=== PATIENT | female | born 1960 | race Caucasian/White ===

== ENCOUNTER → 2016-08-13 | Day surgery (SDC) | payer OTHER ==
[~2016-08-13] MED LIST: AZIT250T PO; DULO30CA2 PO; IV RINGERS,LACTATED 1000ML 1,000 ML IV SCH; LANS30CA PO; LEVO75TA5 PO; LIDOCAINE 2% PF Vial for OR 5 ML VIAL. ONE; MELO-150 PO; PROPOFOL 20 ML IV ONE; ROPI1TAB PO
[2016-08-13 08:20] VITALS: BP 133/75
== END | disposition home or self-care (01) ==
LOC: ENDOS 06:21
PROVIDERS: ATTEND Internal Medicine Gastroenterology
DX: K22.2 Esophageal obstruction (principal); K44.9 Diaphragmatic hernia without obstruction or gangrene; K29.70 Gastritis, unspecified, without bleeding; F41.9 Anxiety disorder, unspecified; F32.9 Major depressive disorder, single episode, unspecified; M19.90 Unspecified osteoarthritis, unspecified site; E03.9 Hypothyroidism, unspecified; Z80.3 Family history of malignant neoplasm of breast; Z87.891 Personal history of nicotine dependence; Z90.49 Acquired absence of other specified parts of digestive tract; Z98.51 Tubal ligation status
CPT/HCPCS: 43235; 43450; 99156; J2704

== ENCOUNTER 2016-12-09 05:50 | Observation (INO) | payer OTHER ==
[~2016-12-09] VITALS: Ht 180.3 cm; Wt 125.2 kg
[~2016-12-09 05:50] MED LIST changes: +ATOR20TA58 PO; -IV RINGERS,LACTATED 1000ML 1,000 ML IV SCH; -LIDOCAINE 2% PF Vial for OR 5 ML VIAL. ONE; +LIOT25TA3 PO; -MELO-150 PO; +MELO15TA23 PO; +MONT10TA9 PO; -PROPOFOL 20 ML IV ONE
[2016-12-09 06:47] LABS: BASO % 1 % (0-3); EOS % 3 % (0-3); HEMATOCRIT 39.6 % (36.0-47.0); HEMOGLOBIN 13.1 g/dL (12.0-15.5); LYMPH # 1.9 x10^3/uL (1.0-4.8); LYMPH % 28 % (24-48); MEAN CORPUSCULAR HEMOGLOBIN 28 pg (25-35); MEAN CORPUSCULAR HGB CONC 33 g/dL (31-37); MEAN CORPUSCULAR VOLUME 85 fL (79-100); MONO % 8 % (0-9); NEUT % 60 % (31-73); PLATELET COUNT 195 x10^3/uL (140-400); RED BLOOD COUNT 4.65 x10^6/uL (3.50-5.40); RED CELL DISTRIBUTION WIDTH 14.2 % (11.5-14.5); WHITE BLOOD COUNT 6.6 x10^3/uL (4.0-11.0)
[2016-12-09] MEDS ORDERED: LIDOCAINE 1% 1 ML SYRINGE. ID PRN (07:00)
[2016-12-09] MEDS ORDERED: ONDANSETRON PF 4 MG/2 ML VIAL. IV PRN ×2 (07:00→10:45)
[2016-12-09] MEDS ORDERED: IV RINGERS,LACTATED 1000ML 1,000 ML IV SCH (07:00)
[2016-12-09] MEDS ORDERED: fentaNYL PF VIAL 100 MCG/2 ML VIAL IV PRN (07:00)
[2016-12-09] MEDS ORDERED: HYDROmorphone 2 MG/ML VIAL IV PRN (07:00)
[2016-12-09] MEDS ORDERED: PROCHLORPERAZINE 10 MG/2 ML VIAL. IV PRN ×2 (07:00→10:45)
[2016-12-09] MEDS ORDERED: MORPHINE SULFATE 2 MG/ML DISP.SYRIN. IV PRN (07:00)
[2016-12-09] MEDS ORDERED: ESTROGENS, CONJ VAGINAL CREAM 30GM TUBE. ONE (07:12)
[2016-12-09] MEDS ORDERED: LIDOCAINE 1% PF 30 ML VIAL. ONE (07:16)
[2016-12-09] MEDS ORDERED: BUPIVAC MPF-EPI 0.5%-1:200000 30 ML VIAL. ONE ×2 (07:16→09:42)
[2016-12-09] MEDS ORDERED: DEXAMETHASONE SOD PHOS 20 MG/5 ML VIAL. ONE (07:43)
[2016-12-09] MEDS ORDERED: PROPOFOL 20 ML IV ONE (07:43)
[2016-12-09] MEDS ORDERED: MIDAZOLAM HCL/PF 2 MG/2 ML VIAL. ONE (07:43)
[2016-12-09] MEDS ORDERED: fentaNYL PF VIAL 100 MCG/2 ML VIAL ONE ×4 (07:43→11:00)
[2016-12-09] MEDS ORDERED: ROCURONIUM 100 MG/10 ML VIAL. ONE (07:43)
[2016-12-09] MEDS ORDERED: LIDOCAINE 2% PF Vial for OR 5 ML VIAL. ONE (07:43)
[2016-12-09] MEDS ORDERED: ONDANSETRON PF 4 MG/2 ML VIAL. ONE (07:43)
[2016-12-09] MEDS ORDERED: NEOSTIGMINE 10 MG/10 ML VIAL. ONE (07:49)
[2016-12-09] MEDS ORDERED: 0.9 % SODIUM CHLORIDE 50 ML VIAL. IJ ONE (08:24)
[2016-12-09] MEDS ORDERED: PHENYLEPHRINE 10 MG/ML VIAL. ONE (08:24)
[2016-12-09] MEDS ORDERED: GLYCOPYRROLATE 1 MG/5 ML VIAL. ONE (08:29)
[2016-12-09] MEDS ORDERED: KETOROLAC 30 MG/ML INJ FOR OR. INJ ONE (09:40)
--- NOTE | 2016-12-09 10:43 | PDOC ---
BRIEF OPERATIVE NOTE Pre-Op Diagnosis 1. MARIZOL 2. Complete Uterovaginal Prolapse Post-Op Diagnosis Same Procedure Performed 1. TVH & BSO 2. SSF 3. Bladder Sling 4. Anterior and Posterior Colporrhaphy Surgeon Dr. Fisher Anesthesia Type: General Blood Loss 300 ml Specimens Obtained uterus, cervix, connie. fallopian tubes and ovaries Findings complete uterovaginal prolapse with MARIZOL Complications none BEBO FISHER Jr, MD Dec 09, 2016 10:43
[2016-12-09] MEDS ORDERED: ZOLPIDEM 5 MG TABLET. PO PRN (10:45)
[2016-12-09] MEDS ORDERED: CALCIUM CARBONATE 500 MG TAB.CHEW PO PRN (10:45)
[2016-12-09] MEDS ORDERED: DEXTROSE 50% 25 GM / 50ML DISP.SYRIN. IV PRN (10:45)
[2016-12-09] MEDS ORDERED: diphenhydrAMINE HCL 25 MG CAPSULE PO PRN (10:45)
[2016-12-09] MEDS ORDERED: diphenhydrAMINE 50 MG/ML VIAL IV PRN (10:45)
[2016-12-09] MEDS ORDERED: 0.9 % SODIUM CHLORIDE 10 ML DISP.SYRIN. IV PRN (10:45)
[2016-12-09] MEDS: fentaNYL PF VIAL 100 MCG/2 ML VIAL IV PRN ×2 (11:32→12:02)
--- NOTE | 2016-12-09 12:25 | OP ---
DATE OF SURGERY: PREOPERATIVE DIAGNOSES: 1. Stress urinary incontinence. 2. Complete uterovaginal prolapse. POSTOPERATIVE DIAGNOSES: 1. Stress urinary incontinence. 2. Complete uterovaginal prolapse. PROCEDURE: 1. Transvaginal hysterectomy, bilateral salpingo-oophorectomy. 2. Sacrospinous ligament fixation. 3. Bladder sling placement. 4. Anterior and posterior colporrhaphy. SURGEON: Bebo Fisher M.D. ANESTHESIA: GETA. ESTIMATED BLOOD LOSS: 300 mL. COMPLICATIONS: None. FINDINGS: Complete uterovaginal prolapse with stress urinary incontinence. SUMMARY: A 56-year-old female who was diagnosed with complete uterovaginal prolapse and stress urinary incontinence required surgical procedure in the form of TVH, BSO, sacrospinous ligament fixation, anterior, posterior repair and suburethral bladder sling placement. The patient was counseled on risks, benefits and expectations and voiced a clear understanding to proceed. DESCRIPTION OF PROCEDURE: The patient was taken to surgery suite and placed in dorsal lithotomy position. She was prepped with Betadine solution and draped in a sterile fashion. After adequate anesthesia, a weighted speculum and curved Sam placed vaginally. Jason clamps were placed on the anterior and posterior lip of the cervix. A 0.5% Marcaine with epinephrine was injected in a circumferential manner. Bovie cautery was utilized to circumscribe the cervix. The vaginal mucosa was dissected away from the lower uterine segment using blunt dissection, a moist Ray-Radha. The parametrial tissues were clamped bilaterally with curved Christen clamps, cut and suture ligated with 2-0 Vicryl suture. The posterior cul-de-sac was entered sharply using curved Prado scissors. The long weighted speculum was placed. The anterior cul-de-sac was entered sharply using Metzenbaum scissors. The curved Linden was repositioned. The cardinal ligaments and uterosacral ligaments were clamped bilaterally, cut, and suture ligated. The uterus was retroverted, which the uteroovarian pedicles were clamped bilaterally, cut, and suture ligated. The uterus and cervix were then removed. [place] retractors were then used to grasp the right fallopian tube and ovary, which the right infundibula ligament was clamped with curved Christen clamps, cut, and suture ligated. Same process took place for the left adnexa. We now proceeded to the sacrospinous ligament fixation in which the right sacrospinous ligament was palpated. The Capio device was utilized to place permanent sutures through the medial aspect of the right sacrospinous ligament. This was then attached to the anterior and posterior vaginal cuff wall. This was performed with 2 sutures in this manner to provide good vaginal cuff support. The remainder of the vaginal cuff was reapproximated using 2-0 Vicryl suture in a xumqkt-br-wacac manner. We then proceeded with a bladder sling in which an Allis clamp was placed 1 cm below the urethral orifice on the anterior vaginal wall. A second Allis clamp was placed about 4 cm below the first Allis clamp on the anterior vaginal wall. A 0.5% Marcaine with epinephrine was injected in the periurethral space as well as between the 2 Allis clamps in a linear fashion. Scalpel was utilized to make a linear incision between the 2 Allis clamps as well as incisions in the groin region for the entry points to the Obtryx trocars. The anterior vaginal wall mucosa was dissected away from the pubovesical fascia using sharp dissection with Metzenbaum scissors as well as blunt dissection using moist Ray-Radha. The periurethral spaces were further dissected bluntly all the way to the obturator foramen bilaterally. The left trocar was then placed through the left entry point at the level of the clitoris where the abductus longus attached the pubic rami. This was passed through the obturator foramen guided with my index finger through the periurethral space. The suburethral mesh was then attached and trocars were removed in opposite fashion. Same process took place on the right groin region. Cystoscopy was performed in which the bladder was normal. There was no evidence of perforation. The uterovesical junctions were functioning normally. Cystoscope was removed. The suburethral bladder sling was then adjusted to loose fit using size 7 Hegar dilator. The exposed mesh at the groin region was removed using suture scissors. The groin incisions were reapproximated using Dermabond. We then proceeded to the anterior repair, which the pubovesical fascia was reapproximated using interrupted sutures of 2-0 Vicryl suture. The excess anterior vaginal wall mucosa was excised using Metzenbaum scissors. The remaining anterior vaginal wall mucosa was reapproximated using 2-0 Vicryl suture in a oumtnc-fc-mzycq manner. Attention was now placed on the rectocele in which the area of the defect was identified and a long Allis clamp was placed about 3 cm into the vaginal vault. Two Allis clamps were placed near the proximal portion towards the vaginal introitus for better retention of the posterior defect. A 0.5% Marcaine with epinephrine was injected underneath the posterior vaginal wall mucosa. Scalpel was utilized to make a transverse incision. Metzenbaum scissors were used to undermine the posterior vaginal wall mucosa up to about 3 cm in length. The endopelvic fascia was then dissected away from the posterior vaginal mucosa using blunt dissection using a moist Ray-Radha. The endopelvic fascia was reapproximated using interrupted sutures of 2-0 Vicryl suture. The excess posterior vaginal mucosa was removed. The remaining posterior vaginal wall mucosa was reapproximated using 2-0 Vicryl suture in a yyoqii-aw-xicbs manner. A Premarin soaked vaginal packing was placed. The patient tolerated the procedure well and was taken to recovery room in stable condition. Sponge and needle count correct x 3. BEBO FISHER MD DR: JEAN/edu JOB#: [id number] / [id number]
[2016-12-09 12:39] VITALS: BP 124/49
[2016-12-09 13:00] VITALS: BP 117/44
[2016-12-09] MEDS: KETOROLAC TROMETHAMINE 30 MG/ML INJ. IV PRN ×2 (13:23→19:44)
[2016-12-09] MEDS: GABAPENTIN 300 MG CAPSULE. PO SCH ×2 (14:00→22:45)
[2016-12-09 15:00] VITALS: BP 114/49
[2016-12-09] MEDS: oxyCODONE/APAP 5/325 1 TAB TABLET PO PRN ×2 (15:25→20:42)
[2016-12-09 19:40] VITALS: BP 120/81
[2016-12-09 23:00] VITALS: BP 126/92
[2016-12-10] MEDS: oxyCODONE/APAP 5/325 1 TAB TABLET PO PRN ×3 (01:34→16:59)
[2016-12-10 01:35] VITALS: BP 126/68
[2016-12-10 04:05] LABS: BASO % 0 % (0-3); EOS % 0 % (0-3); HEMATOCRIT 26.7 % (36.0-47.0); HEMOGLOBIN 8.7 g/dL (12.0-15.5); LYMPH # 1.5 x10^3/uL (1.0-4.8); LYMPH % 9 % (24-48); MEAN CORPUSCULAR HEMOGLOBIN 28 pg (25-35); MEAN CORPUSCULAR HGB CONC 33 g/dL (31-37); MEAN CORPUSCULAR VOLUME 85 fL (79-100); MONO % 7 % (0-9); NEUT % 84 % (31-73); PLATELET COUNT 234 x10^3/uL (140-400); RED BLOOD COUNT 3.13 x10^6/uL (3.50-5.40); RED CELL DISTRIBUTION WIDTH 14.4 % (11.5-14.5); WHITE BLOOD COUNT 17.1 x10^3/uL (4.0-11.0)
[2016-12-10 05:07] LABS: PLT ESTIMATE ADEQUATE (ADEQUATE)
[2016-12-10 06:23] VITALS: BP 126/62
--- NOTE | 2016-12-10 08:42 | PDOC ---
SURGICAL PROGRESS NOTE Subjective PT. feeling well. Pain controlled. Pt. tolerating regular diet and ambulating in room. Vital Signs Vital Signs Date Time Temp Pulse Resp B/P (MAP) Pulse Ox O2 Delivery O2 Flow Rate FiO2 12/10/16 06:23 98.0 104 20 126/62 (83) 92 Nasal Cannula 98.0 12/09/16 15:00 3.0 I&O Intake and Output 12/10/16 07:00 Intake Total 1980 ml Output Total 795 ml Balance 1185 ml Intake Oral 80 ml IV Total 1900 ml Output Urine Total 470 ml Emesis 25 ml Estimated Blood Loss 300 ml PATIENT HAS A PACE: Yes (Will have bladder challenge this afternoon.) General: Alert, Oriented X3, Cooperative HEENT: Atraumatic Lungs: Clear to auscultation Heart: Regular rate Abdomen: Normal bowel sounds, Soft, No tenderness, No masses Psych/Mental Status: Mental status NL Labs Laboratory Tests Test 12/09/16 06:30 12/10/16 03:40 White Blood Count 6.6 x10^3/uL (4.0-11.0) 17.1 x10^3/uL (4.0-11.0) Red Blood Count 4.65 x10^6/uL (3.50-5.40) 3.13 x10^6/uL (3.50-5.40) Hemoglobin 13.1 g/dL (12.0-15.5) 8.7 g/dL (12.0-15.5) Hematocrit 39.6 % (36.0-47.0) 26.7 % (36.0-47.0) Mean Corpuscular Volume 85 fL (79-100) 85 fL (79-100) Mean Corpuscular Hemoglobin 28 pg (25-35) 28 pg (25-35) Mean Corpuscular Hemoglobin Concent 33 g/dL (31-37) 33 g/dL (31-37) Red Cell Distribution Width 14.2 % (11.5-14.5) 14.4 % (11.5-14.5) Platelet Count 195 x10^3/uL (140-400) 234 x10^3/uL (140-400) Neutrophils (%) (Auto) 60 % (31-73) 84 % (31-73) Lymphocytes (%) (Auto) 28 % (24-48) 9 % (24-48) Monocytes (%) (Auto) 8 % (0-9) 7 % (0-9) Eosinophils (%) (Auto) 3 % (0-3) 0 % (0-3) Basophils (%) (Auto) 1 % (0-3) 0 % (0-3) Neutrophils # (Auto) 3.9 x10^3uL (1.8-7.7) 14.3 x10^3uL (1.8-7.7) Lymphocytes # (Auto) 1.9 x10^3/uL (1.0-4.8) 1.5 x10^3/uL (1.0-4.8) Monocytes # (Auto) 0.5 x10^3/uL (0.0-1.1) 1.3 x10^3/uL (0.0-1.1) Eosinophils # (Auto) 0.2 x10^3/uL (0.0-0.7) 0.0 x10^3/uL (0.0-0.7) Basophils # (Auto) 0.0 x10^3/uL (0.0-0.2) 0.0 x10^3/uL (0.0-0.2) Segmented Neutrophils % 87 % (35-66) Band Neutrophils % 1 % (0-9) Lymphocytes % 9 % (24-48) Monocytes % 3 % (0-10) Platelet Estimate Adequate (ADEQUATE) Laboratory Tests Test 12/10/16 03:40 White Blood Count 17.1 x10^3/uL (4.0-11.0) Red Blood Count 3.13 x10^6/uL (3.50-5.40) Hemoglobin 8.7 g/dL (12.0-15.5) Hematocrit 26.7 % (36.0-47.0) Mean Corpuscular Volume 85 fL (79-100) Mean Corpuscular Hemoglobin 28 pg (25-35) Mean Corpuscular Hemoglobin Concent 33 g/dL (31-37) Red Cell Distribution Width 14.4 % (11.5-14.5) Platelet Count 234 x10^3/uL (140-400) Neutrophils (%) (Auto) 84 % (31-73) Lymphocytes (%) (Auto) 9 % (24-48) Monocytes (%) (Auto) 7 % (0-9) Eosinophils (%) (Auto) 0 % (0-3) Basophils (%) (Auto) 0 % (0-3) Neutrophils # (Auto) 14.3 x10^3uL (1.8-7.7) Lymphocytes # (Auto) 1.5 x10^3/uL (1.0-4.8) Monocytes # (Auto) 1.3 x10^3/uL (0.0-1.1) Eosinophils # (Auto) 0.0 x10^3/uL (0.0-0.7) Basophils # (Auto) 0.0 x10^3/uL (0.0-0.2) Segmented Neutrophils % 87 % (35-66) Band Neutrophils % 1 % (0-9) Lymphocytes % 9 % (24-48) Monocytes % 3 % (0-10) Platelet Estimate Adequate (ADEQUATE) Assessment/Plan A: POD#1 s/p TVH, BSO, SSF, Bladder Sling and A&P Repair P: D/c home after bladder challenge. Problems: BEBO HUGHES Jr, MD Dec 10, 2016 08:42
--- NOTE | 2016-12-10 08:43 | DISCH ---
DISCHARGE INSTRUCTIONS Condition on Discharge Condition on Discharge: Stable Activity After Discharge Activity Instructions for Disc: Activity as tolerated Lifting Instructions after Dis: No heavy lifting Driving Instructions after Dis: Do not drive today Diet after Discharge Diet after Discharge: Regular Contacting the DRRosetta after DC Call your doctor for: Concerns you may have Follow-Up Follow up with: Dr. Fisher in 2 weeks. BEBO FISHER Jr, MD Dec 10, 2016 08:42
[2016-12-10] MEDS ORDERED: OXYC-323 PO (08:46)
[2016-12-10] MEDS ORDERED: DOCU-109 PO (08:46)
[2016-12-10] MEDS ORDERED: IBUP-1060 PO (08:46)
[2016-12-10] MEDS: SIMETHICONE 80 MG TAB.CHEW PO PRN ×2 (10:23→12:46)
[2016-12-10] MEDS: GABAPENTIN 300 MG CAPSULE. PO SCH (10:23)
--- NOTE | 2016-12-10 14:53 | PATHOLOGY ---
PATHOLOGY REPORT * * * * * * * * FINAL DIAGNOSIS: Uterus and separate segments of ovarian tissue, fallopian tube, and fibrovascular tissue, total vaginal hysterectomy with salpingo-oophorectomy: - Mild chronic inflammation of exocervix. - Mild chronic cervicitis with focal squamous metaplasia. - Nabothian cysts, cervix. - Atrophic endometrium. - Adenomyosis, uterine corpus, sub-basal, focal. - Leiomyoma, uterine corpus, intramural, small. - Single segment of fallopian tube identified. - Single segment of ovarian tissue identified showing involutional changes. COMMENT: There is no evidence of malignancy. Only a single segment of fallopian tube and ovarian tissue are identified. (JPM:db; 12/10/2016) REPORT ELECTRONICALLY SIGNED BY: Leighton Francisco M.D. DATE/TIME: 12/10/2016 14:52 * * * * * * * * GROSS PATHOLOGY: The specimen is received in formalin labeled "Hockley, Reuben, uterus, cervix, bilateral tubes and ovaries". Received is a 6.9 x 4.4 x 2.5 cm 48 g uterus with attached cervix. The uterine serosa is pink peter, smooth and glistening. The 1.2 x 0.7 cm cervical os is surrounded by pink peter, edematous appearing ectocervical mucosa. The uterus is oriented using the peritoneal reflection and the anterior paracervical margin is inked black. The uterus is opened laterally to reveal a yellow peter, corrugated endocervical canal measuring 2.5 cm in length. The endometrial cavity is roughly triangular in shape measuring 3.2 cm in length by 1.5 cm in width. The endometrium is pink peter and somewhat granular in appearance and measures 0.3 in thickness. Serial sectioning reveals a yellow peter, focally glandular myometrium measuring 1.2 cm in thickness. Also within the specimen container is a 5 g segment of extensively hemorrhagic tissue, measuring 4.1 x 2.0 x 1.2 cm in maximum dimensions. There is a black silk suture present on this segment. One area shows acosta yellow nodularity consistent with possible ovarian tissue. There is no fallopian tube readily identified grossly. Sectioning shows an apparent ovary, with a solid, acosta yellow cut surface. There are a few tubular structures present, but these are distorted by instrument teeth clamp sandy. There are several additional segments of pink peter tissue present, measuring 3.5 x 2.4 x 1.4 cm. There is a segment that may be consistent with fallopian tube, measuring 1.5 cm in length and 0.7 cm in diameter. There is no grossly recognizable ovarian tissue present within this segment. Service [employer] sections are submitted as follows: A1- anterior and posterior cervix A2- anterior endomyometrium A3- posterior endomyometrium A4- career representative sections of possible ovarian tissue A5- career representative sections of hemorrhagic tissue surrounding possible ovarian tissue A6- career representative sections of fallopian tube and surrounding tissue (JPM; 12/09/16) INITIAL CPT CODE(S): 79677 Professional services performed by [facility] at [address] [address] Technical services performed by [facility] at [address] [place] [address], [address], [place] [address]. SPECIMEN(S) RECEIVED: A.Uterus, cervix, bilateral tubes and ovaries CLINICAL HISTORY: Complete prolapse, stress urinary incontinence PATIENT: REUBEN TUTTLE Roxi /AGE: 2 1960 (Age: 56) PATIENT #: [id number] ALT CASE #: SPECIMEN COLLECTION DATE: 12/09/2016 SPECIMEN RECEIVED DATE: 12/09/2016 [facility] - [address] [place] [address] - PHONE: [phone] * * * END OF REPORT * * *
[2016-12-10 17:09] VITALS: BP 122/56
== END 2016-12-10 17:43 | disposition home or self-care (01) ==
LOC: SURG 05:50 → 3 NORTH 11:12
PROVIDERS: ADMIT Obstetrics & Gynecology; ATTEND Obstetrics & Gynecology
DX: N81.3 Complete uterovaginal prolapse (principal); N39.3 Stress incontinence (female) (male); N81.6 Rectocele
CPT/HCPCS: 36415; 57260; 57282; 57288; 58262; 85007; 85025; 86850; 86900; 86901; 96374; 96375; 96376; A4215; G0378; G0379; J0690; J0780; J1100; J1885; J2250; J2405; J2704; J2710; J3010; J3490; J7030; J7120; C1771; J2001

== ENCOUNTER 2016-12-11 11:35 | Observation (INO) | payer OTHER ==
[~2016-12-11] VITALS: Ht 152.4 cm; Wt 127.6 kg
[2016-12-11] VITALS (10 sets, daily range): BP systolic 111–133; BP diastolic 51–63
[~2016-12-11 11:35] MED LIST changes: +DOCU-109 PO; +IBUP-1060 PO; +OXYC-323 PO
--- NOTE | 2016-12-11 12:09 | PHYS DOC ---
Adult General Chief Complaint Chief Complaint: ABDOMINAL PAIN HPI HPI Patient is a 56 year old female presenting to the emergency department for evaluation of lower abdominal pain nausea sweats chills and leakage of urine. She is postop day 2 from transvaginal hysterectomy and bilateral oophorectomy and bladder sling. Patient says that she can feel the urine coming but she does not have the urge to urinate and everything just comes out on its own. She says that she has not passed gas or had a bowel movement since her surgery. Patient denies any vomiting fevers or significant amount of bleeding. I spoke to her surgeon Dr. Fisher on the phone and he recommended labs urinalysis and Orlando catheter placement. No imaging indicated if she is afebrile and labs are unremarkable. Review of Systems Review of Systems Constitutional: Denies fever. + chills [] Respiratory: Denies cough or shortness of breath [] Cardiovascular: No additional information not addressed in HPI [] GI: + abdominal pain, nausea. No vomiting, bloody stools or diarrhea [] : Denies dysuria or hematuria [] Musculoskeletal: Denies back pain or joint pain [] Integument: Denies rash or skin lesions [] Neurologic: Denies headache, focal weakness or sensory changes [] Current Medications Current Medications Current Medications Medications (Trade) Dose Ordered Sig/Regis Start Time Stop Time Status Last Admin Dose Admin Fentanyl Citrate (Fentanyl 2ml Vial) 50 mcg PRN Q2HR PRN 12/11/16 13:00 12/12/16 12:59 UNV Morphine Sulfate 5 mg 1X ONCE 12/11/16 12:30 12/11/16 12:31 DC 12/11/16 12:28 5 MG Ondansetron HCl (Zofran) 4 mg PRN Q8HRS PRN 12/11/16 13:00 12/12/16 12:59 UNV Allergies Allergies Allergies Coded Allergies Type Severity Reaction Last Updated Verified Sulfa (Sulfonamide Antibiotics) Allergy Intermediate Hives 12/09/16 Yes Physical Exam Physical Exam Constitutional: Well developed, well nourished, no acute distress, non-toxic appearance. [] Neck: Normal range of motion, no tenderness, supple, no stridor. [] Cardiovascular:Heart rate regular rhythm, no murmur [] Lungs & Thorax: Bilateral breath sounds clear to auscultation [] Abdomen: Bowel sounds normal, soft, positive suprapubic tenderness, no rebound or guarding, no masses, no pulsatile masses. BARK GRINDER exam revealed no obvious active bleeding and no urine in the vaginal vault. Some pain during speculum exam. Skin: Warm, dry, no erythema, no rash. [] Back: No tenderness, no CVA tenderness. [] Extremities: No tenderness, no cyanosis, no clubbing, ROM intact, no edema. [] Neurologic: Alert and oriented X 3, normal motor function, normal sensory function, no focal deficits noted. [] Current Patient Data Vital Signs Vital Signs Date Time Temp Pulse Resp B/P (MAP) Pulse Ox O2 Delivery O2 Flow Rate FiO2 12/11/16 12:28 21 93 Room Air 12/11/16 11:56 98.9 102 133/61 (85) 98.9 Lab Values Laboratory Tests Test 12/11/16 12:00 12/11/16 12:20 Urine Collection Type Unknown Urine Color Yellow Urine Clarity Cloudy Urine pH 8.0 Urine Specific [place] 1.025 Urine Protein 30 mg/dL (NEG-TRACE) Urine Glucose (UA) Negative mg/dL (NEG) Urine Ketones (Stick) Negative mg/dL (NEG) Urine Blood Large (NEG) Urine Nitrite Negative (NEG) Urine Bilirubin Negative (NEG) Urine Urobilinogen Dipstick 1.0 mg/dL (0.2 mg/dL) Urine Leukocyte Esterase Moderate (NEG) Urine RBC >40 /HPF (0-2) Urine WBC 20-40 /HPF (0-4) Urine Squamous Epithelial Cells Few /LPF Urine Bacteria 0 /HPF (0-FEW) Urine Mucus Mod /LPF White Blood Count 8.2 x10^3/uL (4.0-11.0) Red Blood Count 2.21 x10^6/uL (3.50-5.40) L Hemoglobin 6.4 g/dL (12.0-15.5) *L Hematocrit 18.9 % (36.0-47.0) *L Mean Corpuscular Volume 86 fL (79-100) Mean Corpuscular Hemoglobin 29 pg (25-35) Mean Corpuscular Hemoglobin Concent 34 g/dL (31-37) Red Cell Distribution Width 14.1 % (11.5-14.5) Platelet Count 151 x10^3/uL (140-400) Neutrophils (%) (Auto) 77 % (31-73) H Lymphocytes (%) (Auto) 15 % (24-48) L Monocytes (%) (Auto) 7 % (0-9) Eosinophils (%) (Auto) 0 % (0-3) Basophils (%) (Auto) 0 % (0-3) Neutrophils # (Auto) 6.3 x10^3uL (1.8-7.7) Lymphocytes # (Auto) 1.2 x10^3/uL (1.0-4.8) Monocytes # (Auto) 0.6 x10^3/uL (0.0-1.1) Eosinophils # (Auto) 0.0 x10^3/uL (0.0-0.7) Basophils # (Auto) 0.0 x10^3/uL (0.0-0.2) Sodium Level 143 mmol/L (136-145) Potassium Level 3.8 mmol/L (3.5-5.1) Chloride Level 105 mmol/L (98-107) Carbon Dioxide Level 32 mmol/L (21-32) Anion Gap 6 (6-14) Blood Urea Nitrogen 13 mg/dL (7-20) Creatinine 0.8 mg/dL (0.6-1.0) Estimated GFR (Cockcroft-Gault) 73.7 BUN/Creatinine Ratio 16 (6-20) Glucose Level 122 mg/dL (70-99) H Calcium Level 8.4 mg/dL (8.5-10.1) L Total Bilirubin 0.4 mg/dL (0.2-1.0) Aspartate Amino Transferase (AST) 26 U/L (15-37) Alanine Aminotransferase (ALT) 30 U/L (14-59) Alkaline Phosphatase 62 U/L (46-116) Total Protein 6.3 g/dL (6.4-8.2) L Albumin 3.3 g/dL (3.4-5.0) L Albumin/Globulin Ratio 1.1 (1.0-1.7) Laboratory Tests 12/11/16 12:20 Laboratory Tests 12/11/16 12:20 EKG EKG [] Radiology/Procedures Radiology/Procedures [] Course & Med Decision Making Course & Med Decision Making Patient has had progressive drop in her hemoglobin. Given patient is feeling worse will admit for transfusion. Surgeon also asked me to order CT abdomen and pelvis to evaluate hematoma. Patient admitted in stable but guarded condition. Dragon Disclaimer Dragon Disclaimer This electronic medical record was generated, in whole or in part, using a voice recognition dictation system. Departure Departure Impression: Primary Impression: Anemia Additional Impression: Abdominal pain Disposition: ADMITTED INPATIENT Admitting Physician: Other (PEGHEE) Condition: GUARDED Referrals: SHUN DURAN MD (PCP) Problem Qualifiers Primary Impression: Anemia Anemia type: iron deficiency Iron deficiency anemia type: unspecified iron deficiency Qualified Codes: D50.9 - Iron deficiency anemia, unspecified LINDY MATUTE DO Dec 11, 2016 12:09
[2016-12-11 12:26] LABS: BILIRUBIN,URINE NEGATIVE (NEG); GLUCOSE,URINE NEGATIVE (NEG); NITRITE,URINE NEGATIVE (NEG); PROTEIN,URINE 30 mg/dL (NEG-TRACE)
[2016-12-11] MEDS ORDERED: MORPHINE SULFATE 10 MG/ML VIAL. IV ONE (12:30)
[2016-12-11] MEDS ORDERED: ONDANSETRON PF 4 MG/2 ML VIAL. IV ONE (12:30)
[2016-12-11 12:36] LABS: BASO % 0 % (0-3); EOS % 0 % (0-3); LYMPH # 1.2 x10^3/uL (1.0-4.8); LYMPH % 15 % (24-48); MEAN CORPUSCULAR HEMOGLOBIN 29 pg (25-35); MEAN CORPUSCULAR HGB CONC 34 g/dL (31-37); MEAN CORPUSCULAR VOLUME 86 fL (79-100); MONO % 7 % (0-9); NEUT % 77 % (31-73); PLATELET COUNT 151 x10^3/uL (140-400); RED BLOOD COUNT 2.21 x10^6/uL (3.50-5.40); RED CELL DISTRIBUTION WIDTH 14.1 % (11.5-14.5); WHITE BLOOD COUNT 8.2 x10^3/uL (4.0-11.0)
[2016-12-11 12:37] LABS: CALCIUM 8.4 mg/dL (8.5-10.1); CREATININE 0.8 mg/dL (0.6-1.0); GFR 73.7; POTASSIUM 3.8 mmol/L (3.5-5.1)
[2016-12-11 12:41] LABS: HEMATOCRIT 18.9 % (36.0-47.0); HEMOGLOBIN 6.4 g/dL (12.0-15.5)
[2016-12-11 12:43] LABS: ALBUMIN 3.3 g/dL (3.4-5.0); ALBUMIN/GLOBULIN RATIO 1.1 (1.0-1.7); TOTAL BILIRUBIN 0.4 mg/dL (0.2-1.0); TOTAL PROTEIN 6.3 g/dL (6.4-8.2)
[2016-12-11 12:47] LABS: BACTERIA,URINE 0 /HPF (0-FEW); RBC,URINE >40 /HPF (0-2); WBC,URINE 20-40 /HPF (0-4)
[2016-12-11 12:48] LABS: SQUAMOUS EPITHELIAL CELL,UR FEW /LPF
[2016-12-11] MEDS ORDERED: ONDANSETRON PF 4 MG/2 ML VIAL. IV PRN (13:00)
[2016-12-11] MEDS ORDERED: fentaNYL PF VIAL 100 MCG/2 ML VIAL IV PRN (13:00)
[2016-12-11] MEDS ORDERED: CONTRAST GIVEN MC PRN (13:15)
[2016-12-11 13:22] LABS: INR 1.1 (0.8-1.1); PROTHROMBIN TIME PATIENT 13.6 SEC (11.7-14.0)
[2016-12-11] MEDS ORDERED: IOHEXOL 300 MG/ML 75 ML VIAL IV ONE (13:30)
--- NOTE | 2016-12-11 14:53 | RAD ---
Indication: Lower abdominal pain and nausea. No sensation to urinate. Urinary incontinence. Recent transvaginal hysterectomy and old fracture May with bladder sling. Technique: Axial images and coronal and sagittal reformatted images are provided. 75 mL of intravenous Omnipaque 300 was administered without complication. No comparison is available. One or more of the following individualized dose reduction techniques were utilized for this examination: 1. Automated exposure control 2. Adjustment of the mA and/or kV according to patient size 3. Use of iterative reconstruction technique Findings: The lung bases are clear. There is no pleural effusion. The heart is not enlarged. Subcentimeter low-density lesion in the liver may represent small cysts, too small to characterize. The liver dome was initially clipped but the technologist did rescan the upper abdomen to include the entirety of the liver. Small amount of hemoperitoneum along the inferior margin of the liver is noted. Gallbladder is absent. Spleen is not enlarged. Perisplenic fluid is noted measuring 85 Hounsfield units. Small amount of hemoperitoneum is noted in the left paracolic gutter. Pancreas and adrenals are unremarkable. Kidneys are symmetrically perfused. There is atheromatous disease in the abdominal aorta without aneurysm. Fat-containing umbilical hernia is noted. There is no small bowel obstruction or mural thickening. There are a few diverticula in the colon. Normal appendix is probably visualized. Hyperdense stranding in the pelvis is likely postsurgical. More focal hyperdensities within the pelvis likely represents hematomas measuring 7 x 7 cm and 5 x 3 cm. It is difficult to separate the pelvic hematomas from any pelvic small bowel loops without oral contrast. Small amount of retroperitoneal blood extends on the left along the descending colon. This is in addition to the hemoperitoneum described above. Extraluminal foci of gas to the left of the bladder are noted and could be postsurgical. Integrity of the bladder wall cannot be confirmed. Bladder is decompressed by Orlando catheter. Uterus is absent. There are degenerative changes in the spine. Impression: 1. Hyperdense lesions within the pelvis likely represent postoperative hematomas. No peripherally enhancing collection to suggest an abscess is identified. 2. In addition to the pelvic hematomas and a small amount of retroperitoneal hemorrhage, there is hemoperitoneum most notable perisplenic. This may also be postsurgical. 3. A few tiny foci of gas which may be extraluminal in the pelvis, correlate with the timing of the patient's recent surgery. Bladder perforation cannot be excluded.
[2016-12-11] MEDS: oxyCODONE/APAP 5/325 1 TAB TABLET PO PRN (16:02)
[2016-12-11] MEDS ORDERED: HYDROmorphone 2 MG/ML VIAL IM PRN (17:00)
--- NOTE | 2016-12-11 17:32 | PDOC1 ---
History and Physical Date of Admission Date of Admission DATE: 12/11/16 TIME: 17:26 Identification/Chief Complaint Chief Complaint leakage of urine and back pain Problems: Source Source: Patient History of Present Illness History of Present Illness 56 y/o presented to ED with c/o leakage of urine and low back pain for the past day. No fevers, chills, night sweats, CP or SOB. She reports a lot of fatigue and mild dizziness. She had TVH, BSO, SSF, Bladder Sling and A&P Repair 2 days ago. Past Surgical History Past Surgical History: Hysterectomy, Other (SSF, Bladder sling and A&P repair) Current Problem List Problem List Problems Medical Problems: (1) Abdominal pain Status: Acute Problems: Current Medications Current Medications Current Medications Ondansetron HCl (Zofran) 8 mg 1X ONCE IV Last administered on 12/11/16 12:26 ; Start 12/11/16 at 12:30; Stop 12/11/16 at 12:31; Status DC Morphine Sulfate 5 mg 1X ONCE IV Last administered on 12/11/16 12:28; Start 12/11/16 at 12:30; Stop 12/11/16 at 12:31; Status DC Ondansetron HCl (Zofran) 4 mg PRN Q8HRS PRN IV NAUSEA/VOMITING; Start 12/11/16 at 13:00; Stop 12/12/16 at 12:59 Fentanyl Citrate (Fentanyl 2ml Vial) 50 mcg PRN Q2HR PRN IV PAIN; Start at 13:00; Stop 12/12/16 at 12:59 Iohexol (Omnipaque 300 Mg/ml) 75 ml 1X ONCE IV Last administered on 12/11/16 13:55; Start 12/11/16 at 13:30; Stop 12/11/16 at 13:31; Status DC Info (Do NOT chart on this entry -- for MONITORING) 1 each PRN DAILY PRN MC SEE COMMENTS; Start 12/11/16 at 13:15; Stop 12/13/16 at 13:14 Ibuprofen (Motrin) 800 mg PRN Q6HRS PRN PO INFLAMMATION; Start 12/11/16 at 15: 15 Oxycodone/ Acetaminophen (Percocet 5/325) 1 tab PRN Q4HRS PRN PO PAIN; Start at 15:15 Oxycodone/ Acetaminophen (Percocet 5/325) 2 tab PRN Q4HRS PRN PO PAIN Last administered on 12/11/16t 16:02; Start 12/11/16 at 15:15 Hydromorphone HCl (Dilaudid) 2 mg PRN Q4HRS PRN IM PAIN; Start 12/11/16 at 17: 00 Active Scripts Active Percocet 5-325 Mg Tablet (Oxycodone/Acetaminophen) 1 Each Tablet 1 Tab PO PRN Q6HRS PRN Ibuprofen 800 Mg Tablet 800 Mg PO PRN Q6HRS PRN Colace (Docusate Sodium) 100 Mg Capsule 100 Mg PO BID Reported Atorvastatin Calcium 20 Mg Tablet 20 Mg PO DAILY Montelukast Sodium Tablet (Montelukast Sodium) 10 Mg Tablet 10 Mg PO DAILY Liothyronine Sodium 25 Mcg Tablet 10 Mcg PO DAILY Cymbalta (Duloxetine Hcl) 30 Mg Capsule.dr 30 Mg PO DAILY Lansoprazole 30 Mg Capsule.dr 30 Mg PO DAILY Requip (Ropinirole Hcl) 1 Mg Tablet 1 Mg PO TID Meloxicam 15 Mg Tablet 15 Mg PO DAILY Levothyroxine Sodium 75 Mcg Tablet 75 Mcg PO DAILYAC Allergies Allergies: Coded Allergies: Sulfa (Sulfonamide Antibiotics) (Verified Allergy, Intermediate, Hives, ) ROS General: YES: Fatigue, Appetite, No: Chills, Night Sweats, Malaise, Other PSYCHOLOGICAL ROS: No: Anxiety, Behavioral Disorder, Concentration difficultie , Decreased libido, Depression, Disorientation, Hallucinations, Hostility, Irritablity, Memory difficulties, Mood Swings, Obsessive thoughts, Physical abuse, Sexual abuse, Sleep disturbances, Suicidal ideation, Other Eyes: No Blurry vision, No Decreased vision, No Double vision, No Dry eyes, No Excessive tearing, No Eye Pain, No Itchy Eyes, No Loss of vision, No Photophobia , No Scotomata, No Uses contacts, No Uses glasses, No Other HEENT: YES: Vertigo, No: Heacaches, Visual Changes, Hearing change, Nasal congestion, Nasal discharge, Oral lesions, Sinus pain, Sore Throat, Epistaxis, Sneezing, Snoring, Tinnitus, Vocal changes, Other ALLERGY AND IMMUNOLOGY: No: Hives, Insect Bite Sensitivity, Itchy/Watery Eyes, Nasal Congestion, Post Nasal Drip, Seasonal Allergies, Other Hematological and Lymphatic: No: Bleeding Problems, Blood Clots, Blood Transfusions, Brusing, Night Sweats, Pallor, Swollen Lymph Nodes, Other ENDOCRINE: No: Breast Changes, Galactorrhea, Hair Pattern Changes, Hot Flashes , Malaise/lethargy, Mood Swings, Palpitations, Polydipsia/polyuria, Skin Changes , Temperature Intolerance, Unexpected Weight Changes, Other Breast: No New/Changing Breast Lumps, No Nipple changes, No Nipple discharge, No Other Respiratory: No: Cough, Hemoptysis, Orthopnea, Pleuritic Pain, Shortness of breath, SOB with excertion, Sputum Changes, Stridor, Tachypnea, Wheezing, Other Cardiovascular: No Chest Pain, No Palpitations, No Orthopnea, No Paroxysmal Noc. Dyspnea, No Edema, No Lt Headedness, No Other Gastrointestinal: Yes Abdominal Pain, No Nausea, No Vomiting, No Diarrhea, No Constipation, No Melena, No Hematochezia, No Other Genitourinary: YES Incontinence, No Dysuria, No Frequency, No Hematuria, No Retention, No Discharge, No Urgency, No Pain, No Flank Pain, No Other, No , No , No , No , No , No , No Physical Exam General: Alert, Oriented X3, Cooperative HEENT: Atraumatic Lungs: Clear to auscultation Heart: S1S2 Breasts: Normal Abdomen: Normal bowel sounds, Soft, No tenderness, No masses PELVIC: Nml ext genitalia, Nml ext vulva, Nml ext vagina Vitals Vitals Vital Signs Date Time Temp Pulse Resp B/P (MAP) Pulse Ox O2 Delivery O2 Flow Rate FiO2 12/11/16 16:00 98.1 83 18 115/51 98.1 12/11/16 13:30 92 Room Air Labs Labs Laboratory Tests Test 12/11/16 12:00 12/11/16 12:20 Urine Collection Type Unknown Urine Color Yellow Urine Clarity Cloudy Urine pH 8.0 Urine Specific [place] 1.025 Urine Protein 30 mg/dL (NEG-TRACE) Urine Glucose (UA) Negative mg/dL (NEG) Urine Ketones (Stick) Negative mg/dL (NEG) Urine Blood Large (NEG) Urine Nitrite Negative (NEG) Urine Bilirubin Negative (NEG) Urine Urobilinogen Dipstick 1.0 mg/dL (0.2 mg/dL) Urine Leukocyte Esterase Moderate (NEG) Urine RBC >40 /HPF (0-2) Urine WBC 20-40 /HPF (0-4) Urine Squamous Epithelial Cells Few /LPF Urine Bacteria 0 /HPF (0-FEW) Urine Mucus Mod /LPF White Blood Count 8.2 x10^3/uL (4.0-11.0) Red Blood Count 2.21 x10^6/uL (3.50-5.40) Hemoglobin 6.4 g/dL (12.0-15.5) Hematocrit 18.9 % (36.0-47.0) Mean Corpuscular Volume 86 fL (79-100) Mean Corpuscular Hemoglobin 29 pg (25-35) Mean Corpuscular Hemoglobin Concent 34 g/dL (31-37) Red Cell Distribution Width 14.1 % (11.5-14.5) Platelet Count 151 x10^3/uL (140-400) Neutrophils (%) (Auto) 77 % (31-73) Lymphocytes (%) (Auto) 15 % (24-48) Monocytes (%) (Auto) 7 % (0-9) Eosinophils (%) (Auto) 0 % (0-3) Basophils (%) (Auto) 0 % (0-3) Neutrophils # (Auto) 6.3 x10^3uL (1.8-7.7) Lymphocytes # (Auto) 1.2 x10^3/uL (1.0-4.8) Monocytes # (Auto) 0.6 x10^3/uL (0.0-1.1) Eosinophils # (Auto) 0.0 x10^3/uL (0.0-0.7) Basophils # (Auto) 0.0 x10^3/uL (0.0-0.2) Prothrombin Time 13.6 SEC (11.7-14.0) Prothromb Time International Ratio 1.1 (0.8-1.1) Activated Partial Thromboplast Time 25 SEC (24-38) Sodium Level 143 mmol/L (136-145) Potassium Level 3.8 mmol/L (3.5-5.1) Chloride Level 105 mmol/L (98-107) Carbon Dioxide Level 32 mmol/L (21-32) Anion Gap 6 (6-14) Blood Urea Nitrogen 13 mg/dL (7-20) Creatinine 0.8 mg/dL (0.6-1.0) Estimated GFR (Cockcroft-Gault) 73.7 BUN/Creatinine Ratio 16 (6-20) Glucose Level 122 mg/dL (70-99) Calcium Level 8.4 mg/dL (8.5-10.1) Total Bilirubin 0.4 mg/dL (0.2-1.0) Aspartate Amino Transf (AST/SGOT) 26 U/L (15-37) Alanine Aminotransferase (ALT/SGPT) 30 U/L (14-59) Alkaline Phosphatase 62 U/L (46-116) Total Protein 6.3 g/dL (6.4-8.2) Albumin 3.3 g/dL (3.4-5.0) Albumin/Globulin Ratio 1.1 (1.0-1.7) Laboratory Tests Test 12/11/16 12:00 12/11/16 12:20 Urine Collection Type Unknown Urine Color Yellow Urine Clarity Cloudy Urine pH 8.0 Urine Specific [place] 1.025 Urine Protein 30 mg/dL (NEG-TRACE) Urine Glucose (UA) Negative mg/dL (NEG) Urine Ketones (Stick) Negative mg/dL (NEG) Urine Blood Large (NEG) Urine Nitrite Negative (NEG) Urine Bilirubin Negative (NEG) Urine Urobilinogen Dipstick 1.0 mg/dL (0.2 mg/dL) Urine Leukocyte Esterase Moderate (NEG) Urine RBC >40 /HPF (0-2) Urine WBC 20-40 /HPF (0-4) Urine Squamous Epithelial Cells Few /LPF Urine Bacteria 0 /HPF (0-FEW) Urine Mucus Mod /LPF White Blood Count 8.2 x10^3/uL (4.0-11.0) Red Blood Count 2.21 x10^6/uL (3.50-5.40) Hemoglobin 6.4 g/dL (12.0-15.5) Hematocrit 18.9 % (36.0-47.0) Mean Corpuscular Volume 86 fL (79-100) Mean Corpuscular Hemoglobin 29 pg (25-35) Mean Corpuscular Hemoglobin Concent 34 g/dL (31-37) Red Cell Distribution Width 14.1 % (11.5-14.5) Platelet Count 151 x10^3/uL (140-400) Neutrophils (%) (Auto) 77 % (31-73) Lymphocytes (%) (Auto) 15 % (24-48) Monocytes (%) (Auto) 7 % (0-9) Eosinophils (%) (Auto) 0 % (0-3) Basophils (%) (Auto) 0 % (0-3) Neutrophils # (Auto) 6.3 x10^3uL (1.8-7.7) Lymphocytes # (Auto) 1.2 x10^3/uL (1.0-4.8) Monocytes # (Auto) 0.6 x10^3/uL (0.0-1.1) Eosinophils # (Auto) 0.0 x10^3/uL (0.0-0.7) Basophils # (Auto) 0.0 x10^3/uL (0.0-0.2) Prothrombin Time 13.6 SEC (11.7-14.0) Prothromb Time International Ratio 1.1 (0.8-1.1) Activated Partial Thromboplast Time 25 SEC (24-38) Sodium Level 143 mmol/L (136-145) Potassium Level 3.8 mmol/L (3.5-5.1) Chloride Level 105 mmol/L (98-107) Carbon Dioxide Level 32 mmol/L (21-32) Anion Gap 6 (6-14) Blood Urea Nitrogen 13 mg/dL (7-20) Creatinine 0.8 mg/dL (0.6-1.0) Estimated GFR (Cockcroft-Gault) 73.7 BUN/Creatinine Ratio 16 (6-20) Glucose Level 122 mg/dL (70-99) Calcium Level 8.4 mg/dL (8.5-10.1) Total Bilirubin 0.4 mg/dL (0.2-1.0) Aspartate Amino Transf (AST/SGOT) 26 U/L (15-37) Alanine Aminotransferase (ALT/SGPT) 30 U/L (14-59) Alkaline Phosphatase 62 U/L (46-116) Total Protein 6.3 g/dL (6.4-8.2) Albumin 3.3 g/dL (3.4-5.0) Albumin/Globulin Ratio 1.1 (1.0-1.7) VTE Prophylaxis Ordered VTE Prophylaxis Devices: No VTE Pharmacological Prophylaxi: No Assessment/Plan Assessment/Plan A: s/p TVH, BSO, Bladder sling, SSF and A&P repair with hematoma per CT scan Acute blood loss from surgery anemia P: Admit for pain management and blood transfusion 2 Units PRBC's. Hematoma appears stable. BEBO HUGHES Jr, MD Dec 11, 2016 17:32
[2016-12-11] MEDS: DOCUSATE SODIUM 100 MG CAPSULE. PO SCH (19:47)
[2016-12-11 23:36] LABS: HEMOGLOBIN 8.7 g/dL (12.0-15.5)
[2016-12-12] MEDS: oxyCODONE/APAP 5/325 1 TAB TABLET PO PRN (01:14)
[2016-12-12 06:00] VITALS: BP 110/53
[2016-12-12 07:14] LABS: BASO % 1 % (0-3); EOS % 2 % (0-3); HEMATOCRIT 25.8 % (36.0-47.0); HEMOGLOBIN 8.5 g/dL (12.0-15.5); LYMPH # 2.1 x10^3/uL (1.0-4.8); LYMPH % 24 % (24-48); MEAN CORPUSCULAR HEMOGLOBIN 29 pg (25-35); MEAN CORPUSCULAR HGB CONC 33 g/dL (31-37); MEAN CORPUSCULAR VOLUME 87 fL (79-100); MONO % 7 % (0-9); NEUT % 66 % (31-73); PLATELET COUNT 153 x10^3/uL (140-400); RED BLOOD COUNT 2.95 x10^6/uL (3.50-5.40); RED CELL DISTRIBUTION WIDTH 14.3 % (11.5-14.5); WHITE BLOOD COUNT 8.6 x10^3/uL (4.0-11.0)
[2016-12-12 07:30] LABS: CALCIUM 8.4 mg/dL (8.5-10.1); CREATININE 0.8 mg/dL (0.6-1.0); GFR 73.7; POTASSIUM 3.8 mmol/L (3.5-5.1)
[2016-12-12] MEDS: IBUPROFEN 800 MG TABLET. PO PRN ×3 (08:43→20:56)
[2016-12-12] MEDS: DOCUSATE SODIUM 100 MG CAPSULE. PO SCH ×2 (08:43→17:13)
[2016-12-12] MEDS ORDERED: MAGNESIUM HYDROXIDE 2,400 MG/30 ML ORAL.SUSP. PO PRN (08:45)
[2016-12-12 11:30] VITALS: BP 101/56
--- NOTE | 2016-12-12 12:54 | RAD ---
Indication: Palpitations. Hysterectomy 3 days ago. Decreased O2 saturations. Technique: Upright portable chest radiograph was obtained. Comparison is from July 19, 2010. Findings: There is new mild elevation of the right hemidiaphragm. The lungs are clear. The cardiopulmonary silhouette is within normal limits. The bony structures are intact. Impression: No active pulmonary disease.
--- NOTE | 2016-12-12 12:55 | EKG ---
[facility] [address] [place] [address] Test Date: 2016-12-12 Test Time: 12:53:00 Pat Name: REUBEN TUTTLE Department: Room: 341 Gender: F Guard Immigration: : 1960 Requested By: BEBO HUGHES Order Number: [id number] Reading MD: Natacha Aleman Measurements Intervals [place] Rate: 72 P: 0 PA: 170 QRS: 43 QRSD: 76 T: 24 QT: 354 QTc: 389 Interpretive Statements SINUS RHYTHM NORMAL EKG Electronically Signed On 12-12-2016 20:22:21 CDT by Natacha Aleman
[2016-12-12] MEDS ORDERED: IOHEXOL 240 MG/ML 50ML VIAL. PO ONE (13:30)
[2016-12-12] MEDS ORDERED: IOHEXOL 300 MG/ML 75 ML VIAL IV ONE (13:30)
[2016-12-12 13:33] LABS: ALBUMIN/GLOBULIN RATIO 0.9 (1.0-1.7); CALCIUM 8.4 mg/dL (8.5-10.1); CREATININE 0.7 mg/dL (0.6-1.0); GFR 85.9; POTASSIUM 3.7 mmol/L (3.5-5.1); TOTAL BILIRUBIN 0.5 mg/dL (0.2-1.0); TOTAL PROTEIN 6.3 g/dL (6.4-8.2)
--- NOTE | 2016-12-12 15:23 | RAD ---
Indication: Postoperative complications related to the bladder sling and hysterectomy. Technique: Axial images and coronal and sagittal reformatted images are provided. Oral contrast and 75 mL of intravenous Omnipaque 300 was administered without complication. Comparison is from one day ago. One or more of the following individualized dose reduction techniques were utilized for this examination: 1. Automated exposure control 2. Adjustment of the mA and/or kV according to patient size 3. Use of iterative reconstruction technique Findings: There is minimal atelectasis in the lung bases. There is a minimal right pleural effusion. Heart is not enlarged. Liver, spleen, pancreas, and adrenals are unchanged. Gallbladder is absent. Kidneys are symmetrically perfused. There is atheromatous disease in the abdominal aorta. Contrast in the esophagus may be secondary to reflux. There is no small bowel obstruction or mural thickening. Contrast has reached the proximal colon. There are a few diverticula in the colon. Hemoperitoneum has decreased, there is still some residual in the left paracolic gutter. Hemoperitoneum along the liver and spleen on prior study no longer is visualized. There is again retroperitoneal hemorrhage noted on the left which is similar to prior. Pelvic hematomas are unchanged. There are 3 separate areas of pelvic hematoma, may all communicate. Free pelvic fluid is noted as well. Air within the bladder may be related to fully catheter. The extraluminal foci of gas noted previously are not definitely visualized on today's study. Uterus is absent. Impression: 1. Decreased hemoperitoneum compared to previous study. 2. Pelvic hematomas are unchanged. Left retroperitoneal hemorrhage is unchanged. 3. Questionable foci of extraluminal gas on prior study have resolved.
[2016-12-12 15:30] VITALS: BP 110/65
--- NOTE | 2016-12-12 18:20 | PDOC ---
SURGICAL PROGRESS NOTE Subjective Pt. feeling better with less pain. She reports h/o irregular heart beat for past 2 years. EKG and CXR were normal. She had audible irregular heart beat and will need telemetry and Cardiology consult. Vital Signs Vital Signs Date Time Temp Pulse Resp B/P (MAP) Pulse Ox O2 Delivery O2 Flow Rate FiO2 12/12/16 12:29 97 Nasal Cannula 2.0 12/12/16 11:30 99.0 77 22 101/56 (71) 99.0 I&O Intake and Output 12/12/16 07:00 Intake Total 2180 ml Output Total 700 ml Balance 1480 ml Intake Blood Product IV Normal Saline Flush 2180 ml Output Urine Total 700 ml PATIENT HAS A PACE: Yes General: Alert, Oriented X3, Cooperative, No acute distress HEENT: Mucous membr. moist/pink Lungs: Clear to auscultation, Normal air movement Heart: Regular rate, Normal S1, Normal S2, No murmurs Abdomen: Normal bowel sounds, Soft, No tenderness, No hepatosplenomegaly, No masses Extremities: No clubbing, No cyanosis, No edema, Normal pulses, No tenderness/ swelling Skin: No rashes, No breakdown, No significant lesion Neuro: Normal gait, Normal speech, Strength at 5/5 X4 ext, Normal tone, Sensation intact, Reflexes 2+ Psych/Mental Status: Mental status NL, Mood NL Labs Laboratory Tests Test 12/11/16 12:00 12/11/16 12:20 12/11/16 23:30 12/12/16 07:00 Urine Collection Type Unknown Urine Color Yellow Urine Clarity Cloudy Urine pH 8.0 Urine Specific [place] 1.025 Urine Protein 30 mg/dL (NEG-TRACE) Urine Glucose (UA) Negative mg/dL (NEG) Urine Ketones (Stick) Negative mg/dL (NEG) Urine Blood Large (NEG) Urine Nitrite Negative (NEG) Urine Bilirubin Negative (NEG) Urine Urobilinogen Dipstick 1.0 mg/dL (0.2 mg/dL) Urine Leukocyte Esterase Moderate (NEG) Urine RBC >40 /HPF (0-2) Urine WBC 20-40 /HPF (0-4) Urine Squamous Epithelial Cells Few /LPF Urine Bacteria 0 /HPF (0-FEW) Urine Mucus Mod /LPF White Blood Count 8.2 x10^3/uL (4.0-11.0) 8.6 x10^3/uL (4.0-11.0) Red Blood Count 2.21 x10^6/uL (3.50-5.40) 2.95 x10^6/uL (3.50-5.40) Hemoglobin 6.4 g/dL (12.0-15.5) 8.7 g/dL (12.0-15.5) 8.5 g/dL (12.0-15.5) Hematocrit 18.9 % (36.0-47.0) 26.0 % (36.0-47.0) 25.8 % (36.0-47.0) Mean Corpuscular Volume 86 fL (79-100) 87 fL (79-100) Mean Corpuscular Hemoglobin 29 pg (25-35) 29 pg (25-35) Mean Corpuscular Hemoglobin Concent 34 g/dL (31-37) 34 g/dL (31-37) 33 g/dL (31-37) Red Cell Distribution Width 14.1 % (11.5-14.5) 14.3 % (11.5-14.5) Platelet Count 151 x10^3/uL (140-400) 153 x10^3/uL (140-400) Neutrophils (%) (Auto) 77 % (31-73) 66 % (31-73) Lymphocytes (%) (Auto) 15 % (24-48) 24 % (24-48) Monocytes (%) (Auto) 7 % (0-9) 7 % (0-9) Eosinophils (%) (Auto) 0 % (0-3) 2 % (0-3) Basophils (%) (Auto) 0 % (0-3) 1 % (0-3) Neutrophils # (Auto) 6.3 x10^3uL (1.8-7.7) 5.7 x10^3uL (1.8-7.7) Lymphocytes # (Auto) 1.2 x10^3/uL (1.0-4.8) 2.1 x10^3/uL (1.0-4.8) Monocytes # (Auto) 0.6 x10^3/uL (0.0-1.1) 0.6 x10^3/uL (0.0-1.1) Eosinophils # (Auto) 0.0 x10^3/uL (0.0-0.7) 0.2 x10^3/uL (0.0-0.7) Basophils # (Auto) 0.0 x10^3/uL (0.0-0.2) 0.0 x10^3/uL (0.0-0.2) Prothrombin Time 13.6 SEC (11.7-14.0) Prothromb Time International Ratio 1.1 (0.8-1.1) Activated Partial Thromboplast Time 25 SEC (24-38) Sodium Level 143 mmol/L (136-145) 141 mmol/L (136-145) Potassium Level 3.8 mmol/L (3.5-5.1) 3.8 mmol/L (3.5-5.1) Chloride Level 105 mmol/L (98-107) 104 mmol/L (98-107) Carbon Dioxide Level 32 mmol/L (21-32) 31 mmol/L (21-32) Anion Gap 6 (6-14) 6 (6-14) Blood Urea Nitrogen 13 mg/dL (7-20) 14 mg/dL (7-20) Creatinine 0.8 mg/dL (0.6-1.0) 0.8 mg/dL (0.6-1.0) Estimated GFR (Cockcroft-Gault) 73.7 73.7 BUN/Creatinine Ratio 16 (6-20) Glucose Level 122 mg/dL (70-99) 99 mg/dL (70-99) Calcium Level 8.4 mg/dL (8.5-10.1) 8.4 mg/dL (8.5-10.1) Total Bilirubin 0.4 mg/dL (0.2-1.0) Aspartate Amino Transf (AST/SGOT) 26 U/L (15-37) Alanine Aminotransferase (ALT/SGPT) 30 U/L (14-59) Alkaline Phosphatase 62 U/L (46-116) Total Protein 6.3 g/dL (6.4-8.2) Albumin 3.3 g/dL (3.4-5.0) Albumin/Globulin Ratio 1.1 (1.0-1.7) Test 12/12/16 13:01 Sodium Level 141 mmol/L (136-145) Potassium Level 3.7 mmol/L (3.5-5.1) Chloride Level 103 mmol/L (98-107) Carbon Dioxide Level 33 mmol/L (21-32) Anion Gap 5 (6-14) Blood Urea Nitrogen 15 mg/dL (7-20) Creatinine 0.7 mg/dL (0.6-1.0) Estimated GFR (Cockcroft-Gault) 85.9 BUN/Creatinine Ratio 21 (6-20) Glucose Level 110 mg/dL (70-99) Calcium Level 8.4 mg/dL (8.5-10.1) Total Bilirubin 0.5 mg/dL (0.2-1.0) Aspartate Amino Transf (AST/SGOT) 20 U/L (15-37) Alanine Aminotransferase (ALT/SGPT) 24 U/L (14-59) Alkaline Phosphatase 63 U/L (46-116) Total Protein 6.3 g/dL (6.4-8.2) Albumin 3.0 g/dL (3.4-5.0) Albumin/Globulin Ratio 0.9 (1.0-1.7) Laboratory Tests Test 12/11/16 23:30 12/12/16 07:00 12/12/16 13:01 Hemoglobin 8.7 g/dL (12.0-15.5) 8.5 g/dL (12.0-15.5) Hematocrit 26.0 % (36.0-47.0) 25.8 % (36.0-47.0) Mean Corpuscular Hemoglobin Concent 34 g/dL (31-37) 33 g/dL (31-37) White Blood Count 8.6 x10^3/uL (4.0-11.0) Red Blood Count 2.95 x10^6/uL (3.50-5.40) Mean Corpuscular Volume 87 fL (79-100) Mean Corpuscular Hemoglobin 29 pg (25-35) Red Cell Distribution Width 14.3 % (11.5-14.5) Platelet Count 153 x10^3/uL (140-400) Neutrophils (%) (Auto) 66 % (31-73) Lymphocytes (%) (Auto) 24 % (24-48) Monocytes (%) (Auto) 7 % (0-9) Eosinophils (%) (Auto) 2 % (0-3) Basophils (%) (Auto) 1 % (0-3) Neutrophils # (Auto) 5.7 x10^3uL (1.8-7.7) Lymphocytes # (Auto) 2.1 x10^3/uL (1.0-4.8) Monocytes # (Auto) 0.6 x10^3/uL (0.0-1.1) Eosinophils # (Auto) 0.2 x10^3/uL (0.0-0.7) Basophils # (Auto) 0.0 x10^3/uL (0.0-0.2) Sodium Level 141 mmol/L (136-145) 141 mmol/L (136-145) Potassium Level 3.8 mmol/L (3.5-5.1) 3.7 mmol/L (3.5-5.1) Chloride Level 104 mmol/L (98-107) 103 mmol/L (98-107) Carbon Dioxide Level 31 mmol/L (21-32) 33 mmol/L (21-32) Anion Gap 6 (6-14) 5 (6-14) Blood Urea Nitrogen 14 mg/dL (7-20) 15 mg/dL (7-20) Creatinine 0.8 mg/dL (0.6-1.0) 0.7 mg/dL (0.6-1.0) Estimated GFR (Cockcroft-Gault) 73.7 85.9 Glucose Level 99 mg/dL (70-99) 110 mg/dL (70-99) Calcium Level 8.4 mg/dL (8.5-10.1) 8.4 mg/dL (8.5-10.1) BUN/Creatinine Ratio 21 (6-20) Total Bilirubin 0.5 mg/dL (0.2-1.0) Aspartate Amino Transf (AST/SGOT) 20 U/L (15-37) Alanine Aminotransferase (ALT/SGPT) 24 U/L (14-59) Alkaline Phosphatase 63 U/L (46-116) Total Protein 6.3 g/dL (6.4-8.2) Albumin 3.0 g/dL (3.4-5.0) Albumin/Globulin Ratio 0.9 (1.0-1.7) Problem List Problems Medical Problems: (1) Abdominal pain Status: Acute Assessment/Plan A: Abd hematoma with no expansion s/p transfusion 2 Units PRBC's Abnml heart rate P: Transfer to telemetry floor and Cardiology consult. Problems: BEBO HUGHES Jr, MD Dec 12, 2016 18:20
[2016-12-12 19:35] VITALS: BP 107/47
[2016-12-12] MEDS: rOPINIRole 1 MG TABLET. PO SCH (20:54)
[2016-12-12] MEDS: ATORVASTATIN CALCIUM 20 MG TABLET PO SCH (20:56)
[2016-12-12] MEDS ORDERED: DOCUSATE SODIUM 100 MG CAPSULE. PO SCH (21:00)
[2016-12-12 22:45] VITALS: BP 108/57
[2016-12-13 02:45] VITALS: BP 109/44
[2016-12-13] MEDS: oxyCODONE/APAP 5/325 1 TAB TABLET PO PRN ×2 (02:59→16:18)
[2016-12-13 07:00] VITALS: BP 136/96
[2016-12-13] MEDS: PANTOPRAZOLE 40 MG TABLET.DR. PO SCH (08:12)
[2016-12-13] MEDS: IBUPROFEN 800 MG TABLET. PO PRN ×2 (08:12→21:09)
[2016-12-13] MEDS: LEVOTHYROXINE 75 MCG TABLET PO SCH (08:13)
[2016-12-13] MEDS: MELOXICAM 7.5 MG TABLET PO SCH (08:51)
[2016-12-13] MEDS: DULoxetine HCL 30 MG CAPSULE.DR PO SCH (08:51)
[2016-12-13] MEDS: DOCUSATE SODIUM 100 MG CAPSULE. PO SCH ×2 (08:51→21:08)
[2016-12-13] MEDS: MONTELUKAST SODIUM 10 MG TABLET. PO SCH (08:51)
[2016-12-13] MEDS: LIOTHYRONINE 5 MCG TABLET. PO SCH (08:52)
[2016-12-13] MEDS: rOPINIRole 1 MG TABLET. PO SCH ×4 (08:52→21:08)
[2016-12-13 11:00] VITALS: BP 122/38
--- NOTE | 2016-12-13 11:54 | PDOC2 ---
IVANNA NARAYAN [facility] [employer] 12/13/16 1154: CARDIAC CONSULT DATE OF CONSULT Date of Consult DATE: 12/13/16 TIME: 11:50 REASON FOR CONSULT Reason for Consult: Irregular heart beat REFERRING PHYSICIAN Referring Physician: Dr. Fisher SOURCE Source: Chart review, Patient HISTORY OF PRESENT ILLNESS HISTORY OF PRESENT ILLNESS This is a 56 yo female, who recently underwent transvaginal hysterectomy and bilateral oophorectomy and bladder sling, who presented secondary to leakage of urine and abdominal pain. Patient noted with irregular heart rhythm, which prompted this consult. PAST MEDICAL HISTORY Cardiovascular: Hyperlipidemia Pulmonary: No pertinent hx GI: No pertinent hx Heme/Onc: No pertinent hx Hepatobiliary: No pertinent hx Psych: No pertinent hx Musculoskeletal: Osteoarthritis ENT: No pertinent hx Renal/: No pertinent hx Endocrine: Hypothyroidism Dermatology: No pertinent hx PAST SURGICAL HISTORY Past Surgical History: Hysterectomy, Other (SSF, Bladder sling and A&P repair, tubal ) FAMILY HISTORY Family History: Cancer (breast), Diabetes SOCIAL HISTORY Smoke: No ALCOHOL: none Drugs: None Lives: with Family CURRENT MEDICATIONS CURRENT MEDICATIONS Current Medications Medications (Trade) Dose Ordered Sig/Regis Route PRN Reason Start Time Stop Time Status Last Admin Dose Admin Iohexol (Omnipaque 300 Mg/ml) 75 ml 1X ONCE IV 12/12/16 13:30 12/12/16 13:31 DC 12/12/16 14:44 Iohexol (Omnipaque 240 Mg/ml) 50 ml 1X ONCE PO 12/12/16 13:30 12/12/16 13:31 DC 12/12/16 14:45 Atorvastatin Calcium (Lipitor) 20 mg QHS PO 12/12/16 21:00 12/12/16 20:56 Duloxetine HCl (Cymbalta) 30 mg DAILY PO 12/13/16 09:00 12/13/16 08:51 Levothyroxine Sodium (Synthroid) 75 mcg DAILYAC PO 12/13/16 07:30 12/13/16 08:13 Montelukast Sodium (Singulair) 10 mg DAILY PO 12/13/16 09:00 12/13/16 08:51 Ropinirole HCl (Requip) 1 mg TID PO 12/12/16 21:00 12/13/16 09:58 Pantoprazole Sodium (Protonix) 40 mg DAILYAC PO 12/13/16 07:30 12/13/16 08:12 Liothyronine Sodium (Cytomel) 10 mcg DAILY PO 12/13/16 09:00 12/13/16 08:52 Meloxicam (Mobic) 15 mg DAILY PO 12/13/16 09:00 12/13/16 08:51 ALLERGIES ALLERGIES: Coded Allergies: Sulfa (Sulfonamide Antibiotics) (Verified Allergy, Intermediate, Hives, ) ROS Review of System 14 point ROS conducted with pertinent positives noted above in HPI. PHYSICAL EXAM General: Alert, Oriented X3, Cooperative, No acute distress HEENT: Atraumatic, Mucous membr. moist/pink Lungs: Clear to auscultation Heart: Regular rate, Normal S1, Normal S2, No murmurs, Other (tele : SR with PAC's ) Abdomen: Other (diffuse tenderness ) Extremities: No edema, Normal pulses Skin: No significant lesion Neuro: Normal speech, Sensation intact Psych/Mental Status: Mental status NL, Mood NL MUSCULOSKELETAL: Osteoarthritic changes both hands VITALS VITALS Vital Signs Date Time Temp Pulse Resp B/P (MAP) Pulse Ox O2 Delivery O2 Flow Rate FiO2 12/13/16 08:00 Room Air 12/13/16 07:00 97.5 93 18 136/96 (109) 94 97.5 12/12/16 15:30 2.0 LABS Lab: Laboratory Tests Test 12/12/16 13:01 Sodium Level 141 mmol/L (136-145) Potassium Level 3.7 mmol/L (3.5-5.1) Chloride Level 103 mmol/L (98-107) Carbon Dioxide Level 33 mmol/L (21-32) Anion Gap 5 (6-14) Blood Urea Nitrogen 15 mg/dL (7-20) Creatinine 0.7 mg/dL (0.6-1.0) Estimated GFR (Cockcroft-Gault) 85.9 BUN/Creatinine Ratio 21 (6-20) Glucose Level 110 mg/dL (70-99) Calcium Level 8.4 mg/dL (8.5-10.1) Total Bilirubin 0.5 mg/dL (0.2-1.0) Aspartate Amino Transf (AST/SGOT) 20 U/L (15-37) Alanine Aminotransferase (ALT/SGPT) 24 U/L (14-59) Alkaline Phosphatase 63 U/L (46-116) Total Protein 6.3 g/dL (6.4-8.2) Albumin 3.0 g/dL (3.4-5.0) Albumin/Globulin Ratio 0.9 (1.0-1.7) ASSESSMENT/PLAN ASSESSMENT/PLAN 1. Sinus arrhythmia 2. Abdominal pain s/p recent hysterectomy, bilateral oophorectomy, bladder sling, sacrospinous fixation, and anterior and posterior colporrhaphy with post op hematoma Recommendations Telemetry revealed no significant dysrhythmia. Is having occasional, benign PAC' s. Continue supportive care. No further cardiac workup warranted. May transfer off CVC If patient develops palpitations, could consider outpatient event monitoring. Problems: MCKAY TODD MD 12/13/16 1613: CARDIAC CONSULT ALLERGIES ALLERGIES: Coded Allergies: Sulfa (Sulfonamide Antibiotics) (Verified Allergy, Intermediate, Hives, ) ASSESSMENT/PLAN ASSESSMENT/PLAN Patient seen and examined. Agree with above nurse practitioner note. 56-year-old woman presenting with bleeding after abdominal surgery. Telemetry and cardiac exam are unremarkable thus far. Supportive care from a cardiac standpoint. Follow-up on an outpatient basis when necessary if she has symptoms. Problems: IVANNA NARAYAN APRN Dec 13, 2016 11:54 MCKAY TODD MD Dec 13, 2016 16:13
[2016-12-13] MEDS: ONDANSETRON ODT 4 MG TAB.RAPDIS. PO PRN ×2 (12:36→21:07)
--- NOTE | 2016-12-13 13:31 | PDOC ---
SURGICAL PROGRESS NOTE Subjective Pt. reports fatigue. Telemetry was negative during last 24-48 hours. No changes on repeat CT scan. Pt. with stable abd hematoma. Vital Signs Vital Signs Date Time Temp Pulse Resp B/P (MAP) Pulse Ox O2 Delivery O2 Flow Rate FiO2 12/13/16 11:00 98.4 81 18 122/38 (66) 94 Room Air 98.4 12/12/16 15:30 2.0 I&O Intake and Output 12/13/16 07:00 Intake Total 240 ml Output Total 950 ml Balance -710 ml Intake Oral 240 ml Output Urine Total 950 ml PATIENT HAS A PACE: Yes General: Alert, Cooperative, No acute distress HEENT: Atraumatic Lungs: Clear to auscultation Heart: Regular rate Abdomen: Normal bowel sounds, Soft, No tenderness, No masses Psych/Mental Status: Mental status NL Labs Laboratory Tests Test 12/11/16 23:30 12/12/16 07:00 12/12/16 13:01 Hemoglobin 8.7 g/dL (12.0-15.5) 8.5 g/dL (12.0-15.5) Hematocrit 26.0 % (36.0-47.0) 25.8 % (36.0-47.0) Mean Corpuscular Hemoglobin Concent 34 g/dL (31-37) 33 g/dL (31-37) White Blood Count 8.6 x10^3/uL (4.0-11.0) Red Blood Count 2.95 x10^6/uL (3.50-5.40) Mean Corpuscular Volume 87 fL (79-100) Mean Corpuscular Hemoglobin 29 pg (25-35) Red Cell Distribution Width 14.3 % (11.5-14.5) Platelet Count 153 x10^3/uL (140-400) Neutrophils (%) (Auto) 66 % (31-73) Lymphocytes (%) (Auto) 24 % (24-48) Monocytes (%) (Auto) 7 % (0-9) Eosinophils (%) (Auto) 2 % (0-3) Basophils (%) (Auto) 1 % (0-3) Neutrophils # (Auto) 5.7 x10^3uL (1.8-7.7) Lymphocytes # (Auto) 2.1 x10^3/uL (1.0-4.8) Monocytes # (Auto) 0.6 x10^3/uL (0.0-1.1) Eosinophils # (Auto) 0.2 x10^3/uL (0.0-0.7) Basophils # (Auto) 0.0 x10^3/uL (0.0-0.2) Sodium Level 141 mmol/L (136-145) 141 mmol/L (136-145) Potassium Level 3.8 mmol/L (3.5-5.1) 3.7 mmol/L (3.5-5.1) Chloride Level 104 mmol/L (98-107) 103 mmol/L (98-107) Carbon Dioxide Level 31 mmol/L (21-32) 33 mmol/L (21-32) Anion Gap 6 (6-14) 5 (6-14) Blood Urea Nitrogen 14 mg/dL (7-20) 15 mg/dL (7-20) Creatinine 0.8 mg/dL (0.6-1.0) 0.7 mg/dL (0.6-1.0) Estimated GFR (Cockcroft-Gault) 73.7 85.9 Glucose Level 99 mg/dL (70-99) 110 mg/dL (70-99) Calcium Level 8.4 mg/dL (8.5-10.1) 8.4 mg/dL (8.5-10.1) BUN/Creatinine Ratio 21 (6-20) Total Bilirubin 0.5 mg/dL (0.2-1.0) Aspartate Amino Transf (AST/SGOT) 20 U/L (15-37) Alanine Aminotransferase (ALT/SGPT) 24 U/L (14-59) Alkaline Phosphatase 63 U/L (46-116) Total Protein 6.3 g/dL (6.4-8.2) Albumin 3.0 g/dL (3.4-5.0) Albumin/Globulin Ratio 0.9 (1.0-1.7) Problem List Problems Medical Problems: (1) Abdominal pain Status: Acute Assessment/Plan A: ABd hematoma: stable P: Transfer back to 3rd floor for pain management and rehydration. Encourage ambulation. Anticipate d/c home tomorrow. Problems: BEBO HUGHES Jr, MD Dec 13, 2016 13:31
[2016-12-13 14:22] VITALS: BP 120/68
[2016-12-13 19:31] VITALS: BP 119/67
[2016-12-13] MEDS: ATORVASTATIN CALCIUM 20 MG TABLET PO SCH (21:08)
[2016-12-14] MEDS: oxyCODONE/APAP 5/325 1 TAB TABLET PO PRN (01:50)
[2016-12-14] MEDS: PANTOPRAZOLE 40 MG TABLET.DR. PO SCH (06:40)
[2016-12-14] MEDS: LEVOTHYROXINE 75 MCG TABLET PO SCH (06:40)
[2016-12-14] MEDS: IBUPROFEN 800 MG TABLET. PO PRN ×2 (06:41→16:33)
[2016-12-14 06:50] VITALS: BP 124/77
[2016-12-14] MEDS: MONTELUKAST SODIUM 10 MG TABLET. PO SCH (08:12)
[2016-12-14] MEDS: DULoxetine HCL 30 MG CAPSULE.DR PO SCH ×2 (08:12→08:44)
[2016-12-14] MEDS: rOPINIRole 1 MG TABLET. PO SCH (08:13)
[2016-12-14] MEDS: MELOXICAM 7.5 MG TABLET PO SCH (08:45)
[2016-12-14] MEDS: ONDANSETRON ODT 4 MG TAB.RAPDIS. PO PRN (08:50)
[2016-12-14] MEDS ORDERED: METOCLOPRAMIDE HCL 10 MG/2 ML VIAL. IV PRN (11:45)
[2016-12-14] MEDS: LIOTHYRONINE 5 MCG TABLET. PO SCH (12:57)
--- NOTE | 2016-12-14 13:03 | PDOC ---
SURGICAL PROGRESS NOTE Subjective Pt. feeling better. Pain improved. She had nausea this am but feeing better. Vital Signs Vital Signs Date Time Temp Pulse Resp B/P (MAP) Pulse Ox O2 Delivery O2 Flow Rate FiO2 12/14/16 06:50 98.2 74 18 124/77 (93) 96 Room Air 98.2 I&O Intake and Output 12/14/16 07:00 Intake Total 920 ml Output Total 1000 ml Balance -80 ml Intake Oral 920 ml Output Urine Total 1000 ml PATIENT HAS A SHEETS: Yes General: Alert, Oriented X3, Cooperative HEENT: Mucous membr. moist/pink Lungs: Clear to auscultation, Normal air movement Heart: Regular rate, Normal S1, Normal S2, No murmurs Abdomen: Normal bowel sounds, Soft, No tenderness, No hepatosplenomegaly, No masses Extremities: No clubbing, No cyanosis, No edema, Normal pulses, No tenderness/ swelling Skin: No rashes, No breakdown, No significant lesion Neuro: Normal gait, Normal speech, Strength at 5/5 X4 ext, Normal tone, Sensation intact, Reflexes 2+ Psych/Mental Status: Mental status NL, Mood NL Labs Laboratory Tests Test 12/13/16 14:35 Magnesium Level 2.2 mg/dL (1.8-2.4) Thyroid Stimulating Hormone (TSH) 1.244 uIU/mL (0.358-3.74) Laboratory Tests Test 12/13/16 14:35 Magnesium Level 2.2 mg/dL (1.8-2.4) Thyroid Stimulating Hormone (TSH) 1.244 uIU/mL (0.358-3.74) Problem List Problems Medical Problems: (1) Abdominal pain Status: Acute Assessment/Plan A: ABd hematoma: stable P: D/c home with sheets cath. F/u in 1 week. Problems: BEBO HUGHES Jr, MD Dec 14, 2016 13:03
--- NOTE | 2016-12-14 13:04 | DISCH ---
DISCHARGE INSTRUCTIONS Condition on Discharge Condition on Discharge: Stable Activity After Discharge Activity Instructions for Disc: Activity as tolerated Lifting Instructions after Dis: No heavy lifting Driving Instructions after Dis: Do not drive today Diet after Discharge Diet after Discharge: Regular Contacting the [facility] after DC Call your doctor for: Concerns you may have Follow-Up Follow up with: Dr. Fisher in 1 week for evaluation and sheets cath removal. BEBO FISHER Jr, MD Dec 14, 2016 13:04
[2016-12-14 17:18] VITALS: BP 108/48
== END 2016-12-14 18:31 | disposition home or self-care (01) ==
LOC: ER 11:35 → 3 NORTH 12:54 → 2 NORTH 12-12 19:45 → 3 NORTH 12-13 13:24
PROVIDERS: ADMIT Obstetrics & Gynecology; ATTEND Obstetrics & Gynecology
DX: D62 Acute posthemorrhagic anemia (principal); K91.870 Postprocedural hematoma of a digestive system organ or structure following a digestive system procedure; I49.9 Cardiac arrhythmia, unspecified; E78.5 Hyperlipidemia, unspecified; E03.9 Hypothyroidism, unspecified; M19.042 Primary osteoarthritis, left hand; M19.041 Primary osteoarthritis, right hand; Y83.8 Other surgical procedures as the cause of abnormal reaction of the patient, or of later complication, without mention of misadventure at the time of the procedure; Z83.3 Family history of diabetes mellitus; Z80.3 Family history of malignant neoplasm of breast
CPT/HCPCS: 36415; 36430; 71010; 74177; 80048; 80053; 81001; 83735; 84443; 85014; 85018; 85025; 85610; 85730; 86850; 86900; 86901; 86920; 87086; 93005; 96372; 96374; 96375; 96376; 99285; G0378; J1170; J2270; J2405; J2765; P9016; Q0162; Q9966; Q9967; G0379

== ENCOUNTER 2016-12-20 19:24 | Inpatient (IN) | payer OTHER ==
[~2016-12-20] VITALS: Ht 180.3 cm; Wt 122.6 kg
[2016-12-20 20:38] LABS: BASO % 0 % (0-3); EOS % 1 % (0-3); HEMATOCRIT 34.6 % (36.0-47.0); HEMOGLOBIN 11.2 g/dL (12.0-15.5); LYMPH # 1.2 x10^3/uL (1.0-4.8); LYMPH % 6 % (24-48); MEAN CORPUSCULAR HEMOGLOBIN 29 pg (25-35); MEAN CORPUSCULAR HGB CONC 32 g/dL (31-37); MEAN CORPUSCULAR VOLUME 89 fL (79-100); MONO % 4 % (0-9); NEUT % 89 % (31-73); PLATELET COUNT 256 x10^3/uL (140-400); RED BLOOD COUNT 3.88 x10^6/uL (3.50-5.40); RED CELL DISTRIBUTION WIDTH 15.6 % (11.5-14.5); WHITE BLOOD COUNT 18.6 x10^3/uL (4.0-11.0)
[2016-12-20 20:40] LABS: BILIRUBIN,URINE NEGATIVE (NEG); GLUCOSE,URINE NEGATIVE (NEG); NITRITE,URINE NEGATIVE (NEG); PH,URINE 5.5; PROTEIN,URINE NEGATIVE (NEG-TRACE); UROBILINOGEN,URINE 0.2 mg/dL (0.2 mg/dL)
[2016-12-20] MEDS ORDERED: IV NORMAL SALINE 1000ML BAG 1,000 ML IV ONE (20:45)
[2016-12-20] MEDS ORDERED: ONDANSETRON PF 4 MG/2 ML VIAL. IV ONE (20:45)
[2016-12-20] MEDS ORDERED: HYDROmorphone 2 MG/ML VIAL IV ONE (20:45)
[2016-12-20 20:52] LABS: CALCIUM 8.9 mg/dL (8.5-10.1); CREATININE 0.8 mg/dL (0.6-1.0); GFR 73.7
[2016-12-20 20:59] LABS: ALBUMIN 3.9 g/dL (3.4-5.0); TOTAL BILIRUBIN 0.8 mg/dL (0.2-1.0); TOTAL PROTEIN 7.8 g/dL (6.4-8.2)
[2016-12-20 21:00] LABS: BACTERIA,URINE MODERATE /HPF (0-FEW); SQUAMOUS EPITHELIAL CELL,UR OCC /LPF
[2016-12-20] MEDS ORDERED: IOHEXOL 300 MG/ML 75 ML VIAL IV ONE (21:00)
[2016-12-20] MEDS ORDERED: CONTRAST GIVEN MC PRN (21:15)
--- NOTE | 2016-12-20 21:40 | RAD ---
EXAM: Abdomen and pelvis CT with intravenous contrast. HISTORY: Pain status post total abdominal hysterectomy and bladder sling surgery. TECHNIQUE: Computed tomographic images of the abdomen and pelvis were obtained following the administration of 75 cc Omnipaque 300 intravenous contrast. Multiplanar reformatting was performed. *One or more of the following individualized dose reduction techniques were utilized for this examination: 1. Automated exposure control. 2. Adjustment of the mA and/or kV according to patient size. 3. Use of iterative reconstruction technique. COMPARISON: 12/12/2016. FINDINGS: Evaluation of the lower thorax demonstrates right middle lobe pleural parenchymal scarring. Redemonstrated small right pleural effusion and right greater than left basilar atelectasis has resolved. There are small hypodense lesions within the liver, the largest of which measures 1 cm within the right hepatic lobe. The gallbladder is surgically absent. There is common bile duct dilatation likely due to reservoir effect status post cholecystectomy. The pancreas, spleen, adrenal glands and kidneys are unremarkable. There is no evidence of bowel obstruction. There is sigmoid diverticulosis without diverticulitis. There is a heterogeneous slightly hyperdense fluid collection within the pelvis measuring approximate 8.6 cm transversely by 8.2 cm craniocaudally by 5.5 cm anterior posteriorly, the attenuation which favors blood products. There is a second collection extending cephalad into the left adnexal region, measuring 5.0 cm in maximum dimension. There is surrounding stranding. There is a Orlando catheter within a decompressed urinary bladder. The uterus is surgically absent. No pathologically enlarged lymph node is seen. There is a small fat-containing umbilical hernia. There are degenerative changes involving the lower lumbar spine. IMPRESSION: 1. 8.6 cm complex fluid collection within the midline pelvis with smaller complex fluid collection extending superiorly into the left adnexa. Given a history of recent pelvic surgery, these are likely due to hematomas. The possibility of superimposed infected fluid collection is not excluded. The pelvic collection is similar compared to the prior study and the left adnexal collection is decreased compared to the prior study. The possibility of adjacent bladder injury is difficult to assess given bladder decompression from a Orlando catheter. 2. Sigmoid diverticulosis. 3. Small hypodense lesions within the liver. In the absence of known malignancy, these are likely cysts or hemangiomas. 4. Resolution of previously demonstrated bilateral lower lobe atelectasis and a small right pleural effusion. Electronically signed by: Corrie Purvis MD (12/20/2016 9:37 PM) [facility]
--- NOTE | 2016-12-20 22:32 | PHYS DOC ---
Past Medical History Past Medical History: Arthritis, Asthma, GERD, High Cholesterol, Hypothyroid Additional Past Medical Histor: RLS, SLEEP APNEA Past Surgical History: Cholecystectomy, Hysterectomy, Tubal ligation Alcohol Use: None Drug Use: None Adult General Chief Complaint Chief Complaint: ABDOMINAL PAIN HPI HPI Patient is a 56 year old email who presents with 2 day history of progressive lower moderate in severity abdominal pain, no nausea or vomiting, some constipation but did have a bowel movement earlier; recent total abdominal hysterectomy and bladder sling done within the last 2 weeks followed by readmission for UTI and pelvic hematoma that was discovered on CT scan. She currently has an indwelling Orlando catheter and thought maybe she had a UTI was started on Levaquin yesterday took one dose and that resulted in palpitations throughout the night so she has not taken second dose. Denies fevers. Review of Systems Review of Systems Constitutional: Denies fever or chills [] Eyes: Denies change in visual acuity, redness, or eye pain [] HENT: Denies nasal congestion or sore throat [] Respiratory: Denies cough or shortness of breath [] Cardiovascular: No additional information not addressed in HPI [] GI: Denies abdominal pain, nausea, vomiting, bloody stools or diarrhea [] : Denies dysuria or hematuria [] Musculoskeletal: Denies back pain or joint pain [] Integument: Denies rash or skin lesions [] Neurologic: Denies headache, focal weakness or sensory changes [] Endocrine: Denies polyuria or polydipsia [] Current Medications Current Medications Current Medications Medications (Trade) Dose Ordered Sig/Regis Start Time Stop Time Status Last Admin Dose Admin Hydromorphone HCl (Dilaudid) 0.5 mg 1X ONCE 12/20/16 20:45 12/20/16 20:48 DC 12/20/16 21:02 0.5 MG Info (Do NOT chart on this entry -- for MONITORING) 1 each PRN DAILY PRN 12/20/16 21:15 12/22/16 21:14 Iohexol (Omnipaque 300 Mg/ml) 75 ml 1X ONCE 12/20/16 21:00 12/20/16 21:03 DC 12/20/16 21:15 75 ML Ondansetron HCl (Zofran) 4 mg 1X ONCE 12/20/16 20:45 12/20/16 20:48 DC 12/20/16 21:01 4 MG Sodium Chloride 1,000 ml @ 1,000 mls/hr 1X ONCE 12/20/16 20:45 12/20/16 21:44 DC 12/20/16 21:01 1,000 MLS/HR Allergies Allergies Allergies Coded Allergies Type Severity Reaction Last Updated Verified Sulfa (Sulfonamide Antibiotics) Allergy Intermediate Hives 12/09/16 Yes Physical Exam Physical Exam Constitutional: Well developed, well nourished, no acute distress, non-toxic appearance. [] HENT: Normocephalic, atraumatic, bilateral external ears normal, oropharynx moist, no oral exudates, nose normal. [] Eyes: PERRLA, EOMI, conjunctiva normal, no discharge. [] Neck: Normal range of motion, no tenderness, supple, no stridor. [] Cardiovascular:Heart rate regular rhythm, no murmur [] Lungs & Thorax: Bilateral breath sounds clear to auscultation [] Abdomen: Bowel sounds normal, soft, no tenderness, no masses, no pulsatile masses. [] Skin: Warm, dry, no erythema, no rash. [] Back: No tenderness, no CVA tenderness. [] Extremities: No tenderness, no cyanosis, no clubbing, ROM intact, no edema. [] Neurologic: Alert and oriented X 3, normal motor function, normal sensory function, no focal deficits noted. [] Psychologic: Affect normal, judgement normal, mood normal. [] Current Patient Data Vital Signs Vital Signs Date Time Temp Pulse Resp B/P (MAP) Pulse Ox O2 Delivery O2 Flow Rate FiO2 12/20/16 21:30 96 129/59 (82) 93 Room Air 12/20/16 19:30 98.7 20 98.7 Lab Values Laboratory Tests Test 12/20/16 19:35 12/20/16 19:45 12/20/16 22:00 Urine Color Yellow Urine Clarity Clear Urine pH 5.5 Urine Specific [place] 1.020 Urine Protein Negative mg/dL (NEG-TRACE) Urine Glucose (UA) Negative mg/dL (NEG) Urine Ketones (Stick) Negative mg/dL (NEG) Urine Blood Large (NEG) Urine Nitrite Negative (NEG) Urine Bilirubin Negative (NEG) Urine Urobilinogen Dipstick 0.2 mg/dL (0.2 mg/dL) Urine Leukocyte Esterase Moderate (NEG) Urine RBC 3-5 /HPF (0-2) Urine WBC 1-4 /HPF (0-4) Urine Squamous Epithelial Cells Occ /LPF Urine Bacteria Moderate /HPF (0-FEW) Urine Mucus Mod /LPF White Blood Count 18.6 x10^3/uL (4.0-11.0) H Red Blood Count 3.88 x10^6/uL (3.50-5.40) Hemoglobin 11.2 g/dL (12.0-15.5) L Hematocrit 34.6 % (36.0-47.0) L Mean Corpuscular Volume 89 fL (79-100) Mean Corpuscular Hemoglobin 29 pg (25-35) Mean Corpuscular Hemoglobin Concent 32 g/dL (31-37) Red Cell Distribution Width 15.6 % (11.5-14.5) H Platelet Count 256 x10^3/uL (140-400) Neutrophils (%) (Auto) 89 % (31-73) H Lymphocytes (%) (Auto) 6 % (24-48) L Monocytes (%) (Auto) 4 % (0-9) Eosinophils (%) (Auto) 1 % (0-3) Basophils (%) (Auto) 0 % (0-3) Neutrophils # (Auto) 16.5 x10^3uL (1.8-7.7) H Lymphocytes # (Auto) 1.2 x10^3/uL (1.0-4.8) Monocytes # (Auto) 0.7 x10^3/uL (0.0-1.1) Eosinophils # (Auto) 0.1 x10^3/uL (0.0-0.7) Basophils # (Auto) 0.0 x10^3/uL (0.0-0.2) Platelet Estimate Pending Sodium Level 139 mmol/L (136-145) Potassium Level 4.0 mmol/L (3.5-5.1) Chloride Level 102 mmol/L (98-107) Carbon Dioxide Level 27 mmol/L (21-32) Anion Gap 10 (6-14) Blood Urea Nitrogen 14 mg/dL (7-20) Creatinine 0.8 mg/dL (0.6-1.0) Estimated GFR (Cockcroft-Gault) 73.7 BUN/Creatinine Ratio 18 (6-20) Glucose Level 117 mg/dL (70-99) H Calcium Level 8.9 mg/dL (8.5-10.1) Total Bilirubin 0.8 mg/dL (0.2-1.0) Aspartate Amino Transferase (AST) 14 U/L (15-37) L Alanine Aminotransferase (ALT) 26 U/L (14-59) Alkaline Phosphatase 88 U/L (46-116) Total Protein 7.8 g/dL (6.4-8.2) Albumin 3.9 g/dL (3.4-5.0) Albumin/Globulin Ratio 1.0 (1.0-1.7) Lipase 198 U/L (73-393) Lactic Acid Level 1.4 mmol/L (0.4-2.0) Laboratory Tests 12/20/16 19:45 Laboratory Tests 12/20/16 19:45 EKG EKG [] Radiology/Procedures Radiology/Procedures CT abdomen and pelvis per the radiology report patient has 2 fluid collections in the pelvis most consistent with hematoma however infection can't be excluded the size of the fluid collections have not increased. [] Course & Med Decision Making Course & Med Decision Making Pertinent Labs and Imaging studies reviewed. (See chart for details) White blood cell count 18,000, urine looks dirty, CT scan shows 2 fairly decent sized fluid collections in the pelvis radiologist felt was still consistent with hematoma but of course cannot completely exclude infection this is per the radiology report [\ A she responded very well to pain meds given IV fluids and IV Rocephin. Discussed case with and Dr Armstrong (agrees to admit).] Dragon Disclaimer Dragon Disclaimer This electronic medical record was generated, in whole or in part, using a voice recognition dictation system. Departure Departure Impression: Primary Impression: UTI (urinary tract infection) Additional Impressions: Leukocytosis Pelvic fluid collection Disposition: 01 HOME, SELF-CARE Condition: STABLE Referrals: SHUN DURAN MD (PCP) Problem Qualifiers ANKITA GARY MD Dec 20, 2016 22:32
[2016-12-20] MEDS ORDERED: MORPHINE SULFATE 4 MG/ML DISP.SYRIN. IV PRN (22:45)
[2016-12-20] MEDS ORDERED: ONDANSETRON PF 4 MG/2 ML VIAL. IV PRN (22:45)
[2016-12-20] MEDS ORDERED: IV NORMAL SALINE 1000ML BAG 1,000 ML IV SCH (22:45)
[2016-12-20 23:29] LABS: % EOS 3 % (0-5); PLT ESTIMATE ADEQUATE (ADEQUATE)
[2016-12-20 23:45] VITALS: BP 108/65
[2016-12-21] MEDS: IBUPROFEN 800 MG TABLET. PO PRN ×3 (01:09→17:54)
--- NOTE | 2016-12-21 03:25 | ACF ---
Admission Forms Criteria URINARY COMPLICATIONS (Place 'X' for any and all applicable criteria): Ongoing inpatient care may be needed for Urinary complications with 1 or more of the following: [ ]I. Reduced urine output (eg, despite adequate hydration) [ ]II. Renal failure. (Also use Renal Failure: Common Complications and Conditions as appropriate) [ ]III. Urinary retention requiring drainage or surgery(19)(20)(21)(33)(34) [ ]IV. Postobstructive diuresis requiring close monitoring of urine output and intravenous compensation for excessive fluid losses(35) [X]V. Urinary tract infection requiring inpatient care as indicated by ANY ONE of the following(8)(19)(20): [ ]a) Hemodynamic instability [ ]b) Severe symptoms (eg, high fever, severe pain) [ ]c) Vomiting or dehydration requiring ongoing inpatient care [X]d) IV antibiotic needs that cannot be managed at lower level of care [ ]e) Obstruction of collecting system by stone or tumor Extended stay beyond goal length of stay for primary condition may be needed until ALL of the following are present(3)(4)(5)(8): [ ]a) Renal function (creatinine) at baseline, or daily decreases in creatinine consistent with renal function return [ ]b) Voiding adequately or with urinary catheter or percutaneous suprapubic tube and management regimen in place that is performable at lower level of care. [ ]c) Urine output adequate [ ]d) Fever absent or resolving [ ]e) Infection absent or treatable at next level of care The original [employer] content created by [employer] has been revised. The portions of the content which have been revised are identified through the use of italic text, and [facility] [employer] has neither reviewed nor approved the modified material. All other unmodified content is copyright [email or web address] Please see references footnoted in the original [facility] edition 2014 Admission Criteria Met?: Yes VARSHA ZURITA Dec 21, 2016 03:25
[2016-12-21 04:56] VITALS: BP 108/60
[2016-12-21] MEDS: IV RINGERS,LACTATED 1000ML 1,000 ML IV SCH ×2 (05:01→13:05)
[2016-12-21] MEDS: ACETAMINOPHEN 500 MG TABLET PO PRN ×2 (05:07→16:06)
[2016-12-21 08:27] LABS: CALCIUM 8.6 mg/dL (8.5-10.1); CREATININE 0.8 mg/dL (0.6-1.0); GFR 73.7; POTASSIUM 3.7 mmol/L (3.5-5.1)
[2016-12-21] MEDS ORDERED: oxyCODONE/APAP 5/325 1 TAB TABLET PO PRN (08:30)
--- NOTE | 2016-12-21 08:30 | PDOC1 ---
History and Physical Date of Admission Date of Admission DATE: 12/21/16 TIME: 08:26 Identification/Chief Complaint Chief Complaint UTI Problems: Source Source: Patient History of Present Illness History of Present Illness 56 y/o almost 2 wks s/p TVH, BSO, A&P repair and bladder sling presented with suspicion for UTI. She reports foul smelling urine that is also dark and gritty. She has sheets cath in place from surgery. She had complications from surgery that involved post op hematoma that required blood transfusion. Past Medical History Cardiovascular: Hyperlipidemia Pulmonary: No pertinent hx GI: No pertinent hx Heme/Onc: No pertinent hx Hepatobiliary: No pertinent hx Psych: No pertinent hx Musculoskeletal: Osteoarthritis Renal/: No pertinent hx Endocrine: Hypothyroidism Past Surgical History Past Surgical History: Hysterectomy (TVH, BSO, A&P repari and bladder sling), Other Family History Family History: Cancer, Diabetes Social History ALCOHOL: none Drugs: None Current Problem List Problem List Problems Medical Problems: (1) Leukocytosis Status: Acute (2) Pelvic fluid collection Status: Acute (3) UTI (urinary tract infection) Status: Acute Problems: Current Medications Current Medications Current Medications Sodium Chloride 1,000 ml @ 1,000 mls/hr 1X ONCE IV Last administered on 21:01; Start 12/20/16 at 20:45; Stop 12/20/16 at 21:44; Status DC Hydromorphone HCl (Dilaudid) 0.5 mg 1X ONCE IV Last administered on 12/20/16 21:02; Start 12/20/16 at 20:45; Stop 12/20/16 at 20:48; Status DC Ondansetron HCl (Zofran) 4 mg 1X ONCE IV Last administered on 12/20/16 21:01 ; Start 12/20/16 at 20:45; Stop 12/20/16 at 20:48; Status DC Iohexol (Omnipaque 300 Mg/ml) 75 ml 1X ONCE IV Last administered on 12/20/16 21:15; Start 12/20/16 at 21:00; Stop 12/20/16 at 21:03; Status DC Info (Do NOT chart on this entry -- for MONITORING) 1 each PRN DAILY PRN MC SEE COMMENTS; Start 12/20/16 at 21:15; Stop 12/22/16 at 21:14 Ceftriaxone Sodium 50 ml @ 100 mls/hr 1X ONCE IV Last administered on 22:30; Start 12/20/16 at 22:30; Stop 12/20/16 at 22:59; Status DC Ondansetron HCl (Zofran) 4 mg PRN Q8HRS PRN IV NAUSEA/VOMITING; Start 12/20/16 at 22:45; Stop 12/21/16 at 22:44 Morphine Sulfate 4 mg PRN Q2HR PRN IV PAIN; Start 12/20/16 at 22:45; Stop 12/21 at 22:44 Sodium Chloride 1,000 ml @ 150 mls/hr Q6H40M IV Last administered on 22:45; Start 12/20/16 at 22:45; Stop 12/21/16 at 22:44 Ibuprofen (Motrin) 800 mg PRN Q8HRS PRN PO MILD PAIN / TEMP Last administered on 12/21/16 01:09; Start 12/21/16 at 00:30 Acetaminophen (Tylenol) 1,000 mg PRN Q4HRS PRN PO MILD PAIN / TEMP Last administered on 12/21/16 05:07; Start 12/21/16 at 00:30 Ceftriaxone Sodium 1 gm/ Sodium Chloride 50 ml @ 100 mls/hr Q24H IV ; Start at 22:00 Ringer's Solution 1,000 ml @ 150 mls/hr Q6H40M IV Last administered on 05:01; Start 12/21/16 at 00:30 Active Scripts Active Percocet 5-325 Mg Tablet (Oxycodone/Acetaminophen) 1 Each Tablet 1 Tab PO PRN Q6HRS PRN Ibuprofen 800 Mg Tablet 800 Mg PO PRN Q6HRS PRN Colace (Docusate Sodium) 100 Mg Capsule 100 Mg PO BID Reported Atorvastatin Calcium 20 Mg Tablet 20 Mg PO DAILY Montelukast Sodium Tablet (Montelukast Sodium) 10 Mg Tablet 10 Mg PO DAILY Liothyronine Sodium 25 Mcg Tablet 10 Mcg PO DAILY Cymbalta (Duloxetine Hcl) 30 Mg Capsule.dr 30 Mg PO DAILY Lansoprazole 30 Mg Capsule.dr 30 Mg PO DAILY Requip (Ropinirole Hcl) 1 Mg Tablet 1 Mg PO TID Meloxicam 15 Mg Tablet 15 Mg PO DAILY Levothyroxine Sodium 75 Mcg Tablet 75 Mcg PO DAILYAC Allergies Allergies: Coded Allergies: Sulfa (Sulfonamide Antibiotics) (Verified Allergy, Intermediate, Hives, ) ROS General: YES: Chills, Fatigue, Appetite, No: Night Sweats, Malaise, Other PSYCHOLOGICAL ROS: No: Anxiety, Behavioral Disorder, Concentration difficultie , Decreased libido, Depression, Disorientation, Hallucinations, Hostility, Irritablity, Memory difficulties, Mood Swings, Obsessive thoughts, Physical abuse, Sexual abuse, Sleep disturbances, Suicidal ideation, Other Eyes: No Blurry vision, No Decreased vision, No Double vision, No Dry eyes, No Excessive tearing, No Eye Pain, No Itchy Eyes, No Loss of vision, No Photophobia , No Scotomata, No Uses contacts, No Uses glasses, No Other HEENT: No: Heacaches, Visual Changes, Hearing change, Nasal congestion, Nasal discharge, Oral lesions, Sinus pain, Sore Throat, Epistaxis, Sneezing, Snoring, Tinnitus, Vertigo, Vocal changes, Other ALLERGY AND IMMUNOLOGY: No: Hives, Insect Bite Sensitivity, Itchy/Watery Eyes, Nasal Congestion, Post Nasal Drip, Seasonal Allergies, Other Hematological and Lymphatic: No: Bleeding Problems, Blood Clots, Blood Transfusions, Brusing, Night Sweats, Pallor, Swollen Lymph Nodes, Other ENDOCRINE: No: Breast Changes, Galactorrhea, Hair Pattern Changes, Hot Flashes , Malaise/lethargy, Mood Swings, Palpitations, Polydipsia/polyuria, Skin Changes , Temperature Intolerance, Unexpected Weight Changes, Other Breast: No New/Changing Breast Lumps, No Nipple changes, No Nipple discharge, No Other Respiratory: No: Cough, Hemoptysis, Orthopnea, Pleuritic Pain, Shortness of breath, SOB with excertion, Sputum Changes, Stridor, Tachypnea, Wheezing, Other Cardiovascular: No Chest Pain, No Palpitations, No Orthopnea, No Paroxysmal Noc. Dyspnea, No Edema, No Lt Headedness, No Other Gastrointestinal: Yes Abdominal Pain, No Nausea, No Vomiting, No Diarrhea, No Constipation, No Melena, No Hematochezia, No Other Genitourinary: No Dysuria, No Frequency, No Incontinence, No Hematuria, No Retention, No Discharge, No Urgency, No Pain, No Flank Pain, No Other, No , No , No , No , No , No , No Physical Exam General: Alert, Oriented X3, Cooperative HEENT: Atraumatic Lungs: Clear to auscultation Heart: S1S2 Cardiovascular: S1 Breasts: Normal Abdomen: Normal bowel sounds, Soft, No masses, Other (mild lower abd tenderness ) Psych/Mental Status: Mental status NL Vitals Vitals Vital Signs Date Time Temp Pulse Resp B/P (MAP) Pulse Ox O2 Delivery O2 Flow Rate FiO2 12/21/16 04:56 99.7 83 18 108/60 (76) 97 Room Air 99.7 Labs Labs Laboratory Tests Test 12/20/16 19:35 12/20/16 19:45 12/20/16 22:00 Urine Color Yellow Urine Clarity Clear Urine pH 5.5 Urine Specific [employer] 1.020 Urine Protein Negative mg/dL (NEG-TRACE) Urine Glucose (UA) Negative mg/dL (NEG) Urine Ketones (Stick) Negative mg/dL (NEG) Urine Blood Large (NEG) Urine Nitrite Negative (NEG) Urine Bilirubin Negative (NEG) Urine Urobilinogen Dipstick 0.2 mg/dL (0.2 mg/dL) Urine Leukocyte Esterase Moderate (NEG) Urine RBC 3-5 /HPF (0-2) Urine WBC 1-4 /HPF (0-4) Urine Squamous Epithelial Cells Occ /LPF Urine Bacteria Moderate /HPF (0-FEW) Urine Mucus Mod /LPF White Blood Count 18.6 x10^3/uL (4.0-11.0) Red Blood Count 3.88 x10^6/uL (3.50-5.40) Hemoglobin 11.2 g/dL (12.0-15.5) Hematocrit 34.6 % (36.0-47.0) Mean Corpuscular Volume 89 fL (79-100) Mean Corpuscular Hemoglobin 29 pg (25-35) Mean Corpuscular Hemoglobin Concent 32 g/dL (31-37) Red Cell Distribution Width 15.6 % (11.5-14.5) Platelet Count 256 x10^3/uL (140-400) Neutrophils (%) (Auto) 89 % (31-73) Lymphocytes (%) (Auto) 6 % (24-48) Monocytes (%) (Auto) 4 % (0-9) Eosinophils (%) (Auto) 1 % (0-3) Basophils (%) (Auto) 0 % (0-3) Neutrophils # (Auto) 16.5 x10^3uL (1.8-7.7) Lymphocytes # (Auto) 1.2 x10^3/uL (1.0-4.8) Monocytes # (Auto) 0.7 x10^3/uL (0.0-1.1) Eosinophils # (Auto) 0.1 x10^3/uL (0.0-0.7) Basophils # (Auto) 0.0 x10^3/uL (0.0-0.2) Segmented Neutrophils % 83 % (35-66) Lymphocytes % 8 % (24-48) Monocytes % 6 % (0-10) Eosinophils % 3 % (0-5) Platelet Estimate Adequate (ADEQUATE) Large Platelets Few Sodium Level 139 mmol/L (136-145) Potassium Level 4.0 mmol/L (3.5-5.1) Chloride Level 102 mmol/L (98-107) Carbon Dioxide Level 27 mmol/L (21-32) Anion Gap 10 (6-14) Blood Urea Nitrogen 14 mg/dL (7-20) Creatinine 0.8 mg/dL (0.6-1.0) Estimated GFR (Cockcroft-Gault) 73.7 BUN/Creatinine Ratio 18 (6-20) Glucose Level 117 mg/dL (70-99) Calcium Level 8.9 mg/dL (8.5-10.1) Total Bilirubin 0.8 mg/dL (0.2-1.0) Aspartate Amino Transf (AST/SGOT) 14 U/L (15-37) Alanine Aminotransferase (ALT/SGPT) 26 U/L (14-59) Alkaline Phosphatase 88 U/L (46-116) Total Protein 7.8 g/dL (6.4-8.2) Albumin 3.9 g/dL (3.4-5.0) Albumin/Globulin Ratio 1.0 (1.0-1.7) Lipase 198 U/L (73-393) Lactic Acid Level 1.4 mmol/L (0.4-2.0) Laboratory Tests Test 12/20/16 19:35 12/20/16 19:45 12/20/16 22:00 Urine Color Yellow Urine Clarity Clear Urine pH 5.5 Urine Specific [employer] 1.020 Urine Protein Negative mg/dL (NEG-TRACE) Urine Glucose (UA) Negative mg/dL (NEG) Urine Ketones (Stick) Negative mg/dL (NEG) Urine Blood Large (NEG) Urine Nitrite Negative (NEG) Urine Bilirubin Negative (NEG) Urine Urobilinogen Dipstick 0.2 mg/dL (0.2 mg/dL) Urine Leukocyte Esterase Moderate (NEG) Urine RBC 3-5 /HPF (0-2) Urine WBC 1-4 /HPF (0-4) Urine Squamous Epithelial Cells Occ /LPF Urine Bacteria Moderate /HPF (0-FEW) Urine Mucus Mod /LPF White Blood Count 18.6 x10^3/uL (4.0-11.0) Red Blood Count 3.88 x10^6/uL (3.50-5.40) Hemoglobin 11.2 g/dL (12.0-15.5) Hematocrit 34.6 % (36.0-47.0) Mean Corpuscular Volume 89 fL (79-100) Mean Corpuscular Hemoglobin 29 pg (25-35) Mean Corpuscular Hemoglobin Concent 32 g/dL (31-37) Red Cell Distribution Width 15.6 % (11.5-14.5) Platelet Count 256 x10^3/uL (140-400) Neutrophils (%) (Auto) 89 % (31-73) Lymphocytes (%) (Auto) 6 % (24-48) Monocytes (%) (Auto) 4 % (0-9) Eosinophils (%) (Auto) 1 % (0-3) Basophils (%) (Auto) 0 % (0-3) Neutrophils # (Auto) 16.5 x10^3uL (1.8-7.7) Lymphocytes # (Auto) 1.2 x10^3/uL (1.0-4.8) Monocytes # (Auto) 0.7 x10^3/uL (0.0-1.1) Eosinophils # (Auto) 0.1 x10^3/uL (0.0-0.7) Basophils # (Auto) 0.0 x10^3/uL (0.0-0.2) Segmented Neutrophils % 83 % (35-66) Lymphocytes % 8 % (24-48) Monocytes % 6 % (0-10) Eosinophils % 3 % (0-5) Platelet Estimate Adequate (ADEQUATE) Large Platelets Few Sodium Level 139 mmol/L (136-145) Potassium Level 4.0 mmol/L (3.5-5.1) Chloride Level 102 mmol/L (98-107) Carbon Dioxide Level 27 mmol/L (21-32) Anion Gap 10 (6-14) Blood Urea Nitrogen 14 mg/dL (7-20) Creatinine 0.8 mg/dL (0.6-1.0) Estimated GFR (Cockcroft-Gault) 73.7 BUN/Creatinine Ratio 18 (6-20) Glucose Level 117 mg/dL (70-99) Calcium Level 8.9 mg/dL (8.5-10.1) Total Bilirubin 0.8 mg/dL (0.2-1.0) Aspartate Amino Transf (AST/SGOT) 14 U/L (15-37) Alanine Aminotransferase (ALT/SGPT) 26 U/L (14-59) Alkaline Phosphatase 88 U/L (46-116) Total Protein 7.8 g/dL (6.4-8.2) Albumin 3.9 g/dL (3.4-5.0) Albumin/Globulin Ratio 1.0 (1.0-1.7) Lipase 198 U/L (73-393) Lactic Acid Level 1.4 mmol/L (0.4-2.0) VTE Prophylaxis Ordered VTE Prophylaxis Devices: No VTE Pharmacological Prophylaxi: No Assessment/Plan Assessment/Plan A: UTI: sheets in place P: Pt. started Levaquin as outpatient and reports chest palpitations and flushing. She is now on Rocephin for UTI. Will perform bladder challenge this afternoon prior to sheets cath removal. BEBO HUGHES Jr, MD Dec 21, 2016 08:30
[2016-12-21] MEDS ORDERED: IBUPROFEN 800 MG TABLET. PO PRN (08:45)
[2016-12-21 09:03] LABS: RED BLOOD COUNT 3.22 x10^6/uL (3.50-5.40); WHITE BLOOD COUNT 15.1 x10^3/uL (4.0-11.0)
[2016-12-21 09:04] LABS: BASO # 0.1 x10^3/uL (0.0-0.2); BASO % 1 % (0-3); EOS % 0 % (0-3); HEMATOCRIT 28.4 % (36.0-47.0); HEMOGLOBIN 9.4 g/dL (12.0-15.5); LYMPH # 1.1 x10^3/uL (1.0-4.8); LYMPH % 7 % (24-48); MEAN CORPUSCULAR HEMOGLOBIN 29 pg (25-35); MEAN CORPUSCULAR HGB CONC 33 g/dL (31-37); MEAN CORPUSCULAR VOLUME 88 fL (79-100); MONO % 4 % (0-9); NEUT % 88 % (31-73); PLATELET COUNT 204 x10^3/uL (140-400); RED CELL DISTRIBUTION WIDTH 15.4 % (11.5-14.5)
[2016-12-21] MEDS: MELOXICAM 7.5 MG TABLET PO SCH (09:30)
--- NOTE | 2016-12-21 09:31 | PDOC1 ---
History and Physical Date of Admission Date of Admission DATE: 12/21/16 TIME: 09:27 Identification/Chief Complaint Chief Complaint abd pain, foul urine Problems: Source Source: Chart review, Patient History of Present Illness History of Present Illness Ms. Dejesus, 56 y/o female admit for acute worse abd pain. SHe is almost 2 wks s/p TVH, BSO, A&P repair and bladder sling. She had post-op pain, and small hematoma, and has not had a sheets cath for the past week. she need PRBC transfusion last week She reports foul smelling urine that is also dark and gritty. she works at [employer], she feels a little improved today, she was unable to tolerate PO quinolone at home for tx of this UTI, Past Medical History Cardiovascular: Hyperlipidemia Pulmonary: No pertinent hx GI: No pertinent hx Heme/Onc: No pertinent hx Hepatobiliary: No pertinent hx Psych: No pertinent hx Musculoskeletal: Osteoarthritis Renal/: No pertinent hx Endocrine: Hypothyroidism Past Surgical History Past Surgical History: Hysterectomy (TVH, BSO, A&P repari and bladder sling), Other Family History Family History: Cancer, Diabetes Social History Smoke: No ALCOHOL: none Drugs: None Current Problem List Problem List Problems Medical Problems: (1) Leukocytosis Status: Acute (2) Pelvic fluid collection Status: Acute (3) UTI (urinary tract infection) Status: Acute Problems: Current Medications Current Medications Current Medications Sodium Chloride 1,000 ml @ 1,000 mls/hr 1X ONCE IV Last administered on 21:01; Start 12/20/16 at 20:45; Stop 12/20/16 at 21:44; Status DC Hydromorphone HCl (Dilaudid) 0.5 mg 1X ONCE IV Last administered on 12/20/16 21:02; Start 12/20/16 at 20:45; Stop 12/20/16 at 20:48; Status DC Ondansetron HCl (Zofran) 4 mg 1X ONCE IV Last administered on 12/20/16 21:01 ; Start 12/20/16 at 20:45; Stop 12/20/16 at 20:48; Status DC Iohexol (Omnipaque 300 Mg/ml) 75 ml 1X ONCE IV Last administered on 12/20/16 21:15; Start 12/20/16 at 21:00; Stop 12/20/16 at 21:03; Status DC Info (Do NOT chart on this entry -- for MONITORING) 1 each PRN DAILY PRN MC SEE COMMENTS; Start 12/20/16 at 21:15; Stop 12/22/16 at 21:14 Ceftriaxone Sodium 50 ml @ 100 mls/hr 1X ONCE IV Last administered on 22:30; Start 12/20/16 at 22:30; Stop 12/20/16 at 22:59; Status DC Ondansetron HCl (Zofran) 4 mg PRN Q8HRS PRN IV NAUSEA/VOMITING; Start 12/20/16 at 22:45; Stop 12/21/16 at 22:44 Morphine Sulfate 4 mg PRN Q2HR PRN IV PAIN; Start 12/20/16 at 22:45; Stop 12/21 at 22:44 Sodium Chloride 1,000 ml @ 150 mls/hr Q6H40M IV Last administered on 22:45; Start 12/20/16 at 22:45; Stop 12/21/16 at 22:44 Ibuprofen (Motrin) 800 mg PRN Q8HRS PRN PO MILD PAIN / TEMP Last administered on 12/21/16 01:09; Start 12/21/16 at 00:30 Acetaminophen (Tylenol) 1,000 mg PRN Q4HRS PRN PO MILD PAIN / TEMP Last administered on 12/21/16 05:07; Start 12/21/16 at 00:30 Ceftriaxone Sodium 1 gm/ Sodium Chloride 50 ml @ 100 mls/hr Q24H IV ; Start at 22:00 Ringer's Solution 1,000 ml @ 150 mls/hr Q6H40M IV Last administered on 05:01; Start 12/21/16 at 00:30 Atorvastatin Calcium (Lipitor) 20 mg QHS PO ; Start 12/21/16 at 21:00 Docusate Sodium (Colace) 100 mg BID PO ; Start 12/21/16 at 09:30 Duloxetine HCl (Cymbalta) 30 mg DAILY PO ; Start 12/21/16 at 09:30 Levothyroxine Sodium (Synthroid) 75 mcg DAILYAC PO ; Start 12/21/16 at 09:30 Montelukast Sodium (Singulair) 10 mg DAILY PO ; Start 12/21/16 at 09:30 Oxycodone/ Acetaminophen (Percocet 5/325) 1 tab PRN Q6HRS PRN PO PAIN; Start at 08:30 Ropinirole HCl (Requip) 1 mg TID PO ; Start 12/21/16 at 09:30 Ibuprofen (Motrin) 800 mg PRN Q8HRS PRN PO INFLAMMATION; Start 12/21/16 at 08: 45 Pantoprazole Sodium (Protonix) 40 mg DAILYAC PO ; Start 12/21/16 at 09:30 Liothyronine Sodium (Cytomel) 10 mcg DAILY PO ; Start 12/21/16 at 09:30 Meloxicam (Mobic) 15 mg DAILY PO ; Start 12/21/16 at 09:30 Active Scripts Active Percocet 5-325 Mg Tablet (Oxycodone/Acetaminophen) 1 Each Tablet 1 Tab PO PRN Q6HRS PRN Ibuprofen 800 Mg Tablet 800 Mg PO PRN Q6HRS PRN Colace (Docusate Sodium) 100 Mg Capsule 100 Mg PO BID Reported Atorvastatin Calcium 20 Mg Tablet 20 Mg PO DAILY Montelukast Sodium Tablet (Montelukast Sodium) 10 Mg Tablet 10 Mg PO DAILY Liothyronine Sodium 25 Mcg Tablet 10 Mcg PO DAILY Cymbalta (Duloxetine Hcl) 30 Mg Capsule.dr 30 Mg PO DAILY Lansoprazole 30 Mg Capsule.dr 30 Mg PO DAILY Requip (Ropinirole Hcl) 1 Mg Tablet 1 Mg PO TID Meloxicam 15 Mg Tablet 15 Mg PO DAILY Levothyroxine Sodium 75 Mcg Tablet 75 Mcg PO DAILYAC Allergies Allergies: Coded Allergies: Sulfa (Sulfonamide Antibiotics) (Verified Allergy, Intermediate, Hives, ) ROS General: YES: Fatigue, Malaise, No: Chills, Night Sweats, Appetite, Other PSYCHOLOGICAL ROS: No: Anxiety, Behavioral Disorder, Concentration difficultie , Decreased libido, Depression, Disorientation, Hallucinations, Hostility, Irritablity, Memory difficulties, Mood Swings, Obsessive thoughts, Physical abuse, Sexual abuse, Sleep disturbances, Suicidal ideation, Other Eyes: No Blurry vision, No Decreased vision, No Double vision, No Dry eyes, No Excessive tearing, No Eye Pain, No Itchy Eyes, No Loss of vision, No Photophobia , No Scotomata, No Uses contacts, No Uses glasses, No Other HEENT: No: Heacaches, Visual Changes, Hearing change, Nasal congestion, Nasal discharge, Oral lesions, Sinus pain, Sore Throat, Epistaxis, Sneezing, Snoring, Tinnitus, Vertigo, Vocal changes, Other Respiratory: No: Cough, Hemoptysis, Orthopnea, Pleuritic Pain, Shortness of breath, SOB with excertion, Sputum Changes, Stridor, Tachypnea, Wheezing, Other Cardiovascular: No Chest Pain, No Palpitations, No Orthopnea, No Paroxysmal Noc. Dyspnea, No Edema, No Lt Headedness, No Other Gastrointestinal: Yes Nausea, Yes Abdominal Pain, No Vomiting, No Diarrhea, No Constipation, No Melena, No Hematochezia, No Other Genitourinary: No Dysuria, No Frequency, No Incontinence, No Hematuria, No Retention, No Discharge, No Urgency, No Pain, No Flank Pain, No Other, No , No , No , No , No , No , No Musculoskeletal: Yes Muscular Weakness, No Gait Disturbance, No Joint Pain, No Joint Stiffness, No Joint Swelling, No Muscle Pain, No Pain In:, No Swelling In:, No Other Neurological: Yes Gait Disturbance, No Behavorial Changes, No Bowel/Bladder ControlChng, No Confusion, No Dizziness, No Headaches, No Impaired Coord/balance, No Memory Loss, No Numbness/ Tingling, No Seizures, No Speech Problems, No Tremors, No Visual Changes, No Weakness, No Other Skin: No Dry Skin, No Eczema, No Hair Changes, No Lumps, No Mole Changes, No Mottling, No Nail Changes, No Pruritus, No Rash, No Skin Lesion Changes, No Other, No Acne Physical Exam General: Alert, Oriented X3, Cooperative, No acute distress HEENT: Atraumatic, PERRLA, EOMI, Mucous membr. moist/pink Lungs: Clear to auscultation Heart: no gallops, no murmurs Extremities: No cyanosis, No edema Skin: No rashes Neuro: Normal gait, Normal speech, Normal tone, Cranial nerves 3-12 NL Psych/Mental Status: Mental status NL, Mood NL Vitals Vitals Vital Signs Date Time Temp Pulse Resp B/P (MAP) Pulse Ox O2 Delivery O2 Flow Rate FiO2 12/21/16 04:56 99.7 83 18 108/60 (76) 97 Room Air 99.7 Labs Labs Laboratory Tests Test 12/20/16 19:35 12/20/16 19:45 12/20/16 22:00 12/21/16 04:40 Urine Color Yellow Urine Clarity Clear Urine pH 5.5 Urine Specific [place] 1.020 Urine Protein Negative mg/dL (NEG-TRACE) Urine Glucose (UA) Negative mg/dL (NEG) Urine Ketones (Stick) Negative mg/dL (NEG) Urine Blood Large (NEG) Urine Nitrite Negative (NEG) Urine Bilirubin Negative (NEG) Urine Urobilinogen Dipstick 0.2 mg/dL (0.2 mg/dL) Urine Leukocyte Esterase Moderate (NEG) Urine RBC 3-5 /HPF (0-2) Urine WBC 1-4 /HPF (0-4) Urine Squamous Epithelial Cells Occ /LPF Urine Bacteria Moderate /HPF (0-FEW) Urine Mucus Mod /LPF White Blood Count 18.6 x10^3/uL (4.0-11.0) 15.1 x10^3/uL (4.0-11.0) Red Blood Count 3.88 x10^6/uL (3.50-5.40) 3.22 x10^6/uL (3.50-5.40) Hemoglobin 11.2 g/dL (12.0-15.5) 9.4 g/dL (12.0-15.5) Hematocrit 34.6 % (36.0-47.0) 28.4 % (36.0-47.0) Mean Corpuscular Volume 89 fL (79-100) 88 fL (79-100) Mean Corpuscular Hemoglobin 29 pg (25-35) 29 pg (25-35) Mean Corpuscular Hemoglobin Concent 32 g/dL (31-37) 33 g/dL (31-37) Red Cell Distribution Width 15.6 % (11.5-14.5) 15.4 % (11.5-14.5) Platelet Count 256 x10^3/uL (140-400) 204 x10^3/uL (140-400) Neutrophils (%) (Auto) 89 % (31-73) 88 % (31-73) Lymphocytes (%) (Auto) 6 % (24-48) 7 % (24-48) Monocytes (%) (Auto) 4 % (0-9) 4 % (0-9) Eosinophils (%) (Auto) 1 % (0-3) 0 % (0-3) Basophils (%) (Auto) 0 % (0-3) 1 % (0-3) Neutrophils # (Auto) 16.5 x10^3uL (1.8-7.7) 13.3 x10^3uL (1.8-7.7) Lymphocytes # (Auto) 1.2 x10^3/uL (1.0-4.8) 1.1 x10^3/uL (1.0-4.8) Monocytes # (Auto) 0.7 x10^3/uL (0.0-1.1) 0.6 x10^3/uL (0.0-1.1) Eosinophils # (Auto) 0.1 x10^3/uL (0.0-0.7) 0.0 x10^3/uL (0.0-0.7) Basophils # (Auto) 0.0 x10^3/uL (0.0-0.2) 0.1 x10^3/uL (0.0-0.2) Segmented Neutrophils % 83 % (35-66) Lymphocytes % 8 % (24-48) Monocytes % 6 % (0-10) Eosinophils % 3 % (0-5) Platelet Estimate Adequate (ADEQUATE) Large Platelets Few Sodium Level 139 mmol/L (136-145) 138 mmol/L (136-145) Potassium Level 4.0 mmol/L (3.5-5.1) 3.7 mmol/L (3.5-5.1) Chloride Level 102 mmol/L (98-107) 104 mmol/L (98-107) Carbon Dioxide Level 27 mmol/L (21-32) 26 mmol/L (21-32) Anion Gap 10 (6-14) 8 (6-14) Blood Urea Nitrogen 14 mg/dL (7-20) 11 mg/dL (7-20) Creatinine 0.8 mg/dL (0.6-1.0) 0.8 mg/dL (0.6-1.0) Estimated GFR (Cockcroft-Gault) 73.7 73.7 BUN/Creatinine Ratio 18 (6-20) Glucose Level 117 mg/dL (70-99) 132 mg/dL (70-99) Calcium Level 8.9 mg/dL (8.5-10.1) 8.6 mg/dL (8.5-10.1) Total Bilirubin 0.8 mg/dL (0.2-1.0) Aspartate Amino Transf (AST/SGOT) 14 U/L (15-37) Alanine Aminotransferase (ALT/SGPT) 26 U/L (14-59) Alkaline Phosphatase 88 U/L (46-116) Total Protein 7.8 g/dL (6.4-8.2) Albumin 3.9 g/dL (3.4-5.0) Albumin/Globulin Ratio 1.0 (1.0-1.7) Lipase 198 U/L (73-393) Lactic Acid Level 1.4 mmol/L (0.4-2.0) Laboratory Tests Test 12/20/16 19:35 12/20/16 19:45 12/20/16 22:00 12/21/16 04:40 Urine Color Yellow Urine Clarity Clear Urine pH 5.5 Urine Specific [place] 1.020 Urine Protein Negative mg/dL (NEG-TRACE) Urine Glucose (UA) Negative mg/dL (NEG) Urine Ketones (Stick) Negative mg/dL (NEG) Urine Blood Large (NEG) Urine Nitrite Negative (NEG) Urine Bilirubin Negative (NEG) Urine Urobilinogen Dipstick 0.2 mg/dL (0.2 mg/dL) Urine Leukocyte Esterase Moderate (NEG) Urine RBC 3-5 /HPF (0-2) Urine WBC 1-4 /HPF (0-4) Urine Squamous Epithelial Cells Occ /LPF Urine Bacteria Moderate /HPF (0-FEW) Urine Mucus Mod /LPF White Blood Count 18.6 x10^3/uL (4.0-11.0) 15.1 x10^3/uL (4.0-11.0) Red Blood Count 3.88 x10^6/uL (3.50-5.40) 3.22 x10^6/uL (3.50-5.40) Hemoglobin 11.2 g/dL (12.0-15.5) 9.4 g/dL (12.0-15.5) Hematocrit 34.6 % (36.0-47.0) 28.4 % (36.0-47.0) Mean Corpuscular Volume 89 fL (79-100) 88 fL (79-100) Mean Corpuscular Hemoglobin 29 pg (25-35) 29 pg (25-35) Mean Corpuscular Hemoglobin Concent 32 g/dL (31-37) 33 g/dL (31-37) Red Cell Distribution Width 15.6 % (11.5-14.5) 15.4 % (11.5-14.5) Platelet Count 256 x10^3/uL (140-400) 204 x10^3/uL (140-400) Neutrophils (%) (Auto) 89 % (31-73) 88 % (31-73) Lymphocytes (%) (Auto) 6 % (24-48) 7 % (24-48) Monocytes (%) (Auto) 4 % (0-9) 4 % (0-9) Eosinophils (%) (Auto) 1 % (0-3) 0 % (0-3) Basophils (%) (Auto) 0 % (0-3) 1 % (0-3) Neutrophils # (Auto) 16.5 x10^3uL (1.8-7.7) 13.3 x10^3uL (1.8-7.7) Lymphocytes # (Auto) 1.2 x10^3/uL (1.0-4.8) 1.1 x10^3/uL (1.0-4.8) Monocytes # (Auto) 0.7 x10^3/uL (0.0-1.1) 0.6 x10^3/uL (0.0-1.1) Eosinophils # (Auto) 0.1 x10^3/uL (0.0-0.7) 0.0 x10^3/uL (0.0-0.7) Basophils # (Auto) 0.0 x10^3/uL (0.0-0.2) 0.1 x10^3/uL (0.0-0.2) Segmented Neutrophils % 83 % (35-66) Lymphocytes % 8 % (24-48) Monocytes % 6 % (0-10) Eosinophils % 3 % (0-5) Platelet Estimate Adequate (ADEQUATE) Large Platelets Few Sodium Level 139 mmol/L (136-145) 138 mmol/L (136-145) Potassium Level 4.0 mmol/L (3.5-5.1) 3.7 mmol/L (3.5-5.1) Chloride Level 102 mmol/L (98-107) 104 mmol/L (98-107) Carbon Dioxide Level 27 mmol/L (21-32) 26 mmol/L (21-32) Anion Gap 10 (6-14) 8 (6-14) Blood Urea Nitrogen 14 mg/dL (7-20) 11 mg/dL (7-20) Creatinine 0.8 mg/dL (0.6-1.0) 0.8 mg/dL (0.6-1.0) Estimated GFR (Cockcroft-Gault) 73.7 73.7 BUN/Creatinine Ratio 18 (6-20) Glucose Level 117 mg/dL (70-99) 132 mg/dL (70-99) Calcium Level 8.9 mg/dL (8.5-10.1) 8.6 mg/dL (8.5-10.1) Total Bilirubin 0.8 mg/dL (0.2-1.0) Aspartate Amino Transf (AST/SGOT) 14 U/L (15-37) Alanine Aminotransferase (ALT/SGPT) 26 U/L (14-59) Alkaline Phosphatase 88 U/L (46-116) Total Protein 7.8 g/dL (6.4-8.2) Albumin 3.9 g/dL (3.4-5.0) Albumin/Globulin Ratio 1.0 (1.0-1.7) Lipase 198 U/L (73-393) Lactic Acid Level 1.4 mmol/L (0.4-2.0) VTE Prophylaxis Ordered VTE Prophylaxis Devices: No VTE Pharmacological Prophylaxi: No Assessment/Plan Assessment/Plan Acute on chronic abd pain UTI, cont rocephin, cx pending recent hysterectomy obesity, BMI 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
[2016-12-21] MEDS: LEVOTHYROXINE 75 MCG TABLET PO SCH (09:40)
[2016-12-21] MEDS: DOCUSATE SODIUM 100 MG CAPSULE. PO SCH ×2 (09:40→21:11)
[2016-12-21] MEDS: LIOTHYRONINE 5 MCG TABLET. PO SCH (09:40)
[2016-12-21] MEDS: DULoxetine HCL 30 MG CAPSULE.DR PO SCH (09:40)
[2016-12-21] MEDS: PANTOPRAZOLE 40 MG TABLET.DR. PO SCH (09:41)
[2016-12-21] MEDS: MONTELUKAST SODIUM 10 MG TABLET. PO SCH (09:41)
[2016-12-21] MEDS: rOPINIRole 1 MG TABLET. PO SCH ×3 (09:44→21:11)
[2016-12-21 09:45] VITALS: BP 115/62
[2016-12-21] MEDS ORDERED: DOCUSATE SODIUM 100 MG CAPSULE. PO PRN (11:30)
[2016-12-21] MEDS ORDERED: POLYETHYLENE GLYCOL 3350 17 GM PACKET. PO PRN (11:30)
[2016-12-21] MEDS ORDERED: POLYETHYLENE GLYCOL 3350 17 GM PACKET. PO ONE (12:00)
[2016-12-21 15:00] VITALS: BP 114/59
[2016-12-21] MEDS ORDERED: OPIUM/BELLADONNA 30/16.2MG SUPP.RECT. PR ONE (17:30)
[2016-12-21 18:08] VITALS: BP 130/61
[2016-12-21] MEDS: ATORVASTATIN CALCIUM 20 MG TABLET PO SCH (21:11)
[2016-12-21 21:15] VITALS: BP 112/63
[2016-12-22] MEDS: IBUPROFEN 800 MG TABLET. PO PRN ×2 (01:43→10:43)
[2016-12-22] MEDS: LEVOTHYROXINE 75 MCG TABLET PO SCH (06:31)
[2016-12-22] MEDS: PANTOPRAZOLE 40 MG TABLET.DR. PO SCH (06:31)
[2016-12-22 06:39] VITALS: BP 116/77
[2016-12-22] MEDS: MAGNESIUM HYDROXIDE 2,400 MG/30 ML ORAL.SUSP. PO PRN (07:46)
[2016-12-22] MEDS: DOCUSATE SODIUM 100 MG CAPSULE. PO SCH ×2 (07:46→21:34)
--- NOTE | 2016-12-22 08:41 | PDOC ---
SURGICAL PROGRESS NOTE Subjective PT. feeling the same. No fevers overnight. SHe reports leakage of urine with movement and vaginal bleeding in toilet this am. Vital Signs Vital Signs Date Time Temp Pulse Resp B/P (MAP) Pulse Ox O2 Delivery O2 Flow Rate FiO2 12/22/16 06:39 98.5 85 18 116/77 (90) 97 Room Air 98.5 PATIENT HAS A PACE: No General: Alert, Oriented X3, Cooperative HEENT: Atraumatic Lungs: Clear to auscultation Heart: Regular rate Abdomen: Normal bowel sounds, Soft, No masses, Other (Suprapubic tenderness; Speculum: Scant bright red bleeding from suture line. No evidence of fistula or bladder injury. Leakage of urine from urethra with valsalva.) Extremities: No edema Neuro: Normal gait Psych/Mental Status: Mental status NL Labs Laboratory Tests Test 12/20/16 19:35 12/20/16 19:45 12/20/16 22:00 12/21/16 04:40 Urine Color Yellow Urine Clarity Clear Urine pH 5.5 Urine Specific [place] 1.020 Urine Protein Negative mg/dL (NEG-TRACE) Urine Glucose (UA) Negative mg/dL (NEG) Urine Ketones (Stick) Negative mg/dL (NEG) Urine Blood Large (NEG) Urine Nitrite Negative (NEG) Urine Bilirubin Negative (NEG) Urine Urobilinogen Dipstick 0.2 mg/dL (0.2 mg/dL) Urine Leukocyte Esterase Moderate (NEG) Urine RBC 3-5 /HPF (0-2) Urine WBC 1-4 /HPF (0-4) Urine Squamous Epithelial Cells Occ /LPF Urine Bacteria Moderate /HPF (0-FEW) Urine Mucus Mod /LPF White Blood Count 18.6 x10^3/uL (4.0-11.0) 15.1 x10^3/uL (4.0-11.0) Red Blood Count 3.88 x10^6/uL (3.50-5.40) 3.22 x10^6/uL (3.50-5.40) Hemoglobin 11.2 g/dL (12.0-15.5) 9.4 g/dL (12.0-15.5) Hematocrit 34.6 % (36.0-47.0) 28.4 % (36.0-47.0) Mean Corpuscular Volume 89 fL (79-100) 88 fL (79-100) Mean Corpuscular Hemoglobin 29 pg (25-35) 29 pg (25-35) Mean Corpuscular Hemoglobin Concent 32 g/dL (31-37) 33 g/dL (31-37) Red Cell Distribution Width 15.6 % (11.5-14.5) 15.4 % (11.5-14.5) Platelet Count 256 x10^3/uL (140-400) 204 x10^3/uL (140-400) Neutrophils (%) (Auto) 89 % (31-73) 88 % (31-73) Lymphocytes (%) (Auto) 6 % (24-48) 7 % (24-48) Monocytes (%) (Auto) 4 % (0-9) 4 % (0-9) Eosinophils (%) (Auto) 1 % (0-3) 0 % (0-3) Basophils (%) (Auto) 0 % (0-3) 1 % (0-3) Neutrophils # (Auto) 16.5 x10^3uL (1.8-7.7) 13.3 x10^3uL (1.8-7.7) Lymphocytes # (Auto) 1.2 x10^3/uL (1.0-4.8) 1.1 x10^3/uL (1.0-4.8) Monocytes # (Auto) 0.7 x10^3/uL (0.0-1.1) 0.6 x10^3/uL (0.0-1.1) Eosinophils # (Auto) 0.1 x10^3/uL (0.0-0.7) 0.0 x10^3/uL (0.0-0.7) Basophils # (Auto) 0.0 x10^3/uL (0.0-0.2) 0.1 x10^3/uL (0.0-0.2) Segmented Neutrophils % 83 % (35-66) Lymphocytes % 8 % (24-48) Monocytes % 6 % (0-10) Eosinophils % 3 % (0-5) Platelet Estimate Adequate (ADEQUATE) Large Platelets Few Sodium Level 139 mmol/L (136-145) 138 mmol/L (136-145) Potassium Level 4.0 mmol/L (3.5-5.1) 3.7 mmol/L (3.5-5.1) Chloride Level 102 mmol/L (98-107) 104 mmol/L (98-107) Carbon Dioxide Level 27 mmol/L (21-32) 26 mmol/L (21-32) Anion Gap 10 (6-14) 8 (6-14) Blood Urea Nitrogen 14 mg/dL (7-20) 11 mg/dL (7-20) Creatinine 0.8 mg/dL (0.6-1.0) 0.8 mg/dL (0.6-1.0) Estimated GFR (Cockcroft-Gault) 73.7 73.7 BUN/Creatinine Ratio 18 (6-20) Glucose Level 117 mg/dL (70-99) 132 mg/dL (70-99) Calcium Level 8.9 mg/dL (8.5-10.1) 8.6 mg/dL (8.5-10.1) Total Bilirubin 0.8 mg/dL (0.2-1.0) Aspartate Amino Transf (AST/SGOT) 14 U/L (15-37) Alanine Aminotransferase (ALT/SGPT) 26 U/L (14-59) Alkaline Phosphatase 88 U/L (46-116) Total Protein 7.8 g/dL (6.4-8.2) Albumin 3.9 g/dL (3.4-5.0) Albumin/Globulin Ratio 1.0 (1.0-1.7) Lipase 198 U/L (73-393) Lactic Acid Level 1.4 mmol/L (0.4-2.0) Problem List Problems Medical Problems: (1) Leukocytosis Status: Acute (2) Pelvic fluid collection Status: Acute (3) UTI (urinary tract infection) Status: Acute Assessment/Plan A: 1. s/p TVH, BSO, SSF, A&P repair and BLadder sling 2 wks ago 2. UTI: improved P: Continue IV abx. Check CBC. Anticipate d/c home tomorrow. Problems: BEBO HUGHES Jr, MD Dec 22, 2016 08:41
[2016-12-22] MEDS: ONDANSETRON PF 4 MG/2 ML VIAL. IV PRN ×2 (08:52→21:34)
[2016-12-22] MEDS ORDERED: DOCUSATE SODIUM 100 MG CAPSULE. PO SCH (09:00)
[2016-12-22 09:36] LABS: BASO % 0 % (0-3); EOS % 2 % (0-3); HEMATOCRIT 28.9 % (36.0-47.0); HEMOGLOBIN 9.8 g/dL (12.0-15.5); LYMPH # 0.6 x10^3/uL (1.0-4.8); LYMPH % 7 % (24-48); MEAN CORPUSCULAR HEMOGLOBIN 29 pg (25-35); MEAN CORPUSCULAR HGB CONC 34 g/dL (31-37); MEAN CORPUSCULAR VOLUME 87 fL (79-100); MONO % 6 % (0-9); NEUT % 84 % (31-73); PLATELET COUNT 203 x10^3/uL (140-400); RED BLOOD COUNT 3.31 x10^6/uL (3.50-5.40); RED CELL DISTRIBUTION WIDTH 14.7 % (11.5-14.5); WHITE BLOOD COUNT 9.1 x10^3/uL (4.0-11.0)
[2016-12-22] MEDS: MELOXICAM 7.5 MG TABLET PO SCH (10:37)
[2016-12-22] MEDS: LIOTHYRONINE 5 MCG TABLET. PO SCH (10:37)
[2016-12-22] MEDS: rOPINIRole 1 MG TABLET. PO SCH ×3 (10:37→21:34)
[2016-12-22] MEDS: MONTELUKAST SODIUM 10 MG TABLET. PO SCH (10:37)
[2016-12-22] MEDS: DULoxetine HCL 30 MG CAPSULE.DR PO SCH (10:37)
[2016-12-22 10:46] VITALS: BP 122/78
--- NOTE | 2016-12-22 12:15 | PDOC ---
PROGRESS NOTES Chief Complaint Chief Complaint Acute on chronic abd pain UTI, cont rocephin, cx pending recent hysterectomy obesity, BMI 37 post-op bleeding History of Present Illness History of Present Illness ambulating some no event pain and bleeding and nausea Vitals Vitals Vital Signs Date Time Temp Pulse Resp B/P (MAP) Pulse Ox O2 Delivery O2 Flow Rate FiO2 12/22/16 10:46 98.6 90 18 122/78 (93) 98 Room Air 98.6 Physical Exam General: Alert, Oriented X3, Cooperative Heart: Regular rate Abdomen: Normal bowel sounds, Soft, No masses, Other (Suprapubic tenderness; Speculum: Scant bright red bleeding from suture line. No evidence of fistula or bladder injury. Leakage of urine from urethra with valsalva.) Extremities: No edema Skin: No rashes Labs LABS Laboratory Tests Test 12/22/16 09:20 White Blood Count 9.1 x10^3/uL (4.0-11.0) Red Blood Count 3.31 x10^6/uL (3.50-5.40) Hemoglobin 9.8 g/dL (12.0-15.5) Hematocrit 28.9 % (36.0-47.0) Mean Corpuscular Volume 87 fL (79-100) Mean Corpuscular Hemoglobin 29 pg (25-35) Mean Corpuscular Hemoglobin Concent 34 g/dL (31-37) Red Cell Distribution Width 14.7 % (11.5-14.5) Platelet Count 203 x10^3/uL (140-400) Neutrophils (%) (Auto) 84 % (31-73) Lymphocytes (%) (Auto) 7 % (24-48) Monocytes (%) (Auto) 6 % (0-9) Eosinophils (%) (Auto) 2 % (0-3) Basophils (%) (Auto) 0 % (0-3) Neutrophils # (Auto) 7.7 x10^3uL (1.8-7.7) Lymphocytes # (Auto) 0.6 x10^3/uL (1.0-4.8) Monocytes # (Auto) 0.6 x10^3/uL (0.0-1.1) Eosinophils # (Auto) 0.2 x10^3/uL (0.0-0.7) Basophils # (Auto) 0.0 x10^3/uL (0.0-0.2) Assessment and Plan Assessmemt and Plan Problems Medical Problems: (1) Leukocytosis Status: Acute (2) Pelvic fluid collection Status: Acute (3) UTI (urinary tract infection) Status: Acute Problems: Comment Review of Relevant I have reviewed the following items george (where applicable) has been applied. Labs Laboratory Tests Test 12/20/16 19:35 12/20/16 19:45 12/20/16 22:00 12/21/16 04:40 Urine Color Yellow Urine Clarity Clear Urine pH 5.5 Urine Specific [place] 1.020 Urine Protein Negative mg/dL (NEG-TRACE) Urine Glucose (UA) Negative mg/dL (NEG) Urine Ketones (Stick) Negative mg/dL (NEG) Urine Blood Large (NEG) Urine Nitrite Negative (NEG) Urine Bilirubin Negative (NEG) Urine Urobilinogen Dipstick 0.2 mg/dL (0.2 mg/dL) Urine Leukocyte Esterase Moderate (NEG) Urine RBC 3-5 /HPF (0-2) Urine WBC 1-4 /HPF (0-4) Urine Squamous Epithelial Cells Occ /LPF Urine Bacteria Moderate /HPF (0-FEW) Urine Mucus Mod /LPF White Blood Count 18.6 x10^3/uL (4.0-11.0) 15.1 x10^3/uL (4.0-11.0) Red Blood Count 3.88 x10^6/uL (3.50-5.40) 3.22 x10^6/uL (3.50-5.40) Hemoglobin 11.2 g/dL (12.0-15.5) 9.4 g/dL (12.0-15.5) Hematocrit 34.6 % (36.0-47.0) 28.4 % (36.0-47.0) Mean Corpuscular Volume 89 fL (79-100) 88 fL (79-100) Mean Corpuscular Hemoglobin 29 pg (25-35) 29 pg (25-35) Mean Corpuscular Hemoglobin Concent 32 g/dL (31-37) 33 g/dL (31-37) Red Cell Distribution Width 15.6 % (11.5-14.5) 15.4 % (11.5-14.5) Platelet Count 256 x10^3/uL (140-400) 204 x10^3/uL (140-400) Neutrophils (%) (Auto) 89 % (31-73) 88 % (31-73) Lymphocytes (%) (Auto) 6 % (24-48) 7 % (24-48) Monocytes (%) (Auto) 4 % (0-9) 4 % (0-9) Eosinophils (%) (Auto) 1 % (0-3) 0 % (0-3) Basophils (%) (Auto) 0 % (0-3) 1 % (0-3) Neutrophils # (Auto) 16.5 x10^3uL (1.8-7.7) 13.3 x10^3uL (1.8-7.7) Lymphocytes # (Auto) 1.2 x10^3/uL (1.0-4.8) 1.1 x10^3/uL (1.0-4.8) Monocytes # (Auto) 0.7 x10^3/uL (0.0-1.1) 0.6 x10^3/uL (0.0-1.1) Eosinophils # (Auto) 0.1 x10^3/uL (0.0-0.7) 0.0 x10^3/uL (0.0-0.7) Basophils # (Auto) 0.0 x10^3/uL (0.0-0.2) 0.1 x10^3/uL (0.0-0.2) Segmented Neutrophils % 83 % (35-66) Lymphocytes % 8 % (24-48) Monocytes % 6 % (0-10) Eosinophils % 3 % (0-5) Platelet Estimate Adequate (ADEQUATE) Large Platelets Few Sodium Level 139 mmol/L (136-145) 138 mmol/L (136-145) Potassium Level 4.0 mmol/L (3.5-5.1) 3.7 mmol/L (3.5-5.1) Chloride Level 102 mmol/L (98-107) 104 mmol/L (98-107) Carbon Dioxide Level 27 mmol/L (21-32) 26 mmol/L (21-32) Anion Gap 10 (6-14) 8 (6-14) Blood Urea Nitrogen 14 mg/dL (7-20) 11 mg/dL (7-20) Creatinine 0.8 mg/dL (0.6-1.0) 0.8 mg/dL (0.6-1.0) Estimated GFR (Cockcroft-Gault) 73.7 73.7 BUN/Creatinine Ratio 18 (6-20) Glucose Level 117 mg/dL (70-99) 132 mg/dL (70-99) Calcium Level 8.9 mg/dL (8.5-10.1) 8.6 mg/dL (8.5-10.1) Total Bilirubin 0.8 mg/dL (0.2-1.0) Aspartate Amino Transf (AST/SGOT) 14 U/L (15-37) Alanine Aminotransferase (ALT/SGPT) 26 U/L (14-59) Alkaline Phosphatase 88 U/L (46-116) Total Protein 7.8 g/dL (6.4-8.2) Albumin 3.9 g/dL (3.4-5.0) Albumin/Globulin Ratio 1.0 (1.0-1.7) Lipase 198 U/L (73-393) Lactic Acid Level 1.4 mmol/L (0.4-2.0) Test 12/22/16 09:20 White Blood Count 9.1 x10^3/uL (4.0-11.0) Red Blood Count 3.31 x10^6/uL (3.50-5.40) Hemoglobin 9.8 g/dL (12.0-15.5) Hematocrit 28.9 % (36.0-47.0) Mean Corpuscular Volume 87 fL (79-100) Mean Corpuscular Hemoglobin 29 pg (25-35) Mean Corpuscular Hemoglobin Concent 34 g/dL (31-37) Red Cell Distribution Width 14.7 % (11.5-14.5) Platelet Count 203 x10^3/uL (140-400) Neutrophils (%) (Auto) 84 % (31-73) Lymphocytes (%) (Auto) 7 % (24-48) Monocytes (%) (Auto) 6 % (0-9) Eosinophils (%) (Auto) 2 % (0-3) Basophils (%) (Auto) 0 % (0-3) Neutrophils # (Auto) 7.7 x10^3uL (1.8-7.7) Lymphocytes # (Auto) 0.6 x10^3/uL (1.0-4.8) Monocytes # (Auto) 0.6 x10^3/uL (0.0-1.1) Eosinophils # (Auto) 0.2 x10^3/uL (0.0-0.7) Basophils # (Auto) 0.0 x10^3/uL (0.0-0.2) Laboratory Tests Test 12/22/16 09:20 White Blood Count 9.1 x10^3/uL (4.0-11.0) Red Blood Count 3.31 x10^6/uL (3.50-5.40) Hemoglobin 9.8 g/dL (12.0-15.5) Hematocrit 28.9 % (36.0-47.0) Mean Corpuscular Volume 87 fL (79-100) Mean Corpuscular Hemoglobin 29 pg (25-35) Mean Corpuscular Hemoglobin Concent 34 g/dL (31-37) Red Cell Distribution Width 14.7 % (11.5-14.5) Platelet Count 203 x10^3/uL (140-400) Neutrophils (%) (Auto) 84 % (31-73) Lymphocytes (%) (Auto) 7 % (24-48) Monocytes (%) (Auto) 6 % (0-9) Eosinophils (%) (Auto) 2 % (0-3) Basophils (%) (Auto) 0 % (0-3) Neutrophils # (Auto) 7.7 x10^3uL (1.8-7.7) Lymphocytes # (Auto) 0.6 x10^3/uL (1.0-4.8) Monocytes # (Auto) 0.6 x10^3/uL (0.0-1.1) Eosinophils # (Auto) 0.2 x10^3/uL (0.0-0.7) Basophils # (Auto) 0.0 x10^3/uL (0.0-0.2) Microbiology 12/20/16 Blood Culture - Preliminary, Resulted NO GROWTH AFTER 1 DAY Medications Current Medications Sodium Chloride 1,000 ml @ 1,000 mls/hr 1X ONCE IV Last administered on t 21:01; Start 12/20/16 at 20:45; Stop 12/20/16 at 21:44; Status DC Hydromorphone HCl (Dilaudid) 0.5 mg 1X ONCE IV Last administered on 12/20/16 21:02; Start 12/20/16 at 20:45; Stop 12/20/16 at 20:48; Status DC Ondansetron HCl (Zofran) 4 mg 1X ONCE IV Last administered on 12/20/16 21:01 ; Start 12/20/16 at 20:45; Stop 12/20/16 at 20:48; Status DC Iohexol (Omnipaque 300 Mg/ml) 75 ml 1X ONCE IV Last administered on 12/20/16 21:15; Start 12/20/16 at 21:00; Stop 12/20/16 at 21:03; Status DC Info (Do NOT chart on this entry -- for MONITORING) 1 each PRN DAILY PRN MC SEE COMMENTS; Start 12/20/16 at 21:15; Stop 12/22/16 at 21:14 Ceftriaxone Sodium 50 ml @ 100 mls/hr 1X ONCE IV Last administered on 22:30; Start 12/20/16 at 22:30; Stop 12/20/16 at 22:59; Status DC Ondansetron HCl (Zofran) 4 mg PRN Q8HRS PRN IV NAUSEA/VOMITING; Start 12/20/16 at 22:45; Stop 12/21/16 at 22:44; Status DC Morphine Sulfate 4 mg PRN Q2HR PRN IV PAIN; Start 12/20/16 at 22:45; Stop 12/21 at 22:44; Status DC Sodium Chloride 1,000 ml @ 150 mls/hr Q6H40M IV Last administered on 22:45; Start 12/20/16 at 22:45; Stop 12/21/16 at 22:44; Status DC Ibuprofen (Motrin) 800 mg PRN Q8HRS PRN PO MILD PAIN / TEMP Last administered on 12/22/16 10:43; Start 12/21/16 at 00:30 Acetaminophen (Tylenol) 1,000 mg PRN Q4HRS PRN PO MILD PAIN / TEMP Last administered on 12/21/16 16:06; Start 12/21/16 at 00:30 Ceftriaxone Sodium 1 gm/ Sodium Chloride 50 ml @ 100 mls/hr Q24H IV Last administered on 12/21/16 21:12; Start 12/21/16 at 22:00 Ringer's Solution 1,000 ml @ 150 mls/hr Q6H40M IV Last administered on 13:05; Start 12/21/16 at 00:30 Atorvastatin Calcium (Lipitor) 20 mg QHS PO Last administered on 12/21/16 21: 11; Start 12/21/16 at 21:00 Docusate Sodium (Colace) 100 mg BID PO Last administered on 12/22/16 07:46; Start 12/21/16 at 09:30 Duloxetine HCl (Cymbalta) 30 mg DAILY PO Last administered on 12/22/16 10:37; Start 12/21/16 at 09:30 Levothyroxine Sodium (Synthroid) 75 mcg DAILYAC PO Last administered on 06:31; Start 12/21/16 at 09:30 Montelukast Sodium (Singulair) 10 mg DAILY PO Last administered on 12/22/16 10 :37; Start 12/21/16 at 09:30 Oxycodone/ Acetaminophen (Percocet 5/325) 1 tab PRN Q6HRS PRN PO PAIN; Start at 08:30 Ropinirole HCl (Requip) 1 mg TID PO Last administered on 12/22/16 10:37; Start 12/21/16 at 09:30 Ibuprofen (Motrin) 800 mg PRN Q8HRS PRN PO INFLAMMATION; Start 12/21/16 at 08: 45 Pantoprazole Sodium (Protonix) 40 mg DAILYAC PO Last administered on 12/22/16 06:31; Start 12/21/16 at 09:30 Liothyronine Sodium (Cytomel) 10 mcg DAILY PO Last administered on 12/22/16 10 :37; Start 12/21/16 at 09:30 Meloxicam (Mobic) 15 mg DAILY PO Last administered on 12/22/16 10:37; Start at 09:30 Docusate Sodium (Colace) 100 mg PRN DAILY PRN PO CONSTIPATION; Start 12/21/16 at 11:30 Docusate Sodium (Colace) 100 mg DAILY PO ; Start 12/22/16 at 09:00; Status UNV Polyethylene Glycol (miraLAX PACKET) 17 gm 1X ONCE PO Last administered on 12:04; Start 12/21/16 at 12:00; Stop 12/21/16 at 12:01; Status DC Polyethylene Glycol (miraLAX PACKET) 17 gm PRN DAILY PRN PO CONSTIPATION; Start 12/21/16 at 11:30 Belladonna Alkaloids/Opium (B & O) 1 supp 1X ONCE WA Last administered on 12/21 17:54; Start 12/21/16 at 17:30; Stop 12/21/16 at 17:31; Status DC Magnesium Hydroxide (Milk Of Magnesia) 2,400 mg PRN DAILY PRN PO CONSTIPATION Last administered on 12/22/16 07:46; Start 12/22/16 at 07:30 Ondansetron HCl (Zofran Odt) 4 mg PRN Q6HRS PRN PO NAUSEA/VOMITING; Start 12/22 at 08:45 Ondansetron HCl (Zofran) 4 mg PRN Q6HRS PRN IV NAUSEA/VOMITING Last administered on 12/22/16 08:52; Start 12/22/16 at 08:45 Active Scripts Active Percocet 5-325 Mg Tablet (Oxycodone/Acetaminophen) 1 Each Tablet 1 Tab PO PRN Q6HRS PRN Ibuprofen 800 Mg Tablet 800 Mg PO PRN Q6HRS PRN Colace (Docusate Sodium) 100 Mg Capsule 100 Mg PO BID Reported Atorvastatin Calcium 20 Mg Tablet 20 Mg PO DAILY Montelukast Sodium Tablet (Montelukast Sodium) 10 Mg Tablet 10 Mg PO DAILY Liothyronine Sodium 25 Mcg Tablet 10 Mcg PO DAILY Cymbalta (Duloxetine Hcl) 30 Mg Capsule.dr 30 Mg PO DAILY Lansoprazole 30 Mg Capsule.dr 30 Mg PO DAILY Requip (Ropinirole Hcl) 1 Mg Tablet 1 Mg PO TID Meloxicam 15 Mg Tablet 15 Mg PO DAILY Levothyroxine Sodium 75 Mcg Tablet 75 Mcg PO DAILYAC Vitals/I & O Vital Sign - Last 24 Hours 12/21/16 12/21/16 12/21/16 12/21/16 15:00 17:54 18:08 21:15 Temp 97.8 98.2 98.4 97.8 98.2 98.4 Pulse 80 79 66 Resp 16 20 20 18 B/P (MAP) 114/59 (77) 130/61 (84) 112/63 (79) Pulse Ox 98 98 97 O2 Delivery Room Air Room Air Room Air 12/22/16 12/22/16 06:39 10:46 Temp 98.5 98.6 98.5 98.6 Pulse 85 90 Resp 18 18 B/P (MAP) 116/77 (90) 122/78 (93) Pulse Ox 97 98 O2 Delivery Room Air Room Air Intake and Output 12/22/16 12/22/16 12/23/16 15:00 23:00 07:00 Intake Total 110 ml Output Total 400 ml Balance -290 ml TRA CABRERA MD Dec 22, 2016 12:15
[2016-12-22] MEDS: ONDANSETRON ODT 4 MG TAB.RAPDIS. PO PRN (14:24)
[2016-12-22] MEDS: ACETAMINOPHEN 500 MG TABLET PO PRN ×2 (16:34→21:34)
[2016-12-22] MEDS: ATORVASTATIN CALCIUM 20 MG TABLET PO SCH (21:34)
[2016-12-22 23:00] VITALS: BP 123/65
[2016-12-23] MEDS: LEVOTHYROXINE 75 MCG TABLET PO SCH (06:36)
[2016-12-23] MEDS: PANTOPRAZOLE 40 MG TABLET.DR. PO SCH (06:36)
[2016-12-23] MEDS: MAGNESIUM HYDROXIDE 2,400 MG/30 ML ORAL.SUSP. PO PRN (06:36)
[2016-12-23 06:42] VITALS: BP 134/83
[2016-12-23] MEDS: LIOTHYRONINE 5 MCG TABLET. PO SCH (09:53)
[2016-12-23] MEDS: DOCUSATE SODIUM 100 MG CAPSULE. PO SCH (09:53)
[2016-12-23] MEDS: MONTELUKAST SODIUM 10 MG TABLET. PO SCH (09:54)
[2016-12-23] MEDS: DULoxetine HCL 30 MG CAPSULE.DR PO SCH (09:54)
[2016-12-23] MEDS: MELOXICAM 7.5 MG TABLET PO SCH (09:54)
[2016-12-23] MEDS: IBUPROFEN 800 MG TABLET. PO PRN (09:54)
[2016-12-23] MEDS: ONDANSETRON ODT 4 MG TAB.RAPDIS. PO PRN (09:54)
[2016-12-23 10:20] VITALS: BP 132/62
--- NOTE | 2016-12-23 12:35 | PDOC ---
SURGICAL PROGRESS NOTE Subjective Pt. feeling better. She has more control of bladder function with occasional leakage of urine. She had bowel movement and felt much better. Abd pain improved. Vital Signs Vital Signs Date Time Temp Pulse Resp B/P (MAP) Pulse Ox O2 Delivery O2 Flow Rate FiO2 12/23/16 06:42 97.8 91 20 134/83 (100) 97.8 12/22/16 23:00 97 Room Air PATIENT HAS A PACE: No General: Alert, Oriented X3, Cooperative HEENT: Atraumatic Lungs: Clear to auscultation Heart: Regular rate Abdomen: Normal bowel sounds, Soft, No tenderness, No masses Psych/Mental Status: Mental status NL Labs Laboratory Tests Test 12/22/16 09:20 White Blood Count 9.1 x10^3/uL (4.0-11.0) Red Blood Count 3.31 x10^6/uL (3.50-5.40) Hemoglobin 9.8 g/dL (12.0-15.5) Hematocrit 28.9 % (36.0-47.0) Mean Corpuscular Volume 87 fL (79-100) Mean Corpuscular Hemoglobin 29 pg (25-35) Mean Corpuscular Hemoglobin Concent 34 g/dL (31-37) Red Cell Distribution Width 14.7 % (11.5-14.5) Platelet Count 203 x10^3/uL (140-400) Neutrophils (%) (Auto) 84 % (31-73) Lymphocytes (%) (Auto) 7 % (24-48) Monocytes (%) (Auto) 6 % (0-9) Eosinophils (%) (Auto) 2 % (0-3) Basophils (%) (Auto) 0 % (0-3) Neutrophils # (Auto) 7.7 x10^3uL (1.8-7.7) Lymphocytes # (Auto) 0.6 x10^3/uL (1.0-4.8) Monocytes # (Auto) 0.6 x10^3/uL (0.0-1.1) Eosinophils # (Auto) 0.2 x10^3/uL (0.0-0.7) Basophils # (Auto) 0.0 x10^3/uL (0.0-0.2) Problem List Problems Medical Problems: (1) Leukocytosis Status: Acute (2) Pelvic fluid collection Status: Acute (3) UTI (urinary tract infection) Status: Acute Assessment/Plan UTI: resolved P: D/c home. f/u in 1 week. Problems: BEBO HUGHES Jr, MD Dec 23, 2016 12:35
[2016-12-23 14:25] VITALS: BP 136/32
== END 2016-12-23 15:00 | disposition home or self-care (01) | DRG 690 ==
LOC: ER 19:24 → 3 NORTH 22:10
PROVIDERS: ADMIT Internal Medicine; ATTEND Internal Medicine
DX: N39.0 Urinary tract infection, site not specified (principal); E03.9 Hypothyroidism, unspecified; E78.5 Hyperlipidemia, unspecified; M19.90 Unspecified osteoarthritis, unspecified site; G89.29 Other chronic pain; E66.9 Obesity, unspecified; E78.00 Pure hypercholesterolemia, unspecified; G25.81 Restless legs syndrome; G47.30 Sleep apnea, unspecified; J45.909 Unspecified asthma, uncomplicated; K21.9 Gastro-esophageal reflux disease without esophagitis; Z68.37 Body mass index [BMI] 37.0-37.9, adult; Z88.2 Allergy status to sulfonamides; Z90.710 Acquired absence of both cervix and uterus; Z83.3 Family history of diabetes mellitus
CPT/HCPCS: 36415; 74177; 80048; 80053; 81001; 83605; 83690; 85007; 85025; 87040; 87086; 96361; 96374; 96375; J0690; J0696; J1170; J2405; J7030; J7120; Q0162; Q9967; 99285-25

== ENCOUNTER → 2017-08-24 | Outpatient (CLI) | payer OTHER ==
[2017-08-24] MEDS: IOHEXOL 240 MG/ML 50ML VIAL. PO (08:15)
[2017-08-24] MEDS: IOHEXOL 300 MG/ML 100ML VIAL. IV (09:37)
== END | disposition home or self-care (01) ==
LOC: KCIC CT 08:05
DX: N32.89 Other specified disorders of bladder (principal); M51.36 Other intervertebral disc degeneration, lumbar region; E03.9 Hypothyroidism, unspecified; K21.9 Gastro-esophageal reflux disease without esophagitis
CPT/HCPCS: 72194; Q9966; Q9967

== ENCOUNTER → 2017-09-09 | Outpatient (CLI) | payer OTHER ==
[~2017-09-09] MED LIST changes: -ATOR20TA58 PO; -AZIT250T PO; +BUPIVACAINE MPF 0.25% 10 ML VIAL.; -DOCU-109 PO; -DULO30CA2 PO; -IBUP-1060 PO; +IOHEXOL 180 MG/ML 10 ML VIAL.; -LANS30CA PO; -LEVO75TA5 PO; -LIOT25TA3 PO; -MELO15TA23 PO; -MONT10TA9 PO; -OXYC-323 PO; -ROPI1TAB PO; +methylPREDNISolone ACETATE 80 MG/ML VIAL.
== END | disposition home or self-care (01) ==
LOC: PNCL 09:39
DX: M16.11 Unilateral primary osteoarthritis, right hip (principal); E03.9 Hypothyroidism, unspecified; K21.9 Gastro-esophageal reflux disease without esophagitis; Z90.710 Acquired absence of both cervix and uterus; Z98.890 Other specified postprocedural states; Z98.51 Tubal ligation status; Z79.899 Other long term (current) drug therapy; Z88.2 Allergy status to sulfonamides; Z88.1 Allergy status to other antibiotic agents; Z80.3 Family history of malignant neoplasm of breast; Z82.49 Family history of ischemic heart disease and other diseases of the circulatory system; G47.30 Sleep apnea, unspecified; Z90.49 Acquired absence of other specified parts of digestive tract; Z87.440 Personal history of urinary (tract) infections; F32.9 Major depressive disorder, single episode, unspecified; F17.200 Nicotine dependence, unspecified, uncomplicated
CPT/HCPCS: 20610; 77002; J1040; J3490; Q9965

== ENCOUNTER → 2017-09-29 | Outpatient (CLI) | payer OTHER ==
[2017-09-30] MEDS: REGADENOSON 0.4 MG/5 ML DISP.SYRIN. IV (09:46)
== END | disposition home or self-care (01) ==
LOC: NM 08:18
DX: I51.7 Cardiomegaly (principal); E78.00 Pure hypercholesterolemia, unspecified; Z82.49 Family history of ischemic heart disease and other diseases of the circulatory system
CPT/HCPCS: 78452; 93017; 93306; 96374; 96375; 96376; A9500; J2785

== ENCOUNTER → 2018-03-02 | Outpatient (CLI) | payer OTHER ==
[~2018-03-02] MED LIST changes: +ATOR20TA58 PO; +AZIT250T PO; -BUPIVACAINE MPF 0.25% 10 ML VIAL.; +DOCU-109 PO; +DULO30CA2 PO; +IBUP-1060 PO; -IOHEXOL 180 MG/ML 10 ML VIAL.; +LANS30CA PO; +LEVO75TA5 PO; +LIOT25TA3 PO; +MELO15TA23 PO; +MIRA25TA PO; +MONT10TA9 PO; +OXYC-323 PO; +ROPI1TAB PO; -methylPREDNISolone ACETATE 80 MG/ML VIAL.
[2018-03-02 10:45] LABS: BASO # 0.1 x10^3/uL (0.0-0.2); BASO % 1 % (0-3); EOS # 0.2 x10^3/uL (0.0-0.7); EOS % 3 % (0-3); HEMATOCRIT 41.6 % (36.0-47.0); HEMOGLOBIN 14.2 g/dL (12.0-15.5); LYMPH % 31 % (24-48); MEAN CORPUSCULAR HEMOGLOBIN 30 pg (25-35); MEAN CORPUSCULAR HGB CONC 34 g/dL (31-37); MEAN CORPUSCULAR VOLUME 88 fL (79-100); MONO # 0.7 x10^3/uL (0.0-1.1); MONO % 11 % (0-9); NEUT # 3.6 x10^3uL (1.8-7.7); NEUT % 55 % (31-73); PLATELET COUNT 228 x10^3/uL (140-400); RED BLOOD COUNT 4.76 x10^6/uL (3.50-5.40); WHITE BLOOD COUNT 6.5 x10^3/uL (4.0-11.0)
[2018-03-02 11:07] LABS: CALCIUM 9.4 mg/dL (8.5-10.1); CREATININE 0.8 mg/dL (0.6-1.0); GFR 73.4; POTASSIUM 4.2 mmol/L (3.5-5.1); TOTAL BILIRUBIN 0.4 mg/dL (0.2-1.0); TOTAL PROTEIN 8.1 g/dL (6.4-8.2)
--- NOTE | 2018-03-02 12:25 | RAD ---
CHEST PA LATERAL dated 03/02/2018 10:25 AM. Comparison: 12/12/2016 Clinical Indication: PRE OP RT KNEE REPLACEMENT ON 04/11/18. . Findings: PA and lateral views of the chest were obtained. Heart and mediastinal contours within normal limits. Lungs are clear without focal consolidation. Vascular interstitium within normal limits. No pleural effusion or pneumothorax. Impression: No acute radiographic abnormality. Electronically signed by: Sg Ferguson MD (03/02/2018 12:22 PM) [id number]
== END | disposition home or self-care (01) ==
LOC: RAD 10:01
PROVIDERS: ATTEND Nurse Practitioner Family
DX: Z01.818 Encounter for other preprocedural examination (principal)
CPT/HCPCS: 36415; 71046; 80053; 85025; 85730

== ENCOUNTER → 2018-03-27 | Outpatient (CLI) | payer OTHER ==
[~2018-03-27] MED LIST changes: +ACET325T9 PO; +ASPI-630 PO; +METR70GE14 VG; +MULT-47 PO; -OXYC-323 PO; +OXYC1TAB15 PO
[2018-03-27 09:54] LABS: PROTHROMBIN TIME PATIENT 12.7 SEC (11.7-14.0)
[2018-03-27 10:27] LABS: BILIRUBIN,URINE NEGATIVE (NEG); CLARITY,URINE CLEAR; COLOR,URINE YELLOW; NITRITE,URINE NEGATIVE (NEG); PH,URINE 5.5; PROTEIN,URINE NEGATIVE (NEG-TRACE); UROBILINOGEN,URINE 0.2 mg/dL (0.2 mg/dL)
[2018-03-27 10:45] LABS: BACTERIA,URINE 0 /HPF (0-FEW); RBC,URINE 0 /HPF (0-2); SQUAMOUS EPITHELIAL CELL,UR FEW /LPF
== END | disposition home or self-care (01) ==
LOC: SURGPAT 13:11
PROVIDERS: ATTEND Orthopaedic Surgery
DX: Z01.818 Encounter for other preprocedural examination (principal); M17.11 Unilateral primary osteoarthritis, right knee
CPT/HCPCS: 36415; 81001; 85610; 85651; 85730; 87086; 87641

== ENCOUNTER → 2018-11-03 | Outpatient (CLI) | payer OTHER ==
[2018-04-12 06:20] VITALS: BP 124/60
[~2018-11-03] MED LIST changes: +LIOT25TA PO; -LIOT25TA3 PO; +MONT10TA49 PO; -MONT10TA9 PO; +WARF4TAB68 PO
[2018-11-03 13:14] LABS: ALBUMIN 4.1 g/dL (3.4-5.0); CALCIUM 9.4 mg/dL (8.5-10.1); CREATININE 0.8 mg/dL (0.6-1.0); GFR 73.2; POTASSIUM 4.6 mmol/L (3.5-5.1); TOTAL BILIRUBIN 0.4 mg/dL (0.2-1.0); TOTAL PROTEIN 8.2 g/dL (6.4-8.2)
[2018-11-03 13:19] LABS: CHOLESTEROL/HDL RATIO 2.9
[2018-11-03 21:07] LABS: THYROXINE 7.7 ug/dL (4.5-12.0)
== END | disposition home or self-care (01) ==
LOC: LAB 12:26
PROVIDERS: ATTEND Family Medicine
DX: E03.9 Hypothyroidism, unspecified (principal); E78.00 Pure hypercholesterolemia, unspecified
CPT/HCPCS: 36415; 80053; 80061; 84436; 84443; 84480

== ENCOUNTER 2019-05-21 11:00 | Emergency (ER) | payer OTHER ==
[~2019-05-21] VITALS: Ht 177.8 cm; Wt 127.2 kg
[~2019-05-21 11:00] MED LIST changes: -LIOT25TA PO; +LIOT25TA4 PO
[2019-05-21 11:28] VITALS: BP 141/69
--- NOTE | 2019-05-21 12:07 | PHYS DOC ---
Past Medical History Past Medical History: Arthritis, Asthma, GERD, High Cholesterol, Hypothyroid Additional Past Medical Histor: RLS, SLEEP APNEA Past Surgical History: Cholecystectomy, Hysterectomy, Tubal ligation Alcohol Use: None Drug Use: None Adult General Chief Complaint Chief Complaint: OTHER COMPLAINTS [facility] Patient is a 58 year old female who presents to the emergency department with complaints of bloody discharge from her right nipple that began 2 days ago. Patient denies any breast tenderness, redness, or findings of a lump of her right breast. She states she has had a normal mammogram in the past 12 months. In addition, patient complains of suprapubic discomfort after urination for the last week and increased urinary frequency. She denies any hematuria, inability to void, abdominal pain, nausea, vomiting, diarrhea, back pain, fever, or cough. She reports there has been a foul odor to her urine.She currently denies any p ain. All other ROS is neg unless otherwise noted in HPI. Review of Systems Review of Systems See Above Allergies Allergies Allergies Coded Allergies Type Severity Reaction Last Updated Verified Sulfa (Sulfonamide Antibiotics) Allergy Intermediate Hives 04/11/18 Yes levofloxacin Allergy Intermediate nausea 04/11/18 Yes alcohol Adverse Reaction Intermediate 04/11/18 Yes Physical Exam Physical Exam See Above Constitutional: Well developed, well nourished, no acute distress, non-toxic appearance, obese. [] HENT: Normocephalic, atraumatic, bilateral external ears normal, oropharynx moist, no oral exudates, nose normal. [] Eyes: PERRLA, EOMI, conjunctiva normal, no discharge. [] Neck: Normal range of motion, no stridor. [] Cardiovascular:Heart rate regular rhythm Lungs & Thorax: Respirations even and unlabored, no retractions, no respiratory distress Breasts: blood tinged R nipple discharge noted, No palpable mass, erythema, or warmth of R breast on exam. Katia RN at bedside for breast exam. Skin: Warm, dry, no erythema, no rash. [] Extremities: No cyanosis, ROM intact Neurologic: Alert and oriented X 3, no focal deficits noted. [] Psychologic: Affect normal, judgement normal, mood normal. [] Current Patient Data Vital Signs Vital Signs Date Time Temp Pulse Resp B/P (MAP) Pulse Ox O2 Delivery O2 Flow Rate FiO2 05/21/19 11:28 98.4 83 22 141/69 (93) 97 Room Air 98.4 Lab Values Laboratory Tests Test 05/21/19 12:37 Urine Collection Type Unknown Urine Color Yellow Urine Clarity Clear Urine pH 6.0 Urine Specific [place] 1.020 Urine Protein Negative mg/dL (NEG-TRACE) Urine Glucose (UA) Negative mg/dL (NEG) Urine Ketones (Stick) Negative mg/dL (NEG) Urine Blood Negative (NEG) Urine Nitrite Negative (NEG) Urine Bilirubin Negative (NEG) Urine Urobilinogen Dipstick 0.2 mg/dL (0.2 mg/dL) Urine Leukocyte Esterase Moderate (NEG) Urine RBC Occ /HPF (0-2) Urine WBC >40 /HPF (0-4) Urine Squamous Epithelial Cells Mod /LPF Urine Bacteria 0 /HPF (0-FEW) Urine Mucus Mod /LPF EKG EKG [] Radiology/Procedures Radiology/Procedures PROCEDURE: BREAST RIGHT EXAM: Right breast ultrasound. HISTORY: Bloody right nipple discharge. COMPARISON: No current mammography available. FINDINGS: Sonography of the right periareolar breast was performed. This reveals no mass, dilated ducts, intraductal mass or other suspicious abnormality. A circumscribed hypoechoic/anechoic mass at the 11:00 position 2.5 cm from the nipple is likely a mildly complicated cyst. Images of the right axilla revealed no enlarged lymph nodes. IMPRESSION: 1. BI-RADS Category 0: Incomplete, needs additional imaging evaluation. 2. Bilateral diagnostic mammography is recommended to complete this assessment. [] Course & Med Decision Making Course & Med Decision Making Pertinent Labs and Imaging studies reviewed. (See chart for details) [] Dragon Disclaimer Dragon Disclaimer This electronic medical record was generated, in whole or in part, using a voice recognition dictation system. Departure Departure Impression: Primary Impression: Bloody discharge from right nipple Additional Impression: Urinary tract infection Disposition: 01 HOME, SELF-CARE Condition: STABLE Referrals: ANDREA ALY MD (PCP) Patient Instructions: Breast Cyst, Urinary Tract Infection, [id number] Additional Instructions: Fill prescription(s) and use as directed. Avoid bladder irritants such as caffei ne, carbonation, and spicy foods. Increase clear fluids. Follow up with your primary care doctor about the abnormal breast discharge, return to the ER if symptoms worsen. Scripts Cephalexin (CEPHALEXIN) 500 Mg Capsule 1 CAP PO QID for 7 Days, #28 CAP 0 Refills Prov: ANUSHA ADAN APRN 05/21/19 Problem Qualifiers Additional Impression: Urinary tract infection Urinary tract infection type: site unspecified Hematuria presence: without hematuria Qualified Codes: N39.0 - Urinary tract infection, site not specified ANUSHA ADAN [employer] May 21, 2019 12:07
--- NOTE | 2019-05-21 12:28 | RAD ---
EXAM: Right breast ultrasound. HISTORY: Bloody right nipple discharge. COMPARISON: No current mammography available. FINDINGS: Sonography of the right periareolar breast was performed. This reveals no mass, dilated ducts, intraductal mass or other suspicious abnormality. A circumscribed hypoechoic/anechoic mass at the 11:00 position 2.5 cm from the nipple is likely a mildly complicated cyst. Images of the right axilla revealed no enlarged lymph nodes. IMPRESSION: 1. BI-RADS Category 0: Incomplete, needs additional imaging evaluation. 2. Bilateral diagnostic mammography is recommended to complete this assessment. Electronically signed by: Nela Coronel MD (05/21/2019 12:25 PM) [facility]
[2019-05-21 12:51] LABS: BILIRUBIN,URINE NEGATIVE (NEG); CLARITY,URINE CLEAR; COLOR,URINE YELLOW; NITRITE,URINE NEGATIVE (NEG); PROTEIN,URINE NEGATIVE (NEG-TRACE); UROBILINOGEN,URINE 0.2 mg/dL (0.2 mg/dL)
[2019-05-21 13:12] LABS: SQUAMOUS EPITHELIAL CELL,UR MOD /LPF
[2019-05-21 13:13] LABS: BACTERIA,URINE 0 /HPF (0-FEW); RBC,URINE OCC /HPF (0-2); WBC,URINE >40 /HPF (0-4)
[2019-05-21] MEDS ORDERED: CEPH500C PO (13:17)
== END 2019-05-21 13:25 | disposition home or self-care (01) ==
LOC: ER 11:00
DX: N39.0 Urinary tract infection, site not specified (principal); N64.52 Nipple discharge; J45.909 Unspecified asthma, uncomplicated; M19.90 Unspecified osteoarthritis, unspecified site; K21.9 Gastro-esophageal reflux disease without esophagitis; E78.00 Pure hypercholesterolemia, unspecified; E03.9 Hypothyroidism, unspecified; Z90.49 Acquired absence of other specified parts of digestive tract; Z90.710 Acquired absence of both cervix and uterus; Z98.51 Tubal ligation status; Z88.2 Allergy status to sulfonamides; Z88.1 Allergy status to other antibiotic agents; Z88.8 Allergy status to other drugs, medicaments and biological substances
CPT/HCPCS: 76641; 81001; 87086; 99285

== ENCOUNTER → 2019-05-28 | Outpatient (CLI) | payer OTHER ==
[2019-05-21 11:28] VITALS: BP 141/69
[~2019-05-28] MED LIST changes: +CEPH500C PO; +HYDR-3165 PO
[2019-05-28 09:31] LABS: BASO # 0.1 x10^3/uL (0.0-0.2); BASO % 1 % (0-3); EOS # 0.3 x10^3/uL (0.0-0.7); EOS % 5 % (0-3); HEMATOCRIT 38.9 % (36.0-47.0); HEMOGLOBIN 12.7 g/dL (12.0-15.5); LYMPH % 34 % (24-48); MEAN CORPUSCULAR HEMOGLOBIN 27 pg (25-35); MEAN CORPUSCULAR HGB CONC 33 g/dL (31-37); MEAN CORPUSCULAR VOLUME 83 fL (79-100); MONO # 0.5 x10^3/uL (0.0-1.1); MONO % 8 % (0-9); NEUT # 3.1 x10^3/uL (1.8-7.7); NEUT % 52 % (31-73); PLATELET COUNT 219 x10^3/uL (140-400); RED CELL DISTRIBUTION WIDTH 14.6 % (11.5-14.5)
[2019-05-28 09:57] LABS: CALCIUM 9.3 mg/dL (8.5-10.1); CREATININE 0.7 mg/dL (0.6-1.0); GFR 85.4; POTASSIUM 3.9 mmol/L (3.5-5.1)
--- NOTE | 2019-05-28 13:22 | EKG ---
[facility] [address] [place] [address] Test Date: 2019-05-28 Test Time: 13:04:26 Pat Name: REUBEN TUTTLE Department: Room: Gender: F [employer] Treatment Specialist: THAO : 1960 Requested By: TASHA SANCHEZ Order Number: [id number] Reading MD: Measurements Intervals [place] Rate: 66 P: 51 NH: 192 QRS: 36 QRSD: 80 T: 75 QT: 378 QTc: 398 Interpretive Statements SINUS RHYTHM T ABNORMALITY IN HIGH LATERAL LEADS ABNORMAL ECG RI6.02 Compared to ECG 12/12/2016 12:53:00 T-wave abnormality now present
--- NOTE | 2019-05-28 17:59 | RAD ---
EXAM: CHEST PA LATERAL INDICATION: Preop left knee replacement.. TECHNIQUE: PA and lateral views COMPARISON: None FINDINGS: The heart size is normal. The great vessels appear unremarkable. There is no hilar or mediastinal mass. The lungs are clear. There is no pleural effusion or pneumothorax. There are no significant osseous abnormalities. IMPRESSION: No active cardiopulmonary disease. Electronically signed by: Liam Hartley MD (05/28/2019 5:55 PM) [facility]
== END | disposition home or self-care (01) ==
LOC: SURGPAT 13:00
PROVIDERS: ATTEND Orthopaedic Surgery
DX: Z01.818 Encounter for other preprocedural examination (principal); R94.31 Abnormal electrocardiogram [ECG] [EKG]; M17.12 Unilateral primary osteoarthritis, left knee; E78.5 Hyperlipidemia, unspecified
CPT/HCPCS: 36415; 71046; 80048; 82040; 82306; 85025; 85610; 85651; 85730; 87641; 93005

== ENCOUNTER 2019-06-12 07:53 | Inpatient (IN) | payer OTHER ==
[~2019-06-12] VITALS: Ht 177.8 cm; Wt 101.5 kg
[2019-06-12] VITALS (8 sets, daily range): BP systolic 102–130; BP diastolic 46–79
[~2019-06-12 07:53] MED LIST changes: +ACETAMINOPHEN 500 MG TABLET PO PRN; +IV RINGERS,LACTATED 1000ML 1,000 ML IV SCH; +LIDOCAINE 1% PF 2 ML VIAL. ID PRN; +MORPHINE SULFATE 5 MG, KETOROLAC 30MG VIAL 30 MG, ROPIVacaine 0.5% PF 60 ML, EPINEPHrin... INT ART ONE; +ONDANSETRON PF 4 MG/2 ML VIAL. IV PRN; +PROCHLORPERAZINE 10 MG/2 ML VIAL. IV PRN; +TRANEXAMIC ACID 1,000 MG in IV NS 50ML -- 1ST BAG INJ ONE; +fentaNYL PF VIAL 100 MCG/2 ML VIAL IV PRN
[2019-06-12] MEDS ORDERED: TRANEXAMIC ACID 1,000 MG in IV NS 50ML -- 2ND BAG INJ ONE (08:00)
[2019-06-12] MEDS ORDERED: LIDOCAINE 2% PF 5 ML VIAL. ONE (08:01)
[2019-06-12] MEDS ORDERED: fentaNYL PF VIAL 100 MCG/2 ML VIAL ONE ×2 (08:01→11:14)
[2019-06-12] MEDS ORDERED: PROPOFOL 20 ML IV ONE (08:01)
[2019-06-12 09:08] LABS: PROTHROMBIN TIME PATIENT 13.3 SEC (11.7-14.0)
[2019-06-12] MEDS ORDERED: GABAPENTIN 300 MG CAPSULE. PO ONE (09:15)
[2019-06-12] MEDS ORDERED: MELOXICAM 7.5 MG TABLET PO ONE (09:15)
--- NOTE | 2019-06-12 09:55 | HP ---
ADMIT DATE: 06/12/2019 CHIEF COMPLAINT: Left knee pain. HISTORY OF PRESENT ILLNESS: The patient is well known to me from previous right total knee arthroplasty, overall doing very well, pleased with her results in her recovery. She is having left knee pain and some compensatory left hip and buttock area pain because of her affected gait. We had previously talked in clinic about reviewing the risks, benefits and postoperative course of the procedure. She said her only recent medical issue is an Emergency Department visit in which she had some bleeding from her nipple that occurred over a few days, she underwent a mammogram apparently that did not find anything and she was not necessarily given any followup. PAST MEDICAL HISTORY: Sleep apnea, arthritis, rectocele, contact dermatitis and depression. PAST SURGICAL HISTORY: Previous right knee arthroplasty, tubal ligation, cholecystectomy, hysterectomy. FAMILY HISTORY: Mom is of breast cancer; father of cardiomyopathy, he had factor V Leiden as well; arthritis in her sister; some type of cancer in maternal grandmother as well; and paternal grandmother had breast cancer. SOCIAL HISTORY: She is a former smoker, quit over 10 years ago. She is , lives with her children. Denies tobacco or drug use. Works as a registered nurse. MEDICATION LIST: Reviewed. ALLERGIES: INCLUDE SULFA, WHICH GAVE HER HIVES AND SWELLING; LEVAQUIN, WHICH GAVE HER SOME ARRHYTHMIAS. REVIEW OF SYSTEMS: Significant for the bleeding from her nipple. She denies any chest pain, shortness of breath, fever, chills or constitutional symptoms other than that. PHYSICAL EXAMINATION: VITAL SIGNS: Per admission sheet. HEENT: Atraumatic, normocephalic. HEART: Regular rate and rhythm. LUNGS: Clear to auscultation bilaterally. ABDOMEN: Benign. EXTREMITIES: Examination of the right knee reveals a well-healed midline incision with excellent patellofemoral tracking and stability. She has medial and lateral joint line tenderness on the left knee with no gross ligament instability, [id number] patellofemoral crepitus, and no groin pain on examination of the either hip. Negative straight leg raise bilaterally. Normal alignment and stability of bilateral ankles as well. IMAGING: X-rays show well-positioned total knee arthroplasty on the right, tricompartmental degenerative changes on the left. ASSESSMENT: Primary osteoarthritis, left knee, with left knee pain and history of total right knee replacement. TREATMENT PLAN: I had gone over with her review of the risks, benefits, postoperative course that she is familiar from the previous knee replacement surgery including the possibility of infection, nerve or blood vessel damage, medical or other anesthetic complications among others including possibility of continued pain, premature wear or loosening as well. All her questions were answered and she wishes to proceed with surgical evaluation and treatment today. I did encourage her to follow up with her primary care physician, Dr. Christianson, and appropriate followup on the bleeding from the nipple as this is way out of my treatment or comfort zone, but suggest that she do get some followup on that and follow up perhaps with even somebody specializing in the breast treatment issues, particularly given her family history, and the possible significance of the bleeding from the nipple, she agreed to do this; otherwise, will undergo total knee arthroplasty as planned today. TASHA SANCHEZ MD DR: BELTRAN/edu JOB#: [id number] / [id number]
[2019-06-12] MEDS ORDERED: BUPIVACAINE MPF 0.5% 30 ML VIAL. ONE (09:59)
[2019-06-12] MEDS ORDERED: BUPIVACAINE-EPI 0.5%-1:200000 MPF 30 ML VIAL. ONE (09:59)
[2019-06-12] MEDS ORDERED: SEVOFLURANE > 120 MINUTES. IH ONE (10:07)
[2019-06-12] MEDS ORDERED: DEXAMETHASONE SOD PHOS 20 MG/5 ML VIAL. ONE (10:07)
[2019-06-12] MEDS ORDERED: ONDANSETRON PF 4 MG/2 ML VIAL. ONE (10:07)
[2019-06-12] MEDS ORDERED: PHENYLEPHRINE in 0.9% NACL PF 1 MG/10 ML SYRINGE. IV ONE (10:21)
[2019-06-12] MEDS: fentaNYL PF VIAL 100 MCG/2 ML VIAL IV PRN ×4 (12:40→13:28)
[2019-06-12] MEDS ORDERED: fentaNYL PF VIAL 100 MCG/2 ML VIAL IV PRN (12:45)
[2019-06-12] MEDS ORDERED: MORPHINE SULFATE 2 MG/ML VIAL. IV PRN (12:45)
[2019-06-12] MEDS ORDERED: 0.9 % SODIUM CHLORIDE 10 ML DISP.SYRIN. IV PRN (12:45)
[2019-06-12] MEDS ORDERED: CALCIUM CARBONATE 500 MG TAB.CHEW PO PRN (12:45)
[2019-06-12] MEDS ORDERED: DEXTROSE 50% 25 GM / 50ML DISP.SYRIN. IV PRN (12:45)
[2019-06-12] MEDS ORDERED: diphenhydrAMINE 50 MG/ML VIAL IV PRN (12:45)
[2019-06-12] MEDS ORDERED: PROCHLORPERAZINE 5 MG TABLET. PO PRN (12:45)
[2019-06-12] MEDS ORDERED: metroNIDAZOLE 0.75% VAGINAL 1 APP TUBE VG PRN (12:45)
--- NOTE | 2019-06-12 13:02 | RAD ---
EXAM: AP and lateral views left knee DATE: 06/12/2019 12:33 PM INDICATION: Post op knee arthroplasty COMPARISON: 12/11/2018 FINDINGS/ IMPRESSION: Postoperative changes left total knee arthroplasty are now seen, in good alignment without definite hardware complication or fracture. Expected postoperative soft tissue changes including soft tissue and intra-articular gas as well as drain Electronically signed by: Fredis Quinteros MD (06/12/2019 12:59 PM) [id number]
[2019-06-12] MEDS: MORPHINE SULFATE 2 MG/ML VIAL. IV PRN ×2 (13:34→13:41)
--- NOTE | 2019-06-12 13:51 | PDOC4 ---
Operative Note Operative Note Date of surgery: 06/12/2019 Preoperative diagnosis: Degenerative joint disease left knee Postoperative diagnosis: Same Operative procedure: Left total knee arthroplasty Surgeon: Boris Assist: Ulysses Irvin nurse practitioner Anesthesia: Gen. Estimated blood loss: 25 mL Complications: None Drains: Hemovac drain and intra-articular pain catheter left knee Specimens: Joint surfaces to pathology Operative indications: Please see my preoperative clinic notes and today's history and physical for detailed operative indications Operative text: Patient was identified procedure verified patient placed in the supine position on the operating table. The left lower extremity was prepped and draped in standard sterile fashion with a thigh tourniquet. After timeout was performed patient procedure identified and verified the left lower extremity was exsanguinated by Esmarch bandage tourniquet inflated to 350 mmHg and a midline incision was made with a medial parapatellar approach fat pad was excised distal femur was drilled for the intramedullary cutting guide with a standard distal cut ACL and menisci were excised the PCL was preserved and a size 5 distal femoral cutting guide was placed in proper alignment referencing the posterior condyles. AP lateral chamfer cuts were made bony fragments sent for pathological evaluation and the external tibial cutting guide was then centered with the malleoli and second toe and following the tibial cut ligament balancing carried out with a 9 mm spacer noting excellent ligament balance side to side in in flexion extension. A size 5 tibial tray was then placed with drilling and broaching and a size 5 femoral component placed with a cruciate retaining insert and trial fit with a 9 mm deep dish medial congruent insert which provided excellent range of motion and stability. Patella was prepared with a 26 mm biconcave patella trial which trial fit excellent. The trial components were all removed thorough irrigation carried out normal saline solution and bleeding points were controlled by electrocautery. The following total knee components were cemented with polymethylmethacrylate cement consisting of a size 5 journey tibial component a size 5 cruciate retaining Oxinium femoral component and a size 26 biconcave patellar component. Excess cement was curetted away a size 9 mm deep dish medial congruent spacer was placed temporarily until cement was dry thorough irrigation again carried out normal saline solution and a size 9 mm polyethylene component was locked in place Hemovac drain and pain catheter were placed pain catheter mixture injected throughout the joint capsule and quadriceps split and retinaculum were closed with #5 Ethibond in an interrupted fashion and reinforced with #1 PDS strata fix suture in a running fashion. Subcutaneous closure with buried Vicryl suture subcuticular 3-0 Monocryl strata fix was followed by a floresita dressing with Acticoat. Toes were warm and pink following deflation of the tourniquet and patient was returned recovery room in stable condition having tolerated procedure well. Ulysses Irvin nurse practitioner was present for the procedure and assisted in the patient positioning prepping draping retraction and wound closure TASHA SANCHEZ MD Jun 12, 2019 13:51
[2019-06-12] MEDS: HYDROmorphone 2 MG/ML VIAL IV PRN ×2 (13:53→14:47)
[2019-06-12] MEDS: LABETALOL 20 MG/4 ML DISP.SYRIN. IVP PRN ×2 (14:25→14:45)
[2019-06-12] MEDS ORDERED: IV NORMAL SALINE 1000ML BAG 1,000 ML IV SCH (15:00)
[2019-06-12] MEDS ORDERED: WARFARIN 7.5 MG TABLET. PO ONE (16:00)
[2019-06-12] MEDS: oxyCODONE IR 5 MG TABLET PO PRN ×2 (16:02→21:14)
--- NOTE | 2019-06-12 16:04 | NUR ---
received from recovery. she is alert and oriented and wid awake. she is rating her pain a "5". states she can tolerate Lortab and oxy ir. she has good motion, sensation and pulses bilateral lower extremities. she has a light drainage (serous) behind the knee ; Hemovac intact and patent.
[2019-06-12] MEDS: FERROUS SULFATE 325 MG TABLET. PO SCH (16:58)
[2019-06-12] MEDS: ONDANSETRON ODT 4 MG TAB.RAPDIS. PO SCH (18:00)
[2019-06-12] MEDS: ONDANSETRON PF 4 MG/2 ML VIAL. IV SCH (18:00)
[2019-06-12] MEDS: KETOROLAC 30MG VIAL 30 MG, BUPIVACAINE MPF 0.25% 20 ML, EPINEPHrine 0.5 MG in TOTAL VOL... INT ART SCH (18:13)
[2019-06-12] MEDS: rOPINIRole 1 MG TABLET. PO SCH (21:14)
[2019-06-12] MEDS: ATORVASTATIN CALCIUM 20 MG TABLET PO SCH (21:14)
[2019-06-13] MEDS: rOPINIRole 1 MG TABLET. PO SCH ×3 (04:46→20:53)
[2019-06-13] MEDS: oxyCODONE IR 5 MG TABLET PO PRN ×3 (04:46→20:53)
[2019-06-13] MEDS: KETOROLAC 30MG VIAL 30 MG, BUPIVACAINE MPF 0.25% 20 ML, EPINEPHrine 0.5 MG in TOTAL VOL... INT ART SCH (04:50)
[2019-06-13 04:58] LABS: PROTHROMBIN TIME PATIENT 15.1 SEC (11.7-14.0)
[2019-06-13 05:14] VITALS: BP 143/59
[2019-06-13] MEDS: ONDANSETRON PF 4 MG/2 ML VIAL. IV SCH ×3 (06:00→11:52)
[2019-06-13] MEDS ORDERED: GABAPENTIN 100 MG CAPSULE. PO SCH (06:00)
[2019-06-13] MEDS ORDERED: MAGNESIUM HYDROXIDE 2,400 MG/30 ML ORAL.SUSP. PO PRN (06:00)
[2019-06-13] MEDS: ONDANSETRON ODT 4 MG TAB.RAPDIS. PO SCH ×3 (06:00→11:52)
[2019-06-13] MEDS: traMADol 50 MG TABLET PO SCH ×3 (06:11→17:40)
[2019-06-13 06:16] LABS: HEMATOCRIT 32.9 % (36.0-47.0); HEMOGLOBIN 10.7 g/dL (12.0-15.5)
--- NOTE | 2019-06-13 07:04 | NUR ---
In chair, ambulates w/o difficulty w/ walker. Hemovac found laying in bed, small amount of drainage present to Domenico wrap. Dressed w/ pink foam. No active bleeding.
[2019-06-13] MEDS: LEVOTHYROXINE 75 MCG TABLET PO SCH (07:12)
[2019-06-13] MEDS ORDERED: BENZOCAINE/MENTHOL LOZENGE. PO PRN (08:00)
[2019-06-13] MEDS: MONTELUKAST SODIUM 10 MG TABLET. PO SCH (08:30)
[2019-06-13] MEDS: SENNOSIDES/DOCUSATE 8.6/50MG TABLET. PO SCH (08:30)
[2019-06-13] MEDS: DULoxetine HCL 30 MG CAPSULE.DR PO SCH (08:30)
[2019-06-13] MEDS: ASPIRIN CHEWABLE 81 MG TABLET. PO SCH (08:30)
[2019-06-13] MEDS: MELOXICAM 7.5 MG TABLET PO SCH (08:30)
[2019-06-13] MEDS: FERROUS SULFATE 325 MG TABLET. PO SCH ×2 (08:30→17:11)
[2019-06-13] MEDS: LIOTHYRONINE 5 MCG TABLET. PO SCH (08:31)
[2019-06-13] MEDS: MULTIVITAMIN with MINERAL TABLET. PO SCH (08:31)
[2019-06-13] MEDS: ACETAMINOPHEN 500 MG TABLET PO SCH ×3 (08:31→20:53)
[2019-06-13] MEDS ORDERED: ONDANSETRON ODT 4 MG TAB.RAPDIS. PO PRN (12:00)
[2019-06-13] MEDS ORDERED: ONDANSETRON PF 4 MG/2 ML VIAL. IV PRN (12:00)
--- NOTE | 2019-06-13 15:49 | NUR ---
Pharmacy Warfarin Dosing Note S:Pharmacy consulted to assist with anticoagulation therapy started 06/11/19 with target INR: 1.6 - 2.5 O:REUBEN TUTTLE is a 58 year old F with TKA LABS: Last INR: 1.2 Last HGB: 10.7 Last HCT: 32.9 Last PLT: Last dose of 7.5 mg given on 06/12/19 at 1602 Vitamin K given: N Drug Interaction Changes: Same Interacting Drug Ongoing Drug Interactions: DULOXETINE, MELOXICAM A:INR of 1.2 is below desired range. Target range for this patient is: 1.6 - 2.5 P: Warfarin dose: 5 mg Today at 1600 Bridge Therapy: None Next INR due tomorrow Pharmacy anticoagulation service will continue to follow. Breanne Sanchez RPH, 06/13/19 [id number]
[2019-06-13] MEDS ORDERED: BISACODYL 10 MG SUPP.RECT. PR PRN (16:00)
[2019-06-13] MEDS ORDERED: WARFARIN 5 MG TABLET. PO ONE (16:00)
--- NOTE | 2019-06-13 17:20 | PDOC ---
GENERAL General: patient sitting in chair and good pain control currently. awake and alert. Hb 10.7 and INR 1.2. chest clear, heart regular, abdomen benign, right leg dressed with wound vac in place. nv exam leg intact. encouraged therapy. continue same. VITAL SIGNS/I&O Vital Signs/I&O: Vital Signs Date Time Temp Pulse Resp B/P (MAP) Pulse Ox O2 Delivery O2 Flow Rate FiO2 06/13/19 12:11 Room Air 06/13/19 07:12 20 06/13/19 05:14 99.1 67 143/59 (87) 98 99.1 06/12/19 22:15 2.0 I & O 06/12/19 06/12/19 06/13/19 15:00 23:00 07:00 Intake Total 1050 ml 500 ml 800 ml Output Total 100 ml 150 ml 810 ml Balance 950 ml 350 ml -10 ml ALLERGIES Allergies: Allergies Coded Allergies Type Severity Reaction Last Updated Verified Sulfa (Sulfonamide Antibiotics) Allergy Intermediate Hives 06/12/19 Yes levofloxacin Allergy Intermediate nausea 06/12/19 Yes alcohol Adverse Reaction Intermediate 06/12/19 Yes MEDS Medications: Current Medications Medications (Trade) Dose Ordered Sig/Regis Route PRN Reason Start Time Stop Time Status Last Admin Dose Admin Multivitamins (Thera M Plus) 1 tab DAILY PO 06/13/19 09:00 06/13/19 08:31 Senna/Docusate Sodium (Senna Plus) 1 tab DAILY PO 06/13/19 09:00 06/13/19 08:30 Ketorolac Tromethamine 30 mg/Bupivacaine HCl 20 ml/ Epinephrine HCl 0.5 mg/ Miscellaneous 43 ml @ 258 mls/hr Q12H INT ART 06/12/19 18:00 06/13/19 06:09 DC 06/13/19 04:50 Acetaminophen (Tylenol) 1,000 mg Q6H PO 06/13/19 09:00 06/13/19 14:57 Meloxicam (Mobic) 15 mg DAILY PO 06/13/19 09:00 06/13/19 08:30 Tramadol HCl (Ultram) 50 mg Q6H PO 06/13/19 06:00 06/13/19 12:11 Aspirin (Children'S Aspirin) 81 mg DAILY PO 06/13/19 09:00 06/13/19 08:30 Atorvastatin Calcium (Lipitor) 20 mg QHS PO 06/12/19 21:00 06/12/19 21:14 Duloxetine HCl (Cymbalta) 30 mg DAILY PO 06/13/19 09:00 06/13/19 08:30 Levothyroxine Sodium (Synthroid) 75 mcg DAILYAC PO 06/13/19 07:30 06/13/19 07:12 Montelukast Sodium (Singulair) 10 mg DAILY PO 06/13/19 09:00 06/13/19 08:30 Ropinirole HCl (Requip) 1 mg TID PO 06/12/19 21:00 06/13/19 14:56 Liothyronine Sodium (Cytomel) 5 mcg DAILY PO 06/13/19 09:00 06/13/19 08:31 Throat Lozenges (Cepacol Sore Throat Lozenge) 1 jean claude PRN Q2HRS PRN PO SORE THROAT 06/13/19 08:00 06/13/19 08:31 Warfarin Sodium (Coumadin) 5 mg 1X WARF ONCE PO 06/13/19 16:00 06/13/19 16:01 DC 06/13/19 17:12 LAB Lab: Laboratory Tests Test 06/13/19 04:30 Hemoglobin 10.7 g/dL (12.0-15.5) L Hematocrit 32.9 % (36.0-47.0) L Mean Corpuscular Hemoglobin Concent 33 g/dL (31-37) Prothrombin Time 15.1 SEC (11.7-14.0) H Prothrombin Time INR 1.2 (0.8-1.1) H Laboratory Tests 06/13/19 04:30 ANDREA ALY MD Jun 13, 2019 17:20
[2019-06-13 17:41] VITALS: BP 110/66
[2019-06-13] MEDS: ATORVASTATIN CALCIUM 20 MG TABLET PO SCH (20:53)
[2019-06-14] MEDS: ACETAMINOPHEN 500 MG TABLET PO SCH ×4 (02:26→21:27)
[2019-06-14] MEDS: oxyCODONE IR 5 MG TABLET PO PRN ×5 (02:27→21:28)
[2019-06-14 04:23] LABS: HEMATOCRIT 33.5 % (36.0-47.0)
[2019-06-14 04:36] LABS: PROTHROMBIN TIME PATIENT 16.3 SEC (11.7-14.0)
[2019-06-14] MEDS: traMADol 50 MG TABLET PO SCH ×4 (05:28→17:20)
[2019-06-14] MEDS: LEVOTHYROXINE 75 MCG TABLET PO SCH (05:28)
[2019-06-14 06:16] VITALS: BP 117/55
[2019-06-14] MEDS: FERROUS SULFATE 325 MG TABLET. PO SCH ×2 (07:30→17:00)
[2019-06-14] MEDS: LIOTHYRONINE 5 MCG TABLET. PO SCH (07:30)
[2019-06-14] MEDS: SENNOSIDES/DOCUSATE 8.6/50MG TABLET. PO SCH (07:30)
[2019-06-14] MEDS: MULTIVITAMIN with MINERAL TABLET. PO SCH (07:31)
[2019-06-14] MEDS: rOPINIRole 1 MG TABLET. PO SCH ×3 (07:31→21:26)
[2019-06-14] MEDS: MELOXICAM 7.5 MG TABLET PO SCH (07:31)
[2019-06-14] MEDS: MONTELUKAST SODIUM 10 MG TABLET. PO SCH (07:31)
[2019-06-14] MEDS: ASPIRIN CHEWABLE 81 MG TABLET. PO SCH (07:32)
[2019-06-14] MEDS: DULoxetine HCL 30 MG CAPSULE.DR PO SCH (07:32)
--- NOTE | 2019-06-14 08:46 | PDOC ---
GENERAL General: vss and afebrile. awake and alert. pain more this am. Hb 11..0. INR 1.3. chest clear, heart regular, abdomen benign, knee with wound vac. continue ther apy/anticoagulation. VITAL SIGNS/I&O Vital Signs/I&O: Vital Signs Date Time Temp Pulse Resp B/P (MAP) Pulse Ox O2 Delivery O2 Flow Rate FiO2 06/14/19 07:31 97 Room Air 06/14/19 06:16 97.9 73 20 117/55 (75) 2.0 97.9 I & O 06/13/19 06/13/19 06/14/19 14:59 22:59 06:59 Intake Total 480 ml 480 ml Output Total 0 ml Balance 480 ml 480 ml 0 ml ALLERGIES Allergies: Allergies Coded Allergies Type Severity Reaction Last Updated Verified Sulfa (Sulfonamide Antibiotics) Allergy Intermediate Hives 06/12/19 Yes levofloxacin Allergy Intermediate nausea 06/12/19 Yes alcohol Adverse Reaction Intermediate 06/12/19 Yes MEDS Medications: Current Medications Medications (Trade) Dose Ordered Sig/Regis Route PRN Reason Start Time Stop Time Status Last Admin Dose Admin Multivitamins (Thera M Plus) 1 tab DAILY PO 06/13/19 09:00 06/14/19 07:31 Senna/Docusate Sodium (Senna Plus) 1 tab DAILY PO 06/13/19 09:00 06/14/19 07:30 Acetaminophen (Tylenol) 1,000 mg Q6H PO 06/13/19 09:00 06/14/19 07:31 Meloxicam (Mobic) 15 mg DAILY PO 06/13/19 09:00 06/14/19 07:31 Aspirin (Children'S Aspirin) 81 mg DAILY PO 06/13/19 09:00 06/14/19 07:32 Duloxetine HCl (Cymbalta) 30 mg DAILY PO 06/13/19 09:00 06/14/19 07:32 Montelukast Sodium (Singulair) 10 mg DAILY PO 06/13/19 09:00 06/14/19 07:31 Liothyronine Sodium (Cytomel) 5 mcg DAILY PO 06/13/19 09:00 06/14/19 07:30 Warfarin Sodium (Coumadin) 5 mg 1X WARF ONCE PO 06/13/19 16:00 06/13/19 16:01 DC 06/13/19 17:12 LAB Lab: Laboratory Tests Test 06/14/19 04:05 Hemoglobin 11.0 g/dL (12.0-15.5) L Hematocrit 33.5 % (36.0-47.0) L Mean Corpuscular Hemoglobin Concent 33 g/dL (31-37) Prothrombin Time 16.3 SEC (11.7-14.0) H Prothrombin Time INR 1.3 (0.8-1.1) H Laboratory Tests 06/14/19 04:05 ANDREA ALY MD Jun 14, 2019 08:46
--- NOTE | 2019-06-14 10:20 | NUR ---
Pharmacy Warfarin Dosing Note S:Pharmacy consulted to assist with anticoagulation therapy started 06/11/19 with target INR: 1.6 - 2.5 O:REUBEN TUTTLE is a 58 year old F with TKA LABS: Last INR: 1.3 Last HGB: 11 Last HCT: 33.5 Last PLT: -- Last dose of 5 mg given on 06/13/19 at 1712 Vitamin K given: N Drug Interaction Changes: Same Interacting Drug Ongoing Drug Interactions: DULOXETINE, MELOXICAM A:INR of 1.3 is below desired range. Target range for this patient is: 1.6 - 2.5 P: Warfarin dose: 5 mg Today at 1600 Bridge Therapy: None Next INR due 06/15/19. Pharmacy anticoagulation service will continue to follow. SALLY FRANCE RPH, 06/14/19 1029
--- NOTE | 2019-06-14 13:11 | NUR ---
Patients ANGELINA dressing appeared this morning with 75% of it covered in dark/dry blood. AARON Ulysses stated to change the dressing today so we can monitor the drainage for a day and she can go home tomorrow with a clean one. ANGELINA dressing changed around 1230 without any complications or concerns noted. Incision appears intact with no signs of dehiscence or infection noted. ANGELINA working properly with green light flashing. Will monitor
[2019-06-14] MEDS ORDERED: WARFARIN 5 MG TABLET. PO ONE (16:00)
[2019-06-14 17:22] VITALS: BP 139/74
[2019-06-14] MEDS: ATORVASTATIN CALCIUM 20 MG TABLET PO SCH (21:27)
[2019-06-15] MEDS: traMADol 50 MG TABLET PO SCH ×3 (00:06→11:49)
[2019-06-15] MEDS: ACETAMINOPHEN 500 MG TABLET PO SCH ×3 (02:57→16:04)
[2019-06-15] MEDS: oxyCODONE IR 5 MG TABLET PO PRN ×4 (02:59→16:05)
[2019-06-15] MEDS: LEVOTHYROXINE 75 MCG TABLET PO SCH (06:04)
[2019-06-15 06:12] VITALS: BP 120/63
[2019-06-15] MEDS: FERROUS SULFATE 325 MG TABLET. PO SCH (07:55)
[2019-06-15] MEDS: DULoxetine HCL 30 MG CAPSULE.DR PO SCH (07:55)
[2019-06-15] MEDS: LIOTHYRONINE 5 MCG TABLET. PO SCH (07:55)
[2019-06-15 07:56] LABS: PROTHROMBIN TIME PATIENT 16.5 SEC (11.7-14.0)
[2019-06-15] MEDS: MULTIVITAMIN with MINERAL TABLET. PO SCH (07:56)
[2019-06-15] MEDS: MELOXICAM 7.5 MG TABLET PO SCH (07:56)
[2019-06-15] MEDS: SENNOSIDES/DOCUSATE 8.6/50MG TABLET. PO SCH (07:56)
[2019-06-15] MEDS: MONTELUKAST SODIUM 10 MG TABLET. PO SCH (07:56)
[2019-06-15] MEDS: ASPIRIN CHEWABLE 81 MG TABLET. PO SCH (07:57)
[2019-06-15] MEDS: rOPINIRole 1 MG TABLET. PO SCH ×2 (08:01→14:24)
[2019-06-15] MEDS ORDERED: MAGNESIUM CITRATE 296 ML SOLUTION. PO ONE (08:15)
[2019-06-15 08:28] LABS: HEMATOCRIT 34.9 % (36.0-47.0); HEMOGLOBIN 11.4 g/dL (12.0-15.5)
--- NOTE | 2019-06-15 09:07 | PATHOLOGY ---
[facility] Accession Number: [id number] . 01 Material submitted: . knee - LEFT KNEE BONE AND SOFT TISSUE. Modifiers: left . 01 Clinical history: . Primary osteoarthritis of left knee . 02 Diagnosis: Segments of bone and soft tissue, left total knee arthroplasty: - Degenerative arthritis. . (JPM:mml; 06/14/2019) M 06/14/2019 1643 Local . 02 Electronically signed: . Leighton Francisco MD, Pathologist NPI- [id number] . 01 Gross description: . The specimen is received in formalin, labeled "Aureliano Anjelica, left knee bone and soft tissue". Received are multiple segments of bone, including the tibial plateau, admixed with soft tissue and meniscus measuring 10.7 x 9.6 x 2.8 cm in aggregate dimensions. The articular surfaces are smooth to granular in appearance with evidence of eburnation. No distinct nodules or lesions are noted grossly. The specimen is submitted representatively in cassette A1, following decalcification. ([facility]; 06/12/2019) QA/[facility] 06/12/2019 1732 Local . 02 Pathologist provided ICD-10: M17.12 . 02 CPT . 814245, 270660 Specimen Comment: A courtesy copy of this report has been sent to [phone] Specimen Comment: Report sent to Performed at: 01 [facility] [address] [facility] [address] [place], [place] [id number] MD Karel Lawton MD Phone: [phone] Performed at: [address] [facility] [address] [place], [place] [id number] MD Leighton Francisco MD Phone: [phone]
--- NOTE | 2019-06-15 09:37 | NUR ---
Pharmacy Warfarin Dosing Note S:Pharmacy consulted to assist with anticoagulation therapy started 06/11/19 with target INR: 1.6 - 2.5 O:REUBEN TUTTLE is a 59 year old F with TKA LABS: Last INR: 1.4 Last HGB: 11.4 Last HCT: 34.9 Last PLT: Last dose of 5 mg given on 06/14/19 at 1632 Vitamin K given: N Drug Interaction Changes: Same Interacting Drug Ongoing Drug Interactions: DULOXETINE, MELOXICAM A:INR of 1.4 is below desired range. Target range for this patient is: 1.6 - 2.5 P: Warfarin dose: 5 mg Prior to Discharge Bridge Therapy: None Next INR due 06/18/19. Pharmacy anticoagulation service will continue to follow. SALLY FRANCE RPH, 06/15/19 0937
[2019-06-15] MEDS ORDERED: WARF-78 PO (11:23)
[2019-06-15] MEDS ORDERED: WARFARIN 5 MG TABLET. PO ONE (14:00)
[2019-06-15 14:28] VITALS: BP 130/54
--- NOTE | 2019-06-15 14:29 | PDOC ---
PROGRESS NOTES Subjective Subjective Problems overnight: Getting up and around for shower pain controlled Objective Vital Signs Vital Signs Date Time Temp Pulse Resp B/P (MAP) Pulse Ox O2 Delivery O2 Flow Rate FiO2 06/15/19 13:00 20 06/15/19 08:00 Room Air 06/15/19 06:12 98.5 74 120/63 (82) 94 98.5 06/15/19 02:59 2.0 Physical Exam Knee floresita dressing intact with good suction distal neurovascular status intact good early range of motion and stability Labs Laboratory Tests Test 06/14/19 04:05 06/15/19 06:25 Hemoglobin 11.0 g/dL (12.0-15.5) 11.4 g/dL (12.0-15.5) Hematocrit 33.5 % (36.0-47.0) 34.9 % (36.0-47.0) Mean Corpuscular Hemoglobin Concent 33 g/dL (31-37) 33 g/dL (31-37) Prothrombin Time 16.3 SEC (11.7-14.0) 16.5 SEC (11.7-14.0) Prothromb Time International Ratio 1.3 (0.8-1.1) 1.4 (0.8-1.1) Laboratory Tests Test 06/15/19 06:25 Hemoglobin 11.4 g/dL (12.0-15.5) Hematocrit 34.9 % (36.0-47.0) Mean Corpuscular Hemoglobin Concent 33 g/dL (31-37) Prothrombin Time 16.5 SEC (11.7-14.0) Prothromb Time International Ratio 1.4 (0.8-1.1) Assessment Assessment POD# 3 total knee arthroplasty Plan Plan of [facility] with home health today prescriptions written along with discharge orders TASHA SANCHEZ MD Jun 15, 2019 14:29
[2019-06-15] MEDS ORDERED: OXYC5CAP PO (14:32)
--- NOTE | 2019-06-15 14:34 | SNU/HH DC ---
DISCHARGE WITH HOME HEALTH DISCHARGE INFORMATION: Condition on Discharge: Stable CODE STATUS: Code Status: Full HOME HEALTH: Face to Face: I certify this patient is under my care and that I, or a nurse practitioner or physician's surgeon's assistant working with me, had a face to face encounter that meets the physician face to face encounter requirements with this patient on [06/15/2019]. Medical Complications: S/P Joint Replacement Senior Care For: Assess & Educate Safety RN For Eval/Treatment: Yes Physical Therapy For: Evalulation/Treatment Pt Meets Homebound Status: Limited distance walking POST DISCHARGE ORDERS: Activity Instructions for Disc: Walk in house (weightbearing as tolerated walker for support as necessary) Weight Bearing Status after Di: No restrictions, As tolerated Bathing Instructions: Shower-keep dressing dry, No Tub Bath until see DIET AFTER DISCHARGE: Regular Wound/Incision Care: Ice to area for comfort, Keep wound/cast CDI, Keep wound elevated, Do not change dressing Other wound/incision instructi: keep dressing clean dry if becomes saturated call Dr. Escalante's office CHECKS AFTER DISCHARGE: Comment: pt/inr to be drawn every tuesday starting 06/18; FOLLOW-UP: Follow Up With: post op appt with Dr. Escalante is 06/25/19 at 0900 Warfarin Follow UP: [facility] managing coumadin ??? call [phone] TREATMENT/EQUIPMENT ORDERS: Adaptive Equipment Issued: None CERTIFICATION STATEMENT: Certification Statement: Certification Statement: Based on the above finding, I certify that this patient is confined to the home and needs intermittent prison care, physical therapy and/or speech therapy, or continues to need occupational therapy.~ This patient is under my care, and I have initiated the establishment of the plan of care.~ This patient will be followed by myself or a community physician who will periodically review the plan of care. Home Meds Active Scripts Ibuprofen (IBUPROFEN) 800 Mg Tablet, 800 MG PO PRN Q6HRS PRN for INFLAMMATION, #30 TAB 1 Refill Prov:BEBO HUGHES Jr, MD 12/10/16 Reported Medications Warfarin Sodium (COUMADIN) 5 Mg Tablet, 5 MG PO DAILYWSUP for BLOOD THINNER, #30 TAB 0 Refills 06/15/19 Aspirin (ASPIRIN) 81 Mg Tab.chew, 81 MG PO DAILY for blood thinner, TAB.CHEW 05/30/19 Hydrocodone/Apap 7.5-325 (NORCO 7.5-325 TABLET) 1 Each Tablet, 1 TAB PO PRN Q6HRS PRN for PAIN, TAB 0 Refills 05/30/19 Metronidazole (METROGEL-VAGINAL) 70 Gm Gel.w.appl, 70 GM VG PRN DAILY PRN for DISCOMFORT, EACH 03/24/18 Montelukast Sodium (MONTELUKAST SODIUM TABLET ) 10 Mg Tablet, 10 MG PO DAILY for FOR ASTHMA, #30 TAB 0 Refills 03/24/18 Acetaminophen (TYLENOL) 325 Mg Tablet, 650 MG PO PRN TID PRN for PAIN, TAB 03/24/18 Multivit With Calcium,Iron,Min (MULTIPLE VITAMINS FOR WOMEN) 1 Each Tablet, 1 EACH PO DAILY for SUPPLEMENT, TAB 03/24/18 Atorvastatin Calcium (ATORVASTATIN CALCIUM) 20 Mg Tablet, 20 MG PO DAILY for FOR CHOLESTEROL, #30 TAB 0 Refills 12/08/16 Liothyronine Sodium (LIOTHYRONINE SODIUM) 25 Mcg Tablet, 5 MCG PO DAILY for thyroid function, TAB 12/08/16 Duloxetine Hcl (CYMBALTA) 30 Mg Capsule.dr, 30 MG PO DAILY for depression, CAP 08/13/16 Lansoprazole (LANSOPRAZOLE) 30 Mg Capsule.dr, 30 MG PO DAILY for stomach acid, CAP 08/13/16 Ropinirole Hcl (REQUIP) 1 Mg Tablet, 1 MG PO TID for restless leg, TAB 08/13/16 Meloxicam (MELOXICAM) 15 Mg Tablet, 15 MG PO DAILY for arthritis, TAB 08/13/16 Levothyroxine Sodium (LEVOTHYROXINE SODIUM) 75 Mcg Tablet, 75 MCG PO DAILYAC for THYROID SUPPLEMENT, #30 TAB 0 Refills 08/13/16 TASHA ESCALANTE MD Jun 15, 2019 14:34
--- NOTE | 2019-06-15 16:51 | NUR ---
reviewed discharge instructions with patient. script for pain pill, home health and op therapy in 2 weeks given to patient. questions answered. coumadin dose given for today, and pills for next 30 days given. questions answered. floresita dressing was changed yesterday. new floresita dressing given for patient if needed for home health given to patient. awaiting ride to home.
--- NOTE | 2019-06-15 17:36 | PDOC ---
GENERAL General: vss and afebrile. awake and alert. more pain during therapy yesterday but feels little better this am. chest clear, heart regular, abdomen benign. INR 1.4 and Hb 11.4. continue present. VITAL SIGNS/I&O Vital Signs/I&O: Vital Signs Date Time Temp Pulse Resp B/P (MAP) Pulse Ox O2 Delivery O2 Flow Rate FiO2 06/15/19 16:05 20 06/15/19 14:28 97.5 77 130/54 (79) 97 Room Air 97.5 06/15/19 02:59 2.0 ALLERGIES Allergies: Allergies Coded Allergies Type Severity Reaction Last Updated Verified Sulfa (Sulfonamide Antibiotics) Allergy Intermediate Hives 06/12/19 Yes levofloxacin Allergy Intermediate nausea 06/12/19 Yes alcohol Adverse Reaction Intermediate 06/12/19 Yes MEDS Medications: Current Medications Medications (Trade) Dose Ordered Sig/Regis Route PRN Reason Start Time Stop Time Status Last Admin Dose Admin Magnesium Citrate (Citroma) 296 ml 1X ONCE PO 06/15/19 08:15 06/15/19 08:16 DC 06/15/19 11:49 Warfarin Sodium (Coumadin) 5 mg 1X WARF ONCE PO 06/15/19 14:00 06/15/19 14:01 DC 06/15/19 13:27 LAB Lab: Laboratory Tests Test 06/15/19 06:25 Hemoglobin 11.4 g/dL (12.0-15.5) L Hematocrit 34.9 % (36.0-47.0) L Mean Corpuscular Hemoglobin Concent 33 g/dL (31-37) Prothrombin Time 16.5 SEC (11.7-14.0) H Prothrombin Time INR 1.4 (0.8-1.1) H Laboratory Tests 06/15/19 06:25 ANDREA ALY MD Jun 15, 2019 17:36
--- NOTE | 2019-06-16 00:01 | DS ---
DATE OF DISCHARGE: 06/15/2019 PRINCIPAL DIAGNOSIS: Degenerative joint disease of left knee. PROCEDURE: Left total knee arthroplasty. DISPOSITION MEDICATIONS: Include oxycodone 5 mg p.o. q.4 hours p.r.n., Coumadin as directed by anticoagulation clinic. Stopped her previous hydrocodone, ibuprofen, and meloxicam. DISPOSITION: Home with home health. ACTIVITY: Weightbearing as tolerated, standard total knee precautions. Maintain ANGELINA dressing, call if saturated. Call if any uncontrolled pain, fever, chills, wound redness, or other problems. BRIEF DESCRIPTION OF HOSPITAL COURSE: The patient underwent uncomplicated total knee arthroplasty. Postoperatively, she was limited in terms of her ambulation and transfers, necessitating ongoing hospitalization with physical therapy and maintained good stability of her vital signs and medical condition. Pain control was good and after physical therapy on postoperative day #3, was discharged to home with home health. Followup with Dr. Escalante. ATSHA ESCALANTE MD DR: BELTRAN/edu JOB#: [id number] / [id number]
== END 2019-06-15 17:45 | disposition home health service (06) | DRG 470 ==
LOC: SURG 07:53 → 4 SOUTHEST 15:51 → OBSVTOIN 06-14 14:25
PROVIDERS: ADMIT Orthopaedic Surgery; ATTEND Orthopaedic Surgery
PROC: 0SRD0JZ Replacement of Left Knee Joint with Synthetic Substitute, Open Approach (ICD-10-PCS; principal; 2019-06-12 09:30)
DX: M17.12 Unilateral primary osteoarthritis, left knee (principal); Z96.651 Presence of right artificial knee joint; Z80.3 Family history of malignant neoplasm of breast; Z82.61 Family history of arthritis; Z87.891 Personal history of nicotine dependence; Z90.710 Acquired absence of both cervix and uterus; Z96.653 Presence of artificial knee joint, bilateral; F32.9 Major depressive disorder, single episode, unspecified; M19.90 Unspecified osteoarthritis, unspecified site
CPT/HCPCS: 36415; 73560; 82962; 85014; 85018; 85610; 85730; 86850; 86900; 86901; 88305; 88311; C1713; G0378; G0379; J0171; J0696; J0780; J1100; J1170; J1885; J2001; J2270; J2370; J2405; J2704; J2795; J3010; J3490; J7030; J7120; Q0162; 97116; 97150; 97530; 97535; C1769

== ENCOUNTER → 2019-06-28 | Outpatient (CLI) | payer OTHER ==
[2019-06-15 14:28] VITALS: BP 130/54
[~2019-06-28] MED LIST changes: -ACETAMINOPHEN 500 MG TABLET PO PRN; -IV RINGERS,LACTATED 1000ML 1,000 ML IV SCH; -LIDOCAINE 1% PF 2 ML VIAL. ID PRN; -MORPHINE SULFATE 5 MG, KETOROLAC 30MG VIAL 30 MG, ROPIVacaine 0.5% PF 60 ML, EPINEPHrin... INT ART ONE; -ONDANSETRON PF 4 MG/2 ML VIAL. IV PRN; +OXYC5CAP PO; -PROCHLORPERAZINE 10 MG/2 ML VIAL. IV PRN; -TRANEXAMIC ACID 1,000 MG in IV NS 50ML -- 1ST BAG INJ ONE; +WARF-78 PO; -fentaNYL PF VIAL 100 MCG/2 ML VIAL IV PRN
--- NOTE | 2019-06-28 14:02 | KCIC ---
MRI Lumbar Spine without contrast History: Left lumbar radiculopathy, left posterior leg pain for several months Technique: Multiplanar, multi sequential noncontrast MR imaging was performed of the lumbar spine. Comparison: None Findings: Lumbar vertebral body stature is mostly preserved other than inferior L4 Schmorl's node. There is approximate 1.9 cm cc focus of decreased T1 and T2 signal of the anterior L2 vertebral body, isointense on STIR sequence. There is also small focus of T1 hypointense signal about 0.6 cm of the posterior L3 vertebral body, hyperintense on the STIR sequence. There are small typical hemangiomas such as of S2 and L5. Conus terminates near the superior aspect L2. There is fairly severe degenerative disc disease at L4-5 and minimally L3-4 and L5-S1, mild disc desiccation L2-3. L1-L2: There is facet degenerative change and buckling of the ligamentum flavum. Neural foramina and spinal canal are adequate. L2-L3: There is prominence of posterior epidural fat. There is moderate facet degenerative change and mild buckling of the ligamentum flavum. Neural foramina and spinal canal are adequate. L3-L4: There is prominence of posterior epidural fat centrally. There is mild buckling of the ligamentum flavum and mqip-[id number] facet degenerative change. There is minimal disc osteophyte complex and bulge. There is very mild narrowing of the inferior left neural foramen by disc osteophyte complex, right neural foramen overall adequate. Spinal canal is adequate. L4-L5: There is minimal disc osteophyte complex and bulge somewhat more eccentric to the left lateral recess. There is mild prominence of posterior epidural fat centrally. There is mild buckling of the ligamentum flavum and facet degenerative change. There is mild to moderate narrowing of the far left lateral recess. Right neural foramen is adequate. Left neural foramen is not significantly narrowed, disc osteophyte complex near the undersurface proximal extraforaminal left L4 nerve root without significant displacement. L5-S1: There is negligible posterior bulge without impingement of the descending S1 nerve roots, spinal canal overall adequate. There is mild facet degenerative change. There is mild neural foramina compromise, disc osteophyte complex near the undersurfaces of the exiting L5 nerve roots bilaterally without displacement. Impression: 1. There is [id number] left lateral recess stenosis at L4-5. There is degenerative disc disease and spondylosis greatest at L4-5. There is mild neural foramina compromise as stated. 2. There is focus of nonspecific marrow signal change of the L2 vertebral body suggestive of underlying sclerotic lesion although not associated with significant STIR hyperintense signal. There is also small focus of marrow signal change of the posterior L2 vertebral body, small more aggressive marrow replacing lesion (metastatic disease) not excluded although could be an atypical hemangioma. Correlation with any history of malignancy is advised. Potentially bone scan could be beneficial to assess for abnormal radiotracer activity and to assess for other lesions. Electronically signed by: Tez Nguyen MD (06/28/2019 1:59 PM) [id number]
== END | disposition home or self-care (01) ==
LOC: KCIC MRI 13:01
PROVIDERS: ATTEND Orthopaedic Surgery
DX: M47.26 Other spondylosis with radiculopathy, lumbar region (principal); M51.16 Intervertebral disc disorders with radiculopathy, lumbar region; M48.061 Spinal stenosis, lumbar region without neurogenic claudication; M51.46 Schmorl's nodes, lumbar region; M47.818 Spondylosis without myelopathy or radiculopathy, sacral and sacrococcygeal region; M53.3 Sacrococcygeal disorders, not elsewhere classified; M25.78 Osteophyte, vertebrae; Z96.652 Presence of left artificial knee joint
CPT/HCPCS: 72148

== ENCOUNTER → 2019-08-07 | Outpatient (CLI) | payer OTHER ==
[~2019-08-07] MED LIST changes: +CHOL3000 PO; +LIOT5TAB4 PO; +MELA3TAB43 PO; +OXYC1TAB19 PO; +SENN-200 PO
--- NOTE | 2019-08-07 12:37 | PAIN ---
DATE OF SERVICE: 08/07/2019 INITIAL CONSULTATION FOR PAIN CLINIC CHIEF COMPLAINT: Low back and left lower extremity pain. HISTORY OF PRESENT ILLNESS: This is a 59-year-old female who presents with history of pain in the low back, left lower extremity for about 2 years or more. The patient reports she has been getting worse over the past year, across the low back bilaterally with back pain radiating to posterior gluteus, posterior thigh, lateral thigh, anterior thigh, medial thigh, medial lower leg as well as into the calf posteriorly and in the posterior thigh. The patient reports it is worse with walking, standing, changing positions, especially getting up from a seated position to notice it more significantly in the leg. The patient reports it awakens her from sleep at night at least once or twice, does not affect her bowel or bladder control, but does affect her ability to walk. She is not using any assistive devices, however. The patient reports the pain is radiating in the left leg, aching in the back, throbbing and shooting at times in the leg as well, can be exacerbated by prolonged sitting more than about 20 minutes, but most times, better with sitting or resting, worse with walking, standing, changing positions, especially again getting up from a seated position. The patient did have an MRI scan of the lumbar spine dated 06/28/2019 showing [id number] left lateral recess stenosis at L4-L5 with degenerative disk disease and spondylosis, greatest at L4-L5 with mild neural foraminal compromise at L4-L5 as well as mildly at L5-S1. The patient has tried exercising, stretching and strengthening on her own without significant decrease in pain. She has not had any formal physical therapy, chiropractic treatments or other modalities. She has tried oxycodone as well as Tylenol, but oxycodone does decrease the pain, but only by about 20%. The patient reports no loss of motor function, but significant fatigability of the left leg. With activity, the patient reports her right leg has no significant pain and disability rating from 0-10, 10 being the worst, is an 8 with family home responsibilities and recreation, 7 with social activity, 8 with occupation, 7 with self-care and 6 with life support activities. PAST MEDICAL HISTORY: Significant for hypothyroidism; anemia; shortness of breath, quit smoking in year 1999; hyperlipidemia; gastroesophageal reflux; arthritis; some stress incontinence. PREVIOUS SURGERY: Include a cystocele, tonsillectomy, cholecystectomy, tubal ligation, bladder sling, total hysterectomy, left total knee replacement in 2020, right total knee replacement in 2018. CURRENT MEDICATIONS: Include ReQuip, acetaminophen, levothyroxine, meloxicam, lansoprazole, Cymbalta, atorvastatin, melatonin, Percocet, senna, cholecalciferol, multivitamins, montelukast, levothyroxine, daily baby aspirin, metronidazole. ALLERGIES: THE PATIENT IS ALLERGIC TO SULFA. FAMILY HISTORY: Significant for breast cancer and heart disease. SOCIAL HISTORY: The patient does not drink alcohol, does not smoke, quit smoking many years ago. Does not use any illegal, illicit or recreational drugs. 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 REVIEW OF SYSTEMS: The patient's review of systems is positive for those items mentioned in history of present illness. All systems reviewed and otherwise negative. It is complete, full and well documented on the patient's chart. PHYSICAL EXAMINATION: VITAL SIGNS: The patient's blood pressure is 151/86, pulse 77, respirations 20, temperature 98.5 degrees Fahrenheit, height is 5 feet 10-1/2 inches, weight is 279 pounds. GENERAL: The patient is awake, alert, oriented, appropriate, very pleasant demeanor. HEENT: Head shows normocephalic, atraumatic. Extraocular movements are intact and symmetrical. Oral cavity: Mucous membranes moist and pink. Dentition is intact. NECK: Shows anterior throat supple without palpable lymphadenopathy noted. Swallow reflex symmetrical. CHEST: Shows normal on inspection. Breath sounds are clear bilaterally. HEART: Shows S1, S2 clear. No murmurs auscultated. ABDOMEN: Soft, obese, nontender, nondistended. No palpable organomegaly is noted. No rebound or guarding demonstrated. BACK: Shows spine grossly in the midline. Normal appearing thoracic kyphosis, cervical lordotic curvature and lumbar lordotic curvature. Lumbar paraspinous muscle shows symmetrical with inspection, on palpation shows some moderate tenderness diffusely bilaterally going diffusely without significant radiation demonstrated throughout the upper, middle and lower distribution of paraspinous muscles. No tenderness over the spinous processes, sacrum or sacroiliac regions. The patient does have a small lipoma to the right of midline on the right at about the upper to mid lumbar distribution, which is very superficial and nontender. The patient has good rotational motion of lumbar spine laterally greater than 10 degrees right and left as well as extension with some mild tenderness with forward flexion with decreased tenderness, but fully performed in all planes without significant pain reported. EXTREMITIES: The patient's lower extremities show deep tendon reflexes at 1+ in the patellar and tendo-calcaneus tendons. The patient has well-healed surgical scarring on both the knees. Motor exam is strong with 5/5 dorsiflexion, extension on the right, 4/5 on the left especially with quadriceps and hamstring flexion which shows some significant tenderness with resistance on the left side, but only on the left, not the right. Peripheral pulses are 1+ posterior tibia. No peripheral edema is noted. Lower extremities are warm and dry to touch, equal in color and appearance. Straight leg raise noted to be mildly positive on the left at about 45 degrees, decreased with knee flexion, right side is negative. Gaenslen's and Rachid's maneuvers are negative bilaterally as well. The patient is able to stand, stand on her toes without significant difficulty or loss of balance, walks with mostly normal appearing gait, does require the use of both the arms of the chair to get up from a seated position secondary to pain in her low back and left leg. Not using any assistive devices once again. SKIN: The patient's skin shows warm and dry, good turgor. No edema. No sores, rashes or bruising throughout. IMPRESSION: 1. This is a 59-year-old female with 2+ year history of low back and left lower extremity pain in a radicular fashion. 2. MRI scan of lumbar spine as noted. 3. Arthritis. 4. History of cigarette smoking. PLAN: Options were discussed with the patient including conservative medical managements, physical therapies and interventional techniques. She would like to pursue interventional techniques. We discussed a lumbar epidural steroid injection using description as well as anatomical models to describe the procedure. The patient will wait for preauthorization with her insurance provider and will have her return for a translaminar lumbar epidural steroid injection at L4-L5 level for her L4-L5 left radiculopathy. In the meantime, the patient will maintain with stretching and strength exercises. We will try Medrol Dosepak in the meantime as well. The patient was given instruction as well as side effects to be aware of with the medication and we will follow up in approximately 1 week as scheduled for lumbar epidural steroid injection at that time. NUBIA SUAZO MD DR: DOMIN[facility]/edu JOB#: [id number] / [id number] ANDREA Moore MD
== END ==
LOC: PNCL 11:08
PROVIDERS: ATTEND Anesthesiology
DX: M19.072 Primary osteoarthritis, left ankle and foot (principal); M79.661 Pain in right lower leg; M54.5 Low back pain; Z87.891 Personal history of nicotine dependence
CPT/HCPCS: G0463

== ENCOUNTER → 2019-08-14 | Outpatient (CLI) | payer OTHER ==
[~2019-08-14] MED LIST changes: +IOHEXOL 180 MG/ML 10 ML VIAL. ONE; +methylPREDNISolone ACETATE 40 MG/ML VIAL. ONE; +methylPREDNISolone ACETATE 80 MG/ML VIAL. ONE
--- NOTE | 2019-08-14 11:35 | PAIN ---
DATE OF SERVICE: 08/14/2019 PROGRESS NOTE FOR PAIN CLINIC DIAGNOSES: Lumbar radiculopathy with lumbar degenerative disk disease and lumbar spinal stenosis. HISTORY OF PRESENT ILLNESS: The patient is a 59-year-old female who returns for followup status post initial evaluation and preauthorization for a lumbar epidural steroid injection. The patient has obtained that now with her insurance provider and would like to proceed. The patient still reports pain in the low back, left lower extremity as it was previously. No new motor or sensory deficits. The patient did try Medrol Dosepak, which helped temporarily for about a week, decreased the pain by about 30%. The patient reports the pain has returned now in the low back, left posterior hip, lateral thigh, anterior thigh and medial thigh, medial lower leg and left knee. The patient reports it is aching, dull and tight across the back and the leg. She rates it as a 6 on a scale of 10 at its worst over the past week, 5 on average, 0 at its least and is a 5 today. The patient reports no new motor or sensory deficits, no new bowel or bladder incontinence or other complaints. PHYSICAL EXAMINATION: VITAL SIGNS: The patient's blood pressure is 137/108, pulse 98, respirations 18, temperature 98.3 degrees Fahrenheit, height is 5 feet 10 inches, weight is 277 pounds. GENERAL: The patient is awake, alert, oriented, appropriate, very pleasant demeanor. HEENT: Head shows normocephalic, atraumatic. Extraocular movements are intact and symmetrical. Oral cavity shows mucous membranes are moist and pink. Dentition is intact. NECK: Shows anterior throat supple without palpable lymphadenopathy noted. Swallow reflex symmetrical. CHEST: Shows normal on inspection. Breath sounds are clear bilaterally. HEART: Shows S1 and S2 clear. No murmurs auscultated. ABDOMEN: Soft, nontender, nondistended. BACK: Shows spine grossly in the midline. Normal appearing thoracic kyphosis and minor flattening of lumbar lordotic curvature. Lumbar paraspinous muscle shows symmetrical on inspection, on palpation shows some moderate tenderness diffusely, but only diffusely without significant radiation. EXTREMITIES: The patient's lower extremities showed deep tendon reflexes at 1+ in the patellar and tendo calcaneus tendons. Motor exam is strong with approximately 4 on a scale of 5 on the left and 5/5 on the right. Peripheral pulses are 1+ to posterior tibia. No peripheral edema is noted bilaterally. Options were discussed with the patient. The patient's old chart was reviewed as her current medication regimen updated. Current review of systems updated today as well. We will proceed with a lumbar epidural steroid injection today with fluoroscopic guidance. Risks were again discussed including, but not limited to bleeding, infection, possibility of epidural hematoma, subsequent neurological compromise, dural puncture, headaches, spinal cord and/or nerve damage, side effects of steroid medication and poor results regarding pain control. The patient understands and wished to proceed. The patient will return to clinic in approximately 2 weeks for followup. She was counseled on return appointment, activity level and side effects to be aware of. DIAGNOSES: Lumbar radiculopathy with lumbar degenerative disk disease and lumbar spinal stenosis. PROCEDURE: Lumbar epidural steroid injection, translaminar approach at L4-L5 level using C-arm fluoroscopic guidance under sterile prep and drape using local anesthetic. MEDICATIONS INJECTED: A total of 120 mg Depo-Medrol plus 10 mL of preservative-free normal saline and 2 mL of contrast. CONDITION AT DISCHARGE: Stable. The patient tolerated procedure well, had no complications. NUBIA SUAZO MD DR: DOMINIC/edu JOB#: [id number] / [id number]
== END ==
LOC: PNCL 10:47
PROVIDERS: ATTEND Anesthesiology
DX: M51.16 Intervertebral disc disorders with radiculopathy, lumbar region (principal); M48.061 Spinal stenosis, lumbar region without neurogenic claudication
CPT/HCPCS: 62323; J1030; J1040; Q9965

== ENCOUNTER → 2019-08-28 | Outpatient (CLI) | payer OTHER ==
--- NOTE | 2019-08-28 11:43 | PAIN ---
DATE OF SERVICE: 08/28/2019 PROGRESS NOTE FOR PAIN CLINIC DIAGNOSES: Lumbar radiculopathy with lumbar degenerative disk disease, lumbar spinal stenosis. HISTORY OF PRESENT ILLNESS: The patient is a 59-year-old female who returns for followup status post lumbar epidural steroid injection x 1. The patient reports about a 70% improvement for the first week and now is slowly returning to come back, but still about 50% improvement overall. The patient reports no new motor or sensory deficits, no new bowel or bladder incontinence or other complaints, and very well with activity. She is starting to work again tomorrow, she reports and is looking forward to that. The patient reports still pain in the low back only on the left side than the right, radiating to left posterior gluteus, lateral thigh, anterior thigh, medial thigh. There is aching pain in the back, described as dull and tight, alternating cramping in the leg, on and off in intensity. Generally, it does not awaken her from sleep at night. The patient rates it as a 7 on a scale of 10 at its worst over the past week, 5 on average, 0 at its least and is a 5 today. The patient reports no bowel or bladder incontinence, no new motor or sensory deficits. PHYSICAL EXAMINATION: VITAL SIGNS: The patient's blood pressure 148/98, pulse 87, respirations 18, temperature 97.3 degrees Fahrenheit, height is 5 feet 10 inches, weight is 283 pounds. GENERAL: The patient is awake, alert, oriented, appropriate, very pleasant demeanor. HEENT: Shows normocephalic, atraumatic. Extraocular movements are intact and symmetrical. Oral cavity shows mucous membranes moist and pink. Dentition is intact. NECK: Shows anterior throat supple without palpable lymphadenopathy noted. Swallow reflex symmetrical. CHEST: Shows normal on inspection. Breath sounds clear to auscultation bilaterally. HEART: Shows S1, S2 clear. No murmurs auscultated. ABDOMEN: Soft, nontender, nondistended. No palpable organomegaly is noted. No rebound or guarding demonstrated. BACK: Shows spine grossly in the midline. Normal-appearing thoracic kyphosis and lumbar lordotic curvature. Lumbar paraspinous muscle shows symmetrical on inspection, with palpation shows some moderate tenderness diffusely bilaterally and diffusely without significant radiation. The patient has good rotational motion of lumbar spine, both laterally as well as extension and flexion without significant difficulty. The patient's back shows no tenderness over the spinous processes, sacrum or sacroiliac regions. EXTREMITIES: Lower extremities show deep tendon reflexes at 1+ in patellar and tendo calcaneus tendons. Motor exam is approximately 4 on a scale of 5 on the left and 5/5 on the right with dorsiflexion, extension, quadriceps and hamstring flexion. Peripheral pulses are 1+ in posterior tibia. No peripheral edema is noted bilaterally. Options were discussed with the patient. The patient's old chart was reviewed as her current medication regimen updated. Current review of systems updated today as well. We will proceed with a second in the series of lumbar epidural steroid injection today with fluoroscopic guidance. Risks were again discussed including, but not limited to bleeding, infection, possibility of epidural hematoma, subsequent neurological compromise, dural puncture, headaches, spinal cord and/or nerve damage, side effects of steroid medication and poor results regarding pain control. The patient understands and wished to proceed. The patient will return to clinic in approximately 2 weeks for followup. She was counseled on return appointment, activity level and side effects to be aware of. DIAGNOSES: Lumbar radiculopathy with lumbar degenerative disk disease, lumbar spinal stenosis. PROCEDURE: Lumbar epidural steroid injection, translaminar approach at the L4-L5 level using C-arm fluoroscopic guidance under sterile prep and drape using local anesthetic. MEDICATIONS INJECTED: A total of 120 mg Depo-Medrol plus 10 mL of preservative-free normal saline and 2 mL of contrast. CONDITION AT DISCHARGE: Stable. The patient tolerated the procedure well, had no complications. NUBIA SUAZO MD DR: DOMINIC/edu JOB#: [id number] / [id number]
== END ==
LOC: PNCL 10:12
PROVIDERS: ATTEND Anesthesiology
DX: M51.16 Intervertebral disc disorders with radiculopathy, lumbar region (principal); M48.061 Spinal stenosis, lumbar region without neurogenic claudication
CPT/HCPCS: 62323; J1030; J1040; Q9965

== ENCOUNTER → 2019-09-11 | Outpatient (CLI) | payer OTHER ==
--- NOTE | 2019-09-11 09:24 | PAIN ---
DATE OF SERVICE: 09/11/2019 PROGRESS NOTE FOR PAIN CLINIC DIAGNOSIS: Lumbar radiculopathy with lumbar degenerative disk disease, lumbar spinal stenosis and lumbar spondylosis. HISTORY OF PRESENT ILLNESS: The patient is a 59-year-old female, who returns for followup status post lumbar epidural steroid injection x 2. The patient reports initially about 70% improvement, but now only about 50% improvement overall. The patient reports still significant pain in the low back, not as much in the lower extremities as it was, but still in the lateral thighs and in the anterior thighs at times and in the hips. The patient reports it is mostly in the back at this point, worse with walking, standing and changing positions, better with sitting or lying down, but can awaken her from sleep about every 5 hours or so on an average. The patient reports the pain as an 8 on a scale of 10 at its worst over the past week, 7 on an average, 3 at its least and is a 7 today. The patient reports it is aching, dull, tight, not significantly increased with rotation, but with extension does notice an increase in pain in the low back, but only mildly. The patient reports no new motor or sensory deficits, no new bowel or bladder incontinence or other complaints. PHYSICAL EXAMINATION: VITAL SIGNS: The patient's blood pressure 154/92, pulse 76, respirations 18, temperature 97.9 degrees Fahrenheit, height is 5 feet 10 inches, weight is 284 pounds. GENERAL: The patient is awake, alert, oriented, appropriate, very pleasant demeanor. HEENT: Shows normocephalic, atraumatic. Extraocular movements are intact and symmetrical. Oral cavity: Mucous membranes are moist and pink; dentition is intact. NECK: Shows anterior throat supple without palpable lymphadenopathy noted. Swallow reflex symmetrical. CHEST: Shows normal on inspection. Breath sounds are clear bilaterally. HEART: Shows S1, S2 clear. No murmurs auscultated. ABDOMEN: Soft, nontender and nondistended. No palpable organomegaly is noted. No rebound or guarding demonstrated. BACK: Shows spine grossly in the midline. Normal-appearing thoracic kyphosis and lumbar lordotic curvature. Lumbar paraspinous musculature shows symmetrical on inspection, on palpation shows some moderate tenderness diffusely bilaterally, but only diffusely without significant radiation. The patient has good rotational motion of lumbar spine, both laterally as well as extension and flexion with some moderate tenderness with extension, but not with forward flexion, not with right or left lateral rotation. EXTREMITIES: Lower extremities show deep tendon reflexes are 1+ in the patellar and tendo-calcaneus tendons. Motor exam is approximately 4 on a scale of 5 on the left and 5/5 on the right with dorsiflexion and extension. Peripheral pulses are 1+ posterior tibial. No peripheral edema is noted bilaterally. Options were discussed with the patient. The patient's old chart was reviewed as her current medication regimen updated. Current review of systems updated today as well. We will proceed with a third in the series of lumbar epidural steroid injection today with fluoroscopic guidance. Risks were again discussed including, but not limited to bleeding, infection, possibility of epidural hematoma, subsequent neurological compromise, dural puncture, headaches, spinal cord and/or nerve damage, side effects of steroid medication and poor results regarding pain control. The patient understands and wished to proceed. The patient will return to the clinic in approximately 2 weeks for followup. She was counseled as to the return appointment, activity level and side effects to be aware of. DIAGNOSIS: Lumbar radiculopathy with lumbar degenerative disk disease, lumbar spinal stenosis and spondylosis. PROCEDURE: Lumbar epidural steroid injection, translaminar approach, at the L4-L5 level, using C-arm fluoroscopic guidance under sterile prep and drape using local anesthetic. MEDICATIONS INJECTED: A total of 120 mg Depo-Medrol plus 10 mL of preservative-free normal saline and 2 mL of contrast. CONDITION AT DISCHARGE: Stable. The patient tolerated procedure well, had no complications. NUBIA SUAZO MD DR: DOMINIC/edu JOB#: [id number] / [id number]
== END ==
LOC: PNCL 08:02
PROVIDERS: ATTEND Anesthesiology
DX: M51.16 Intervertebral disc disorders with radiculopathy, lumbar region (principal); M48.061 Spinal stenosis, lumbar region without neurogenic claudication
CPT/HCPCS: 62323; J1030; J1040; Q9965

== ENCOUNTER → 2019-09-21 | Outpatient (CLI) | payer OTHER ==
[~2019-09-21] MED LIST changes: -IOHEXOL 180 MG/ML 10 ML VIAL. ONE; -WARF-78 PO; +WARF5TAB2 PO; -methylPREDNISolone ACETATE 40 MG/ML VIAL. ONE; -methylPREDNISolone ACETATE 80 MG/ML VIAL. ONE
== END | disposition home or self-care (01) ==
LOC: LAB 14:20
PROVIDERS: ATTEND Internal Medicine Pulmonary Disease
DX: Z20.818 Contact with and (suspected) exposure to other bacterial communicable diseases (principal)
CPT/HCPCS: 36415; U0003

== ENCOUNTER → 2019-10-08 | Outpatient (CLI) | payer OTHER ==
[~2019-10-08] MED LIST changes: +BUPIVACAINE MPF 0.25% 10 ML VIAL. ONE; +IOHEXOL 180 MG/ML 10 ML VIAL. ONE; +methylPREDNISolone ACETATE 40 MG/ML VIAL. ONE; +methylPREDNISolone ACETATE 80 MG/ML VIAL. ONE
--- NOTE | 2019-10-08 11:16 | PAIN ---
DATE OF SERVICE: 10/08/2019 PROGRESS NOTE FOR PAIN CLINIC DIAGNOSES: Lumbar radiculopathy with lumbar degenerative disk disease, lumbar spinal stenosis, and lumbar and lumbosacral spondylosis. HISTORY OF PRESENT ILLNESS: The patient is a 59-year-old female, who returns for followup status post lumbar epidural steroid injection x 3. The patient reports only about 20% improvement overall. We discussed her pain and it has changed from more of a radicular component to more of a spondylitic component and the patient has pain across the low back only without radiation in the lower extremities that has seem to clear up after the injections recently, but the pain across the low back, more on the left than the right, present bilaterally, worse with standing, walking, changing positions, sitting for a prolonged period, especially with extension of the lumbar spine and axial loading of the low back. The patient reports pain is a 7 on a scale of 10 at its worst in the past week, 5 on an average, 0 at its least and is a 5 today. The patient reports no new motor or sensory deficits, no new bowel or bladder incontinence. Describes the pain as aching, dull and tight, shooting across the back, but again not radiating to the lower extremities any further. The patient reports no new motor or sensory deficits, awakens her from sleep very rarely, much better with sitting or lying down, but sitting for prolonged periods, greater than about 1 hour, causes the pain to increase significantly. PHYSICAL EXAMINATION: VITAL SIGNS: The patient's blood pressure is 136/74, pulse 77, respirations 18, temperature 97.6 degrees Fahrenheit, height is 5 feet 10 inches, weight is 275 pounds. GENERAL: The patient is awake, alert, oriented, appropriate, very pleasant demeanor. HEENT: Shows normocephalic, atraumatic. Extraocular movements are intact and symmetrical. Oral cavity: Mucous membranes moist and pink; dentition is intact. NECK: Shows anterior throat supple without palpable lymphadenopathy noted. Swallow reflex symmetrical. CHEST: Shows normal on inspection. Breath sounds are clear bilaterally. No rales, rhonchi or wheezes auscultated. HEART: Shows S1, S2 clear. ABDOMEN: Soft, nontender, nondistended. No palpable organomegaly is noted. There is no rebound or guarding demonstrated. BACK: Shows spine grossly in the midline, normal-appearing thoracic kyphosis and minor flattening of lumbar lordotic curvature. Lumbar paraspinous musculature shows symmetrical on inspection, on palpation shows some moderate tenderness diffusely bilaterally, but only diffusely without significant radiation. The patient has good rotational motion of the lumbar spine, both laterally as well as extension and flexion without significant limitation, but with significant pain, especially to the left greater than 10 degrees and the right mildly past 10 degrees with extension; however, axial loading greater than 10 degrees, very significant pain, again, left greater than right, but present bilaterally. Forward flexion decreases this pain to a moderate extent. EXTREMITIES: The patient's lower extremities show deep tendon reflexes 1+ in the patellar and tendo-calcaneus tendons. Motor exam is approximately 4 on a scale of 5 on the left and 5/5 on the right with dorsiflexion and extension, but similar to previous exam. The posterior tibial pulses are 1+. No peripheral edema bilaterally. Options were discussed with the patient. The patient's old chart was reviewed as her current medication regimen updated. Current review of systems updated today as well. We will proceed with L4-L5 and L5-S1 bilateral facet joint injections today with fluoroscopic guidance. Risks were again discussed including, but not limited to bleeding, infection, possibility of epidural hematoma, subsequent neurological compromise, dural puncture, headaches, spinal cord and/or nerve damage, side effects of steroid medication and poor results regarding pain control. The patient understands and wished to proceed. The patient will return to the clinic in approximately 2 weeks for followup. She was counseled as to the return appointment, activity level and side effects to be aware of. DIAGNOSIS: Lumbar and lumbosacral spondylosis. PROCEDURE: Lumbar L4-L5 and L5-S1 facet joint injections bilaterally using C-arm fluoroscopic guidance under sterile prep and drape using local anesthetic. MEDICATIONS INJECTED: A total of 120 mg of Depo-Medrol plus 4 mL of 0.25% bupivacaine, 1 mL at each level, also 2 mL total of contrast. CONDITION AT DISCHARGE: Stable. The patient tolerated the procedure well, had no complications. NUBIA SUAZO MD DR: DOMINIC/edu JOB#: [id number] / [id number]
== END ==
LOC: PNCL 08:29
PROVIDERS: ATTEND Anesthesiology
DX: M47.816 Spondylosis without myelopathy or radiculopathy, lumbar region (principal); M51.16 Intervertebral disc disorders with radiculopathy, lumbar region; M48.061 Spinal stenosis, lumbar region without neurogenic claudication
CPT/HCPCS: 64493; 64494; 64495; J1030; J1040; J3490; Q9965; 64635; 64636

== ENCOUNTER → 2020-09-08 | Outpatient (CLI) | payer BC, OTHER ==
[~2020-09-08] MED LIST changes: +CELE200C PO; +GLUC-158 PO
--- NOTE | 2020-09-08 08:42 | PDOC ---
Progress Note - Pain Clinic Date of Service: DOS: DATE: 09/08/20 TIME: 08:38 Diagnosis: Dx: Lumbar degenerative disc disease with lumbar spinal stenosis and lumbar and lumbosacral spondylosis History or Present Illness: HPI: 60-year-old female returns for follow-up last seen October 08, 2019 status post bilateral lumbar L4-5 and L5-S1 medial branch facet blocks. Patient reports she did very well near 100% improvement for about 6 months following the injections pain been returning now over the past few months in the low back itself more on the right than the left and present bilaterally without radiation to the lower extremities patient reports its worse with walking standing changing positions initially became more noticeable with sitting for prolonged periods as well when she is working patient ports aching dull and tight again more on the right than the left but present bilaterally patient rates the pain is 8 on scale 10 is worse over the past week 6 on average 3 its least is a 6 today patient reports no new motor or sensory deficits initially she was doing much better with walking distances doing household activities work activities travel with greater ease and comfort and sleeping better at night patient reports beginning to awaken from sleep now about once every 4 to 5 years. Patient reports no new motor or sensory deficits no new bowel or bladder incontinence or other complaints. Physical Exam: VS: Blood pressure is 139/85 pulse 78 respirations 18 temperature 98.7 F height is 5 feet 10 inches weight is 281 pounds PE: PHYSICAL EXAMINATION: GENERAL: The patient is awake, alert, oriented, appropriate, very pleasant demeanor HEENT: Shows normocephalic, atraumatic. Extraocular movements are intact and symmetrical. Oral cavity: Mucous membranes moist and pink. NECK: Shows anterior throat supple without palpable lymphadenopathy noted. Swallow reflex symmetrical. CHEST: Shows normal on inspection. Breath sounds are clear bilaterally. HEART: Shows S1, S2 clear. No murmurs auscultated. ABDOMEN: Soft, nontender, nondistended. No palpable organomegaly is noted. No rebound or guarding demonstrated. BACK: Shows spine grossly in the midline. Normal-appearing cervical lordotic curvature. There is slightly increased thoracic kyphosis, some minor flattening of the lumbar lordotic curvature. Lumbar paraspinous muscles show symmetrical on inspection, on palpation shows some moderate tenderness diffusely throughout the upper, middle and lower distribution of the paraspinous muscles without specific trigger points, without radiation of pain. The patient has good rotational motion of the lumbar spine, both laterally, with moderate tenderness with right lateral rotation greater than 10 degrees as well as extension and axial loading lumbar spine with significant tenderness more on the right than the left but present bilaterally. No tenderness over the spinous processes, sacrum or sacroiliac regions. EXTREMITIES: Lower extremities show deep tendon reflexes 1+ in the patellar and tendo calcaneus tendons. Motor exam is 5 on a scale of 5 with right dorsiflexion, extension, quadriceps and hamstring flexion and 4/5 on the left. Peripheral pulses are 1+ posterior tibial. No peripheral edema is noted bilaterally. Lower extremities are warm and dry to touch, equal in color and appearance. SKIN: Shows warm and dry, good turgor. No edema. No sores, rashes or bruising throughout. Procedure: Procedure: Options were discussed with the patient. Patient's old chart was reviewed as her current medication regimen updated current review of systems updated today as well. We will proceed with bilateral L4-5 and L5-S1 medial branch facet injections today with fluoroscopic guidance. Risks were discussed including but not limited to: Bleeding, infection, possibility of epidural hematoma and subsequent neurological compromise, dural puncture, headaches, spinal cord and/or nerve damage, side effects of steroid medication, and poor results regarding pain control. Patient understands and wished to proceed. Patient will return to the clinic in approximate onset of return appointment activity level and side effects to be aware of. Medication Injected: Med Injected: Under sterile prep and drape using C-arm fluoroscopic guidance AP and lateral and oblique views, bilateral L4-5 and L5-S1 facet joint injections were per formed, medications injected: 120 mg Depo-Medrol +4 cc 0.25% bupivacaine +2 cc contrast. Condition at discharge stable patient tolerated the procedure well and no complications. Condition at Discharge: Condition at Discharge: Condition at discharge stable, patient tolerated procedure well and had no complications. NUBIA SUAZO MD September 08, 2020 08:42
--- NOTE | 2020-09-08 08:42 | PDOC4 ---
PROCEDURE Procedure Patient was consented for bilateral lumbar L4-5 and L5-S1 facet medial branch blocks with fluoroscopic guidance. Risks were discussed including but not limited to: Bleeding, infection, possibility of epidural hematoma and subsequent neurological compromise, dural puncture, headaches, spinal cord and/or nerve damage, side effects of steroid medication, and poor results regarding pain control. Patient understands and wished to proceed. Under sterile prep and drape using C-arm fluoroscopic guidance AP and lateral and oblique views, bilateral L4-5 and L5-S1 facet joint injections were performed, medications injected: 120 mg Depo-Medrol +4 cc 0.25% bupivacaine +2 cc contrast. Condition at discharge stable patient tolerated the procedure well and no complications. NUBIA SUAZO MD September 08, 2020 08:42
== END | disposition home or self-care (01) ==
LOC: PNCL 07:49
PROVIDERS: ATTEND Anesthesiology
DX: M51.36 Other intervertebral disc degeneration, lumbar region (principal); M48.061 Spinal stenosis, lumbar region without neurogenic claudication; M47.817 Spondylosis without myelopathy or radiculopathy, lumbosacral region; M54.5 Low back pain; E78.00 Pure hypercholesterolemia, unspecified; G47.30 Sleep apnea, unspecified; K21.9 Gastro-esophageal reflux disease without esophagitis; M19.90 Unspecified osteoarthritis, unspecified site; E03.9 Hypothyroidism, unspecified; F32.9 Major depressive disorder, single episode, unspecified; Z90.49 Acquired absence of other specified parts of digestive tract; Z90.710 Acquired absence of both cervix and uterus; Z98.51 Tubal ligation status; Z98.890 Other specified postprocedural states; Z87.891 Personal history of nicotine dependence; Z79.82 Long term (current) use of aspirin; Z79.899 Other long term (current) drug therapy; Z88.2 Allergy status to sulfonamides; Z88.1 Allergy status to other antibiotic agents; Z88.8 Allergy status to other drugs, medicaments and biological substances; Z82.49 Family history of ischemic heart disease and other diseases of the circulatory system; Z83.3 Family history of diabetes mellitus
CPT/HCPCS: 64493; 64494; J1030; J1040; J3490; Q9965; 62323

== ENCOUNTER → 2021-07-09 | Outpatient (CLI) | payer OTHER ==
[~2021-07-09] MED LIST changes: -BUPIVACAINE MPF 0.25% 10 ML VIAL. ONE; -IOHEXOL 180 MG/ML 10 ML VIAL. ONE; -methylPREDNISolone ACETATE 40 MG/ML VIAL. ONE; -methylPREDNISolone ACETATE 80 MG/ML VIAL. ONE
--- NOTE | 2021-07-09 11:13 | KCIC ---
Bilateral digital screening mammograms with 3-D tomosynthesis: Reason for examination: Routine screening. Comparison is made to previous studies dated back to 09/17/2014. Bilateral mammograms in CC and oblique projections were obtained with 2-D imaging and 3-D tomosynthes is imaging on a Siemens Inspiration unit and reviewed on the workstation. Interpretation was made wit h the benefit of CAD. The skin and nipples show no abnormalities. No abnormal axillary lymph nodes are seen. The breast par enchyma shows scattered fatty and fibroglandular density. (Breast density: Category B.) There continu e to be multiple circumscribed nodules in the right breast consistent with intramammary lymph nodes. There are no new dominant masses, suspicious calcifications or architectural distortion. Impression: No evidence of malignancy. Recommend routine screening. BI-RAD Category 2: Benign. "Our facility is accredited by the [employer] Mammography Program." This patient's information has been entered into a reminder system for the patient to be notified wit h the results of her examination and a target date for the next mammogram. Electronically signed by: Madhuri Ryder MD (07/09/2021 11:10 AM) [id number]
== END ==
LOC: KCIC MAMMO 09:13
PROVIDERS: ATTEND Family Medicine
DX: Z12.31 Encounter for screening mammogram for malignant neoplasm of breast (principal)
CPT/HCPCS: 77063; 77067